=== PATIENT | female | born 1985 ===

== ENCOUNTER 2016-04-01 10:21 | Inpatient (IN) ==
[2016-04-01 11:23] LABS: Basophils % 0.5 % (0.0-0.8); Eosinophils # 0.1 10*3/uL (0.0-0.87); Eosinophils % 0.9 % (0.00-10.9); Hematocrit 35.2 VOL% (35.7-47.0); Immature Granulocytes % 0.2 %; Immature Granulocytes Absolute 0.02 #; Lymphocytes # 2.6 10*3/uL (1.4-4.0); Lymphocytes % 29.6 % (21.3-54.2); Mean Corpuscular HGB Conc 34.1 GM/DL (32-36); Mean Corpuscular Hemoglobin 28 PG (27-34); Mean Platelet Volume 9.6 FL (9.6-12.0); Monocytes # 0.7 10*3/uL (0.11-0.8); Neutrophils # 5.4 10*3/uL (1.4-7.4); Neutrophils % 60.8 % (38.7-73.9); Platelet Count 387 10*3/uL (130-400); Red Blood Count 4.24 10*6/uL (3.8-5.5); White Blood Count 8.9 10*3/uL (4.5-13.71)
--- NOTE | 2016-04-01 11:48 | XRay Report ---
Exam: XR ankle 3V LT Date: 04/01/2016 10:51 AM Comparison: None Indication: Pain and swelling Technique: AP, oblique, and lateral left ankle. Findings: Soft tissue swelling. Evidence of ankle joint effusion. Sclerotic appearing ossific findings are noted beneath the medial malleolus and the distal fibula. Additional ossific/calcific findings are noted in the soft tissues with possible relative sclerosis in the talus. Marginal erosions/cystic findings on either side of the subtalar joint. Sclerotic appearing os trigonum. Impression: Soft tissue swelling with ankle joint effusion. Sclerotic ossific findings beneath the medial malleolus and distal fibula which can be seen with accessory ossicles or remote fractures. Additional multiple small ossific/calcific findings which could be related to more age indeterminant small avulsion fractures, infectious process, synovial calcifications, gouty, CPPD arthritis, or more aggressive synovial pathology/neoplasia. Probable chronic appearing os trigonum with cystic findings in the subtalar joint. MRI including scans with contrast recommended for further evaluation. PROCEDURE INTERPRETED AT [facility] [place] DEPARTMENT OF RADIOLOGY Final Report Signed by: Dr. La Flores
[2016-04-01 11:50] LABS: Calcium 8.2 MG/DL (8.5-10.1); Osmolality,Calculated 286.1 MOS/KG (273-304); Potassium 3.8 MMOL/L (3.5-5.1)
[2016-04-01] MEDS ORDERED: SODIUM CHLORIDE 0.9% 1,000 ML IV STA (11:55)
--- NOTE | 2016-04-01 11:58 | Emergency Department Note ---
Arrival - Arrival Chief Complaint: Extremity Problem Stated Complaint: [facility] ED Nursing Triage Note: Pt c/o left ankle pain and swelling that comes and goes since September last year after a left ankle injury. Mode of Arrival: Ambulatory Time Seen by Provider: 04/01/16 10:34 - History of Present Illness HPI Narrative: 30-year-old female presents today with complaint of swelling and pain of left ankle and foot. Patient states she's had this chronic swelling off and on ever since she injured her foot several months ago. Pain is described as aching and sharp palpation. Rates pain a 9 on a 10 scale today. Has no complaints of fever. Patient is also diabetic and reports she does not check her blood sugars on a regular basis. Date of Last Menstrual Period: Mar 07 Allergies/Adverse Reactions: Allergies Allergy/AdvReac Type Severity Reaction Status Date / Time No Known Allergies Allergy Verified 04/01/16 10:26 Home Medications: Home Medications Medication Instructions Recorded Confirmed Type metFORMIN [Glucophage] 500 mg PO BID 04/01/16 04/01/16 History Review of System - Review of System 12 point system: reviewed and no additional remarkable complaints except as stated - Review of System Constitutional: Present: as per HPI. Absent: fever Musculoskeletal: Present: as per HPI Medical,Surgical,& Family Hx - Medical History Endocrine: History of: Diabetes Mellitus (NIDDM) - Social History Smoking Status: Current every day smoker Exam Physical Examination: Gen.: Well-developed, well-nourished in no acute distress HEENT: Normocephalic. Pupils equal round and reactive to light with normal extraocular movement. Ear canals clear without discharge. Tympanic membranes with good light reflex and visualization of bony structures bilaterally. Throat without swelling, erythema or exudate. Neck: Supple without lymphadenopathy or nuchal rigidity Chest: Heart regular rate and rhythm without murmur. Lungs clear to auscultation and equal bilaterally. Abdomen: Soft and nontender without masses. Bowel sounds normoactive. Back: Without CVA or point tenderness. Extremities: Tenderness and edema of left ankle and foot. Warmth noted however they do not see any obvious symptoms of cellulitis at this time Vital Signs: Vital Signs Temperature 97.3 F L 04/01/16 10:22 Pulse Rate 97 H 04/01/16 10:22 Respiratory Rate 18 04/01/16 10:22 Blood Pressure 110/70 04/01/16 10:22 O2 Sat by Pulse Oximetry 99 04/01/16 10:22 Course - Consultations Consultation #1: Kierra Ludwig AUDIO VISUAL AIDS DIRECTOR Time: 11:59 (Will Evaluate pt in ED for admission.) Results - Labs CBC & BMP: 04/01/16 11:06 04/01/16 11:06 Lab Results: I have reviewed the patients labs Disposition Clinical Impression: Hyperglycemia, Cellulitis Case discussed with: patient Disposition: Still a Patient Condition: Stable Time of Disposition: 12:00
[2016-04-01] MEDS ORDERED: ACETAMINOPHEN 325 MG TABLET PO PRN ×2 (12:11→14:08)
[2016-04-01] MEDS ORDERED: DEXTROSE 50% 25 GM/50 ML VIAL IV PRN ×3 (12:11→14:08)
[2016-04-01] MEDS ORDERED: ZALEPLON 5 MG CAPSULE PO PRN ×2 (12:11→14:08)
[2016-04-01] MEDS ORDERED: GLUCAGON 1 MG VIAL IM PRN ×3 (12:11→14:08)
[2016-04-01] MEDS ORDERED: DOCUSATE SODIUM 100 MG CAPSULE PO PRN ×2 (12:11→14:08)
[2016-04-01] MEDS ORDERED: ONDANSETRON 4 MG/2 ML VIAL IV PRN ×2 (12:11→14:08)
[2016-04-01] MEDS ORDERED: SODIUM CHLORIDE 0.9% 1,000 ML IV SCH (12:30)
[2016-04-01] MEDS ORDERED: CEFTAROLINE 600 MG in SODIUM CHLORIDE 0.9% 100 ML IV SCH (12:30)
[2016-04-01] MEDS ORDERED: ENOXAPARIN 40 MG/0.4 ML SYRINGE SUBCUT SCH (12:30)
--- NOTE | 2016-04-01 12:34 | Hospitalist Consult Note ---
<Kierra Ludwig N - Last Filed: 04/01/16 12:25> Assessment and Plan - Time spent with patient Time spent with patient: Greater than 30 minutes (1) Left ankle pain Status: Acute Assessment and plan: Ankle xray shows joint effusion, recommend orthopedics to tap and potential culture If pt is to be discharged we will recommend home medications await uric acid if pt is admitted we will be glad to follow and assist with DM management Current Visit: Yes (2) Hyperglycemia Status: Acute Assessment and plan: IV fluids in ER, recheck recommend follow up with [facility], compliance with metformin Current Visit: Yes History of Present Illness - Data of Consult Patient: new to practice Consult date: 04/01/16 Requesting Physician: Tolu Singh - Consult Narrative Reason for consult: left ankle pain and tenderness History of present illness: Ms. Marquez is a 30 year old female who presents to the ER today with left ankle pain and swelling. Left ankle is swollen and warm to touch. She states that this has been an ongoing problem with the swelling coming and going since last September. She was told it was a sprain and a bruise by 2 different ERs in the past. She states that it began getting worse again last week, this time more painful than normal and having some tingling on the bottom of her feet. Left ankle is much warmer to touch than right, redness noted around the heel area but no redness radiating up the leg. Good distal PMS noted to left foot. She states painful to ambulate, and painful ROM. Denies prior history of gout. She is a diabetic, glucoses elevated today in the mid 400s. She states that she takes metformin daily, we have recommended that she follow-up with [facility] regarding her diabetes as this is uncontrolled. She is not symptomatic for hyperglycemia. She will receive IV fluids in the Er and we will recheck this. PMH includes DM, treated with Metformin, often non-compliant. PSH includes one C -section. She smokes about 1-2 packs of cigarettes a week and denies alcohol or drug use. At present denies chest pain, SOB, abdominal pain, n/v/d, fever or chills. CC: - Home Medications and Allergies Home Medications: Home Medications Medication Instructions Recorded Confirmed Type metFORMIN [Glucophage] 500 mg PO BID 04/01/16 04/01/16 History Allergies/Adverse Reactions: Allergies Allergy/AdvReac Type Severity Reaction Status Date / Time No Known Allergies Allergy Verified 04/01/16 10:26 Medical,Surgical,& Family Hx - Medical History Endocrine: History of: Diabetes Mellitus (NIDDM) - Social History Smoking Status: Current every day smoker 12 point system: reviewed and no additional remarkable complaints except as stated Exam - Constitutional Vitals: Period Temp Pulse Resp BP Sys/Salcedo Pulse Ox Last 24 Hr 97.3 F 97 18 110/70 99 General appearance: no acute distress - Head Head exam: Present: normal inspection, normocephalic - Eye Eye exam: Present: EOMI. Absent: scleral icterus Pupils: Present: NICCI, normal accommodation - ENT ENT exam: Present: normal exam, normal oropharynx - Neck Neck exam: Present: normal inspection. Absent: lymphadenopathy - Respiratory Respiratory exam: Present: clear to auscultation bilaterally. Absent: wheezes - Cardiovascular Cardiovascular exam: Present: regular rate and rhythm. Absent: tachycardia - GI/Abdominal GI/Abdominal exam: Present: normal bowel sounds, soft. Absent: tenderness - Extremities Exam Extremities exam: Present: full ROM, edema (left ankle), other (erythema to left heel ) - Back Exam Back exam: Present: normal inspection. Absent: muscle spasm - Neurological Exam Neurological exam: Present: alert, oriented X3 - Psychiatric Psychiatric exam: Present: normal affect, normal mood - Skin Skin exam: Present: normal color, warm, dry Results - Labs CBC & BMP: 04/01/16 11:06 04/01/16 11:06 Lab Results: I have reviewed the past 24 hour labs Specialty Discharge - Follow Up or Referrals - Discharge Medications No Action metFORMIN [Glucophage] 500 mg PO BID <Tabatha Daley - Last Filed: 04/01/16 17:51> History of Present Illness - Consult Narrative History of present illness: This will be an H&P as I have discussed the case briefly with the orthopedic surgeon and it was recommended that the patient be admitted to our service and that the orthopedic service the on consult . Ms. Marquez is a 30 year old female w h/o DM II presented with left ankle pain and swelling that started a few days ago but the patient stated that she had similar problem over the past few months without clear diagnosis. Patient denies fever or chills or weight loss or trauma or IV drug use. Patient denies chest pain or SOB or diarrhea or blurred vision or palpitation. Exam as stated below.Gen:a&ox3, Neck no JVD & supple, heart s1s2+ rrr, lung CTAB no wheezing, abd soft/NT, EXT : left pedal swelling mainly around left ankle laterally/tender /LROM/warm/mild erythema. Otherwise no edema. A/P reviewed: - Left ankle pain and effusion could be due to infectious or inflammatory or other cause - hyperglycemia 2/2 uncontrolled DM II - dvt ppx P: discussed case briefly with orthSx and c/s, pain med, pt need tapping of left ankle joint w analysis, check Bd cx and start emperic abx/?antigout med check ESR, PT/OT, pain med prn, insulin regimen/HbA1c, antiemetic, IVF as needed , fall risk/PT/OT. Check MRI left ankle w/wo. CC: Tabatha Daley Exam - Constitutional Vitals: Period Temp Pulse Resp BP Sys/Salcedo Pulse Ox Last 24 Hr 98.0 F-98.2 F 80-84 17-20 119-120/74-78 98 Results - Labs CBC & BMP: 04/01/16 11:06 04/01/16 11:06
--- NOTE | 2016-04-01 14:14 | Hospitalist History & Physical ---
<Mariela Martinez - Last Filed: 04/01/16 14:11> Assessment and Plan - Time spent with patient Time spent with patient: Less than 30 minutes (due to assessment, plan and documentation) (1) Left ankle effusion Status: Acute Assessment and plan: Dr. Daley has spoken w/ Dr. Dela Cruz and he has been consulted to manage her ankle effusion. Current Visit: Yes (2) Hyperglycemia Status: Acute Assessment and plan: continue metformin Current Visit: Yes (3) Left ankle pain Status: Acute Current Visit: Yes (4) Diabetes Status: Acute Assessment and plan: continue metformin low dose sliding scale insulin ordered, accu-checks ac/hs diabetic education consulted- ? compliance. Current Visit: Yes Qualifiers: Diabetes mellitus type: type 2 History of Present Illness Chief complaint: left ankle pain History of present illness: Ms. Marquez is a 30 year old female who presented to the ED today with c/o left ankle pain. Please see Kierra Ludwig NP, Consult note for entire history of exam. Dr. Daley has spoken with Dr. Dela Cruz, and it was suggested that we admit Ms. Marquez and consult him for treatment and evaluation of her left ankle effusion. She will be continued on her Metformin 500 mg PO BID, and Dr. Dela Cruz has been consulted. PRN medications have been ordered. Further plan and assessment to follow. Home Medications Medication Instructions Recorded Confirmed Type metFORMIN [Glucophage] 500 mg PO BID 04/01/16 04/01/16 History Allergies Allergy/AdvReac Type Severity Reaction Status Date / Time No Known Allergies Allergy Verified 04/01/16 10:26 Medical,Surgical,& Family Hx - Medical History Endocrine: History of: Diabetes Mellitus (NIDDM) - Social History Smoking Status: Current every day smoker Exam - Constitutional Vitals: Period Temp Pulse Resp BP Sys/Salcedo Pulse Ox Last 24 Hr 97.3 F-98.0 F 80-97 18-20 110-119/70-78 99 Results - Labs CBC & BMP: 04/01/16 11:06 04/01/16 11:06 Lab Results: I have reviewed the past 24 hour labs <Tabatha Daley - Last Filed: 04/02/16 17:27> Assessment and Plan (1) Left ankle pain Problem details: etiology being worked up. ESR elevated. Status: Acute Current Visit: Yes (2) Left ankle effusion Status: Acute Current Visit: Yes (3) Hyperglycemia due to type 2 diabetes mellitus Status: Acute Current Visit: Yes (4) UTI (urinary tract infection) Problem details: Posible GNR-UTI. Status: Acute Current Visit: Yes (5) Microcytic hypochromic anemia Status: Acute Current Visit: Yes History of Present Illness History of present illness: Please refer to the H&P on the consult note to that's where I added my addendum. Exam - Constitutional Vitals: Period Temp Pulse Resp BP Sys/Salcedo Pulse Ox Last 24 Hr 97.8 F-98.8 F 72-84 16-20 104-136/64-83 97-100 Results - Labs CBC & BMP: 04/02/16 05:42 04/02/16 05:42
[2016-04-01] MEDS: SODIUM CHLORIDE 0.9% 1,000 ML IV SCH (15:40)
[2016-04-01] MEDS: INSULIN LISPRO 100 UNIT/ML SUBCUT SCH ×2 (16:05→21:02)
[2016-04-01] MEDS ORDERED: INSULIN LISPRO 100 UNIT/ML SUBCUT SCH (16:30)
[2016-04-01 19:12] LABS: Apearance,Urine CLOUDY (Clear); Bacteria,Urine Many /HPF (Few); Bilirubin,Urine Negative (Negative); Blood, Urine Small mg/dL (Negative); Glucose,Urine (UA) >=500 mg/dL (Negative); Ketones,Urine Negative (Negative); Nitrite,Urine Negative (Negative); Protein,Urine 30 MG/DL; RBC,Urine 19 /HPF (0-4); Squamous Epithelial Cell,Urine Occasional /HPF (0-10); Urine Color Yellow (Yellow); Urine Specific Gravity 1.009 (1.001-1.035); Urine Urobilinogen < 2.0 EU/DL (0.2-1.0); WBC,Urine 507 /HPF (0-6)
--- NOTE | 2016-04-01 19:44 | Orthopedic Consult Note ---
History of Present Illness Chief complaint: left ankle pain History of present illness: Ms. Marquez is a 30 year old female who has been complaining of chronic left ankle pain for the last 6 months. The patient had an inversion injury. She is told that she had a sprain. She's had intermittent pain and swelling. Generally last several days before resolving. Last week it swelled up and she' s had continued pain. She denies any history of recent injury. She denies any fevers or chills. Patient is a noncompliant diabetic. She's been a diabetic since 2007. She denies any numbness or tingling in her right lower extremity. Since this most recent issue of swelling, she's had some diffuse numbness. She denies any history of steroid use. She states that it takes her 3 weeks to get through pack of cigarettes. She is an occasional drinker. She denies any illicit drugs. She is currently not employed. Exam left lower extremity shows that she is mildly swollen about her ankle. There is no erythema, warmth or induration. She is tender. Flexion and extension of her ankle is limited secondary to pain. There is no pain with inversion eversion of her hindfoot. She has multiple healed skin lesions on the dorsum of her foot. She can flex extend her toes. Sensations intact to light touch to the first dorsal webspace, plantar and dorsal aspects of her foot. She is a 2+ dorsalis pedis pulse. Capillary refills less than 2 seconds. There is no gross deformity. Radiographs ankle show a posterior medial tuberosity fracture of her talus which appears chronic. Also has an ossific density distal to her fibula which is concerning for a prior avulsion fracture. There may be some sclerosis of her talar body. Her talar body also appears slightly flattened. Laboratory values demonstrate a normal uric acid and white count. The patient has an elevated sedimentation rate of 72. And a mildly elevated C-reactive protein. She does have a positive urinalysis. Impression: Left ankle pain and swelling Plan: I'm not sure of the exact etiology of her pain and swelling. It may be related to her previous injury where she may have a chronic nonunion of her posterior medial process of her talus. The patient is an uncontrolled diabetic and this could be Charcot arthropathy or possibly avascular necrosis of her talus. I doubt that this is a septic arthritis from either staph or strep or a crystalline arthritis. I've already ordered a C-reactive protein and sedimentation rate. I'm going to obtain a MRI of her hindfoot and ankle. Depending upon the result of the MRI, I 'll decide whether to aspirate her ankle. As a possible monarthritis, disseminated gonococcus and Chlamydia are also part of the differential diagnosis. I'm going to defer to the hospitalist service for workup of this possibility. Home Medications Medication Instructions Recorded Confirmed Type metFORMIN [Glucophage] 500 mg PO BID 04/01/16 04/01/16 History Allergies Allergy/AdvReac Type Severity Reaction Status Date / Time No Known Allergies Allergy Verified 04/01/16 10:26 Medical,Surgical,& Family Hx - Medical History Endocrine: History of: Diabetes Mellitus (NIDDM) - Social History Smoking Status: Current every day smoker Exam - Constitutional Vitals: Period Temp Pulse Resp BP Sys/Salcedo Pulse Ox Last 24 Hr 98.0 F-98.2 F 80-84 17-20 119-120/74-78 98 Results - Labs CBC & BMP: 04/01/16 11:06 04/01/16 11:06 Specialty Discharge - Follow Up or Referrals - Discharge Medications No Action metFORMIN [Glucophage] 500 mg PO BID
[2016-04-01] MEDS: PIPERACILLIN/TAZOBACTAM 3,375 MG in SODIUM CHLORIDE 0.9% 100 ML IV SCH (20:57)
[2016-04-01] MEDS ORDERED: metFORMIN 500 MG TABLET PO SCH (21:00)
[2016-04-01] MEDS: COLCHICINE 0.6 MG TABLET PO SCH (21:02)
[2016-04-02] MEDS: VANCOMYCIN INJ 1,000 MG in SODIUM CHLORIDE 0.9% 250 ML IV SCH ×3 (00:51→17:17)
[2016-04-02] MEDS: PIPERACILLIN/TAZOBACTAM 3,375 MG in SODIUM CHLORIDE 0.9% 100 ML IV SCH ×3 (04:11→20:33)
[2016-04-02 06:16] LABS: Basophils # 0.1 10*3/uL (0.0-0.2); Basophils % 0.6 % (0.0-0.8); Eosinophils # 0.3 10*3/uL (0.0-0.87); Eosinophils % 3.2 % (0.00-10.9); Hemoglobin 11.3 GM/DL (12.0-16.0); Immature Granulocytes % 0.4 %; Immature Granulocytes Absolute 0.03 #; Mean Corpuscular HGB Conc 33.2 GM/DL (32-36); Mean Corpuscular Hemoglobin 28 PG (27-34); Mean Corpuscular Volume 85.4 FL (87-102); Mean Platelet Volume 9.8 FL (9.6-12.0); Monocytes # 0.7 10*3/uL (0.11-0.8); Monocytes % 7.8 % (1.7-12.7); Neutrophils # 4.4 10*3/uL (1.4-7.4); Platelet Count 345 10*3/uL (130-400); Red Blood Count 3.98 10*6/uL (3.8-5.5); Red Cell Distribution Width 13.2 % (9.3-17.3); White Blood Count 8.4 10*3/uL (4.5-13.71)
[2016-04-02 06:55] LABS: Alanine Aminotransferase < 9 U/L (13-56); Albumin 2.4 G/DL (3.4-5.0); Alkaline Phosphatase 122 U/L (45-117); Aspartate Amino Transferase 10 U/L (0-37); Blood Urea Nitrogen 7 MG/DL (7-18); Calcium 8.5 MG/DL (8.5-10.1); Glucose 237 MG/DL (74-106); Osmolality,Calculated 284.4 MOS/KG (273-304); Potassium 4.4 MMOL/L (3.5-5.1); Sodium 140 MMOL/L (136-145); Total Protein 6.9 G/DL (6.4-8.3)
[2016-04-02] MEDS: SODIUM CHLORIDE 0.9% 1,000 ML IV SCH (08:57)
[2016-04-02] MEDS: PANTOPRAZOLE 40 MG TABLET PO SCH (08:57)
[2016-04-02] MEDS: COLCHICINE 0.6 MG TABLET PO SCH (08:57)
[2016-04-02] MEDS: INSULIN LISPRO 100 UNIT/ML SUBCUT SCH ×4 (08:58→20:34)
[2016-04-02] MEDS ORDERED: PANTOPRAZOLE 40 MG TABLET PO SCH (09:00)
--- NOTE | 2016-04-02 11:09 | Magnetic Resonance Report ---
MRI left ankle Indication: Pain with history of injury 6 months previously and abnormal x-ray Comparison: X-ray 01 April 2016 Technique: Axial sagittal and coronal imaging of the ankles performed both prior to and after contrast. Contrast dose is 12 cc Dotarem. Findings: There is diffusely abnormal edema involving the talus with loss of the talus volume posteriorly and suggestion of previous fracture with displacement of fragment from the posterior medial talus in the medial direction. There is also loss of the normal fat marrow signal within the talus especially the body of the talus. Large joint effusion is present but the ankle and subtalar joints. There is edema in the adjacent soft tissues. There is edema present involving the majority of the calcaneus without distinct fracture line. There is enhancement of the synovium and adjacent soft tissues. Impression: Findings suggests a previous fracture of the posterior medial talus and talus at the posterior subtalar joint with slight medial displacement of the fragment. There is extensive edema within the talus and calcaneus. In addition there is loss of normal fat marrow signal within the body of the talus, may represent osteonecrosis. There is complex joint effusion, edema and enhancement. Infection cannot be excluded. CT may be useful to further define the osseous injury. PROCEDURE INTERPRETED AT [facility] DEPARTMENT OF RADIOLOGY Final Report Signed by: Dr. Chuck Thomas
--- NOTE | 2016-04-02 11:22 | Hospitalist Progress Note ---
Assessment and Plan - Time spent with patient Time spent with patient: Greater than 30 minutes (1) Left ankle pain Problem details: etiology being worked up. ESR elevated. Status: Acute Assessment and plan: related to lt ankle effusion and possibly sequelae of previous fructure, awaits MRI report. Pain med prn. constipation ppx Current Visit: Yes (2) Left ankle effusion Status: Acute Assessment and plan: ortho service following. Lt ankle not tapped yet. Awaits more recs from ortho. MRI done this am. pt on emperic abx and antigout meds once joint tapped and analysis done it will help guide therapy as indicated. Current Visit: Yes (3) Hyperglycemia due to type 2 diabetes mellitus Status: Acute Assessment and plan: c/w insulin regimen, adjust as needed, BS checks. A1c 12. councel. Current Visit: Yes (4) UTI (urinary tract infection) Problem details: Posible GNR-UTI. Status: Acute Assessment and plan: c/w abx. f/u Sn. Current Visit: Yes (5) Microcytic hypochromic anemia Status: Acute Assessment and plan: Hb 11.3, check iron studies. Current Visit: Yes Hospitalist: Subjective Interval history: Pt pain better with pain med. NO acute events O/N. Pt just came back from MRI w/ wo of Lt ankle. Pt denies CP, sob, vomiting, diarrhea, hemoptysis. Lt foot still swallend around lt ankle. Exam - Constitutional Vitals: Period Temp Pulse Resp BP Sys/Salcedo Pulse Ox Last 24 Hr 98 F-98.4 F 72-84 16-20 104-136/64-78 97-100 Exam: Gen:a&ox3, NAD, Neck no JVD & supple, heart s1s2+ rrr, lung CTAB no wheezing, abd soft/NT, EXT : left pedal swelling mainly around left ankle laterally/tender/LROM/warm/ no erythema. Otherwise no edema. HEENT: PERRL Results - Labs CBC & BMP: 04/02/16 05:42 04/02/16 05:42
[2016-04-02 12:41] LABS: % Iron Saturation 26.5 % (18-50)
--- NOTE | 2016-04-02 18:15 | Orthopedic Progress Note ---
Orthopedics - Subjective Interval history: Mrs. Higgins was seen this evening. Her ankle is a little better. Exam is unchanged. There is no induration or erythema. Her ankle demonstrates mild to moderate swelling. MRI report films reviewed demonstrating findings consistent with avascular necrosis. Impression: Posttraumatic avascular necrosis left talus Plan: I've discussed with the patient findings of the MRI. I discussed that this unfortunately is a life changing diagnosis and she can anticipate further problems with her ankle and may in the future require a tibiotalocalcaneal fusion. I have instructed her on the importance of controlling her diabetes. I've advised use of a cast boot and is to be worn 23-1/2 hours per day. She will be nonweightbearing on her left lower extremity. Physical therapy was consulted for crutch training. She does not require aspiration, antibiotics or colchicine for her ankle. She can be discharged when her diabetes and urinary tract infection are optimized. She will follow-up with me in 10-14 days. Exam - Constitutional Vitals: Period Temp Pulse Resp BP Sys/Salcedo Pulse Ox Last 24 Hr 97.8 F-100.8 F 72-110 16-20 104-136/61-83 97-100 Results - Labs CBC & BMP: 04/02/16 05:42 04/02/16 05:42
[2016-04-02] MEDS: INSULIN GLARGINE 100 UNIT/ML SUBCUT SCH (20:33)
[2016-04-03] MEDS: VANCOMYCIN INJ 1,000 MG in SODIUM CHLORIDE 0.9% 250 ML IV SCH ×2 (00:41→23:26)
[2016-04-03] MEDS: PIPERACILLIN/TAZOBACTAM 3,375 MG in SODIUM CHLORIDE 0.9% 100 ML IV SCH ×3 (04:20→21:05)
[2016-04-03 06:38] LABS: Basophils # 0.1 10*3/uL (0.0-0.2); Basophils % 0.4 % (0.0-0.8); Eosinophils # 0.2 10*3/uL (0.0-0.87); Eosinophils % 1.3 % (0.00-10.9); Hematocrit 30.9 VOL% (35.7-47.0); Immature Granulocytes % 0.7 %; Immature Granulocytes Absolute 0.11 #; Lymphocytes # 2.7 10*3/uL (1.4-4.0); Lymphocytes % 17.3 % (21.3-54.2); Mean Corpuscular HGB Conc 32.4 GM/DL (32-36); Mean Corpuscular Hemoglobin 28 PG (27-34); Mean Corpuscular Volume 86.6 FL (87-102); Mean Platelet Volume 10.2 FL (9.6-12.0); Monocytes # 1.1 10*3/uL (0.11-0.8); Monocytes % 6.9 % (1.7-12.7); Neutrophils # 11.5 10*3/uL (1.4-7.4); Neutrophils % 73.4 % (38.7-73.9); Platelet Count 303 10*3/uL (130-400); Red Blood Count 3.57 10*6/uL (3.8-5.5); Red Cell Distribution Width 13.1 % (9.3-17.3); White Blood Count 15.6 10*3/uL (4.5-13.71)
[2016-04-03 07:12] LABS: Calcium 7.6 MG/DL (8.5-10.1); Osmolality,Calculated 279.7 MOS/KG (273-304); Potassium 4.1 MMOL/L (3.5-5.1)
[2016-04-03] MEDS: PANTOPRAZOLE 40 MG TABLET PO SCH (09:43)
[2016-04-03] MEDS: SODIUM CHLORIDE 0.45% 1,000 ML IV SCH ×2 (09:44→23:26)
[2016-04-03] MEDS: INSULIN LISPRO 100 UNIT/ML SUBCUT SCH ×5 (09:44→23:26)
--- NOTE | 2016-04-03 19:35 | Hospitalist Progress Note ---
Assessment and Plan - Time spent with patient Time spent with patient: Greater than 30 minutes (1) Avascular necrosis Status: Acute Assessment and plan: Will discontinue antibiotics. Current Visit: Yes (2) NATHANAEL (acute kidney injury) Status: Acute Assessment and plan: Discontinue nephrotoxic medications including vanc, and increase fluids. May need a Nephro consult. Current Visit: Yes (3) UTI (urinary tract infection) Problem details: Posible GNR-UTI. Status: Acute Assessment and plan: Continue antibiotics! Current Visit: Yes Hospitalist: Subjective Interval history: Patient has no new complaints. Exam - Constitutional Vitals: Period Temp Pulse Resp BP Sys/Salcedo Pulse Ox Last 24 Hr 97.6 F-98.9 F 69-98 16-20 82-108/42-69 97-100 General appearance: no acute distress - Head Head exam: Present: normocephalic, atraumatic - Eye Eye exam: Present: EOMI Pupils: Present: NICCI - ENT ENT exam: Present: normal exam - Neck Neck exam: Present: normal inspection - Respiratory Respiratory exam: Present: clear to auscultation bilaterally. Absent: rhonchi, wheezes - Cardiovascular Cardiovascular exam: Present: regular rate and rhythm. Absent: gallop, rubs, systolic murmur - GI/Abdominal GI/Abdominal exam: Present: normal bowel sounds, soft. Absent: distended, firm , guarding, tenderness, rebound - Extremities Exam Extremities exam: Present: normal inspection, edema, other (left ankle edema and pain). Absent: calf tenderness Results - Labs CBC & BMP: 04/03/16 05:27 04/03/16 05:27 Lab Results: I have reviewed the past 24 hour labs
[2016-04-03] MEDS: INSULIN GLARGINE 100 UNIT/ML SUBCUT SCH (21:05)
[2016-04-03] MEDS: SODIUM CHLORIDE 0.9% 1,000 ML IV SCH (23:27)
[2016-04-04] MEDS: PIPERACILLIN/TAZOBACTAM 3,375 MG in SODIUM CHLORIDE 0.9% 100 ML IV SCH ×3 (03:27→21:25)
[2016-04-04 06:36] LABS: Basophils % 0.4 % (0.0-0.8); Eosinophils # 0.2 10*3/uL (0.0-0.87); Eosinophils % 1.6 % (0.00-10.9); Hematocrit 30.3 VOL% (35.7-47.0); Hemoglobin 9.6 GM/DL (12.0-16.0); Immature Granulocytes % 0.5 %; Immature Granulocytes Absolute 0.05 #; Lymphocytes # 2.2 10*3/uL (1.4-4.0); Lymphocytes % 21.6 % (21.3-54.2); Mean Corpuscular HGB Conc 31.7 GM/DL (32-36); Mean Corpuscular Hemoglobin 28 PG (27-34); Mean Corpuscular Volume 87.8 FL (87-102); Mean Platelet Volume 10.3 FL (9.6-12.0); Monocytes # 1.2 10*3/uL (0.11-0.8); Neutrophils # 6.6 10*3/uL (1.4-7.4); Neutrophils % 63.9 % (38.7-73.9); Platelet Count 280 10*3/uL (130-400); Red Blood Count 3.45 10*6/uL (3.8-5.5); White Blood Count 10.3 10*3/uL (4.5-13.71)
[2016-04-04] MEDS: SODIUM CHLORIDE 0.45% 1,000 ML IV SCH ×4 (06:40→11:48)
[2016-04-04 07:13] LABS: Calcium 7.7 MG/DL (8.5-10.1); Osmolality,Calculated 286.8 MOS/KG (273-304); Potassium 4.3 MMOL/L (3.5-5.1)
[2016-04-04] MEDS: INSULIN LISPRO 100 UNIT/ML SUBCUT SCH ×5 (09:05→21:40)
[2016-04-04] MEDS: PANTOPRAZOLE 40 MG TABLET PO SCH (09:06)
--- NOTE | 2016-04-04 09:25 | Orthopedic Progress Note ---
Orthopedics - Subjective Interval history: Ms Marquez has worked with therapy and has a cast boot. Her ankle feels better and edema is decreased. She has less pain with rom of her ankle. Posttraumatic AVN left talus Will sign off. Instructions reviewed. She will follow up in 10 to 14 days. Exam - Constitutional Vitals: Period Temp Pulse Resp BP Sys/Salcedo Pulse Ox Last 24 Hr 97.6 F-98.7 F 73-86 16-20 103-121/66-74 92-100 Results - Labs CBC & BMP: 04/04/16 05:30 04/04/16 05:30
--- NOTE | 2016-04-04 09:43 | Hospitalist Progress Note ---
Assessment and Plan - Time spent with patient Time spent with patient: Greater than 30 minutes (1) Avascular necrosis Status: Acute Assessment and plan: Continue supportive care. Appreciate Orthopedics evaluation. Current Visit: Yes (2) NATHANAEL (acute kidney injury) Status: Acute Assessment and plan: Discontinue nephrotoxic medications including vanc, and increase fluids. Will consult Nephrology. Current Visit: Yes (3) UTI (urinary tract infection) Problem details: Posible GNR-UTI. Status: Acute Assessment and plan: Continue antibiotics. Current Visit: Yes Hospitalist: Subjective Interval history: No complaints, no overnight events. Reports improving left ankle swelling. Exam - Constitutional Vitals: Period Temp Pulse Resp BP Sys/Salcedo Pulse Ox Last 24 Hr 97.6 F-98.7 F 73-86 16-20 103-121/66-74 92-100 General appearance: no acute distress - Head Head exam: Present: normocephalic, atraumatic - Eye Eye exam: Present: EOMI Pupils: Present: NICCI - ENT ENT exam: Present: normal exam - Neck Neck exam: Present: normal inspection - Respiratory Respiratory exam: Present: clear to auscultation bilaterally. Absent: rhonchi, wheezes - Cardiovascular Cardiovascular exam: Present: regular rate and rhythm. Absent: gallop, rubs, systolic murmur - GI/Abdominal GI/Abdominal exam: Present: normal bowel sounds, soft. Absent: distended, firm , guarding, tenderness, rebound - Extremities Exam Extremities exam: Present: normal inspection. Absent: calf tenderness, edema Results - Labs CBC & BMP: 04/04/16 05:30 04/04/16 05:30 Lab Results: I have reviewed the past 24 hour labs Specialty Discharge - Follow Up or Referrals Follow up with: North Dela Cruz Jr., MD [Physician] - 2 Weeks
--- NOTE | 2016-04-04 13:57 | Nephrology Consult Note ---
History of Present Illness Chief complaint: ARF History of present illness: Ms. Marquez is a 30 year old female with manual history of diabetes mellitus who has complicated left ankle fracture/avascular necrosis. On admission several days ago she received vancomycin 1 g every 8 hours with her normal renal function but her trough level when checked yesterday was 48. The flank masses been stop in the interval her creatinine is risen from 0.7 on admission to 2.2. She is making urine and feels fine. Her chest is clear heart without rub or gallop MsVijaya no peripheral edema medicines are reviewed here and she's currently taking Zosyn and has an Escherichia coli urinary tract infection which was somewhat symptomatic with urinary frequency on admission. Urinalysis not been done and we'll get one of those. I expect her creatinine to rise a bit further before it improves. I do think that we can expect improvement and from what I can review of her record, it looks like this is related to drug toxicity and will improve. Impression #1 acute renal failure secondary to vancomycin nephrotoxicity #2 diabetes mellitus #3 complex ankle injuries/avascular necrosis Plan: Monitor creatinine and I do expect it to continue to rise before improving Home Medications Medication Instructions Recorded Confirmed Type metFORMIN [Glucophage] 500 mg PO BID 04/01/16 04/01/16 History Allergies Allergy/AdvReac Type Severity Reaction Status Date / Time No Known Allergies Allergy Verified 04/01/16 10:26 Medical,Surgical,& Family Hx - Medical History Endocrine: History of: Diabetes Mellitus (NIDDM) - Social History Smoking Status: Current every day smoker Review of Systems 12 point system: reviewed and no additional remarkable complaints except as stated Exam - Vital Signs Vital signs: Period Temp Pulse Resp BP Sys/Salcedo Pulse Ox Last 24 Hr 97.6 F-99.6 F 71-86 16-20 107-129/66-78 92-100 - General Appearance General appearance: well-developed EENT: ATNC Neck: no JVD, no thyromegaly, no carotid bruit, supple Respiratory: no kyphosis, no scoliosis Cardiology: no murmurs, no rub, no gallops, no edema, regular rate, regular rhythm, normal S1, normal S2 Gastrointestinal: normoactive bowel sounds Integumentary: no rash, warm and dry Neurologic: no focal deficit, no asterixis, alert and oriented x3, reflexes 2+ and symmetric, gait normal, strength 5/5 Musculoskeletal: no deformities (boot left foot), no erythema, no cyanosis, no clubbing Psychiatric: mood/affect appropriate, cooperative Results - Labs CBC & BMP: 04/04/16 05:30 04/04/16 05:30 Assessment and Plan - Time spent with patient Time spent with patient: Greater than 30 minutes (1) ARF (acute renal failure) Status: Acute Current Visit: Yes (2) Diabetes Status: Acute Current Visit: Yes Qualifiers: Diabetes mellitus type: type 2 (3) UTI (urinary tract infection) Problem details: Posible GNR-UTI. Status: Acute Current Visit: Yes Specialty Discharge - Follow Up or Referrals Follow up with: North Dela Cruz Jr., MD [Physician] - 04/17/16 1:45 pm
[2016-04-04] MEDS: INSULIN GLARGINE 100 UNIT/ML SUBCUT SCH (21:27)
[2016-04-05 02:51] LABS: Apearance,Urine Slightly Hazy (Clear); Bacteria,Urine Occasional /HPF (Few); Bilirubin,Urine Negative (Negative); Blood, Urine Moderate mg/dL (Negative); Glucose,Urine (UA) 50 mg/dL (Negative); Ketones,Urine Negative (Negative); Mucus,Urine Occasional /LPF (Occasional); Nitrite,Urine Negative (Negative); Protein,Urine Negative; RBC,Urine 29 /HPF (0-4); Squamous Epithelial Cell,Urine Occasional /HPF (0-10); Urine Color Straw (Yellow); Urine Specific Gravity 1.003 (1.001-1.035); Urine Urobilinogen < 2.0 EU/DL (0.2-1.0); WBC,Urine 62 /HPF (0-6)
[2016-04-05] MEDS: PIPERACILLIN/TAZOBACTAM 3,375 MG in SODIUM CHLORIDE 0.9% 100 ML IV SCH ×3 (04:30→20:58)
[2016-04-05 04:52] LABS: Basophils # 0.1 10*3/uL (0.0-0.2); Basophils % 0.4 % (0.0-0.8); Eosinophils # 0.2 10*3/uL (0.0-0.87); Eosinophils % 1.3 % (0.00-10.9); Hematocrit 30.6 VOL% (35.7-47.0); Hemoglobin 9.9 GM/DL (12.0-16.0); Immature Granulocytes % 0.3 %; Immature Granulocytes Absolute 0.04 #; Lymphocytes # 3.6 10*3/uL (1.4-4.0); Lymphocytes % 28.7 % (21.3-54.2); Mean Corpuscular HGB Conc 32.4 GM/DL (32-36); Mean Corpuscular Hemoglobin 28 PG (27-34); Mean Corpuscular Volume 87.2 FL (87-102); Mean Platelet Volume 10.4 FL (9.6-12.0); Monocytes # 1.4 10*3/uL (0.11-0.8); Monocytes % 11.6 % (1.7-12.7); Neutrophils # 7.1 10*3/uL (1.4-7.4); Neutrophils % 57.7 % (38.7-73.9); Platelet Count 280 10*3/uL (130-400); Red Blood Count 3.51 10*6/uL (3.8-5.5); Red Cell Distribution Width 13.1 % (9.3-17.3); White Blood Count 12.4 10*3/uL (4.5-13.71)
[2016-04-05 05:26] LABS: Calcium 7.9 MG/DL (8.5-10.1); Osmolality,Calculated 281.3 MOS/KG (273-304); Potassium 3.9 MMOL/L (3.5-5.1)
[2016-04-05] MEDS: INSULIN LISPRO 100 UNIT/ML SUBCUT SCH ×4 (07:30→21:00)
[2016-04-05] MEDS: PANTOPRAZOLE 40 MG TABLET PO SCH (10:25)
[2016-04-05] MEDS: SODIUM CHLORIDE 0.45% 1,000 ML IV SCH ×4 (10:35→13:48)
--- NOTE | 2016-04-05 16:07 | Hospitalist Progress Note ---
Assessment and Plan - Time spent with patient Time spent with patient: Greater than 30 minutes (1) Avascular necrosis Status: Acute Assessment and plan: Continue supportive care. Appreciate Orthopedics evaluation. Current Visit: Yes (2) NATHANAEL (acute kidney injury) Status: Acute Assessment and plan: Discontinue nephrotoxic medications including vanc, and increase fluids. Appreciate Nephrologys evaluation. Current Visit: Yes (3) UTI (urinary tract infection) Problem details: Posible GNR-UTI. Status: Acute Assessment and plan: Continue antibiotics. Current Visit: Yes (4) Swelling of joint, ankle, left Status: Acute Assessment and plan: Since discontinuation of vancomycin the patient has been having rising fevers. Also to note the patient's swelling dramatically improved while vancomycin was initiated. There is concern for a septic joint, will ask IR to perform an arthrocentesis. Consult ID. Start Linezolid. Current Visit: Yes Hospitalist: Subjective Interval history: Patient continues to have fevers since the vancomycin has been discontinued. No complaints otherwise. Exam - Constitutional Vitals: Period Temp Pulse Resp BP Sys/Salcedo Pulse Ox Last 24 Hr 98.6 F-100.5 F 66-87 16-20 116-147/72-95 99-100 General appearance: no acute distress - Head Head exam: Present: normocephalic, atraumatic - Eye Eye exam: Present: EOMI Pupils: Present: NICCI - ENT ENT exam: Present: normal exam - Neck Neck exam: Present: normal inspection - Respiratory Respiratory exam: Present: clear to auscultation bilaterally. Absent: rhonchi, wheezes - Cardiovascular Cardiovascular exam: Present: regular rate and rhythm. Absent: gallop, rubs, systolic murmur - GI/Abdominal GI/Abdominal exam: Present: normal bowel sounds, soft. Absent: distended, firm , guarding, tenderness, rebound - Extremities Exam Extremities exam: Present: normal inspection, other (left ankle is improved in swelling.). Absent: calf tenderness, edema Results - Labs CBC & BMP: 04/05/16 03:40 04/05/16 03:40 Lab Results: I have reviewed the past 24 hour labs Specialty Discharge - Follow Up or Referrals Follow up with: North Dela Cruz Jr., MD [Physician] - 04/17/16 1:45 pm
--- NOTE | 2016-04-05 16:11 | Nephrology Progress Note ---
Nephrology - PN: Subj Interval history: Ms. Gautam is improved with a creatinine of 2.3. Her acute renal failure seems to have plateaued. Hopefully with this she will begin to drop her creatinine in the next day or 2. I don't expect any long-term sequelae of this and I think she will drop back to her previous baseline renal function. Chest is clear she is in no distress. She still has her left foot in the cast boot and is tolerating it well. Exam (PN)-Nephrology - Vital Signs Vital signs: Period Temp Pulse Resp BP Sys/Salcedo Pulse Ox Last 24 Hr 98.6 F-100.5 F 66-87 16-20 116-147/72-95 99-100 - Lab 04/05/16 03:40 04/05/16 03:40 Most recent lab results Calcium 7.9 MG/DL (8.5-10.1) L 04/05/16 03:40 Assessment and Plan (1) ARF (acute renal failure) Status: Acute Current Visit: Yes (2) Diabetes Status: Acute Current Visit: Yes Qualifiers: Diabetes mellitus type: type 2 (3) UTI (urinary tract infection) Problem details: Posible GNR-UTI. Status: Acute Current Visit: Yes Specialty Discharge - Follow Up or Referrals Follow up with: North Dela Cruz Jr., MD [Physician] - 04/17/16 1:45 pm
[2016-04-05] MEDS: LINEZOLID INJ 600 MG in PREMIX 1 EACH IV SCH (18:25)
[2016-04-05] MEDS: INSULIN GLARGINE 100 UNIT/ML SUBCUT SCH (21:47)
[2016-04-06] MEDS: PIPERACILLIN/TAZOBACTAM 3,375 MG in SODIUM CHLORIDE 0.9% 100 ML IV SCH ×3 (04:02→21:34)
[2016-04-06] MEDS: SODIUM CHLORIDE 0.45% 1,000 ML IV SCH ×4 (04:09→16:30)
[2016-04-06 05:13] LABS: Basophils % 0.2 % (0.0-0.8); Eosinophils # 0.3 10*3/uL (0.0-0.87); Eosinophils % 2.3 % (0.00-10.9); Hematocrit 30.6 VOL% (35.7-47.0); Hemoglobin 9.9 GM/DL (12.0-16.0); Immature Granulocytes % 0.4 %; Immature Granulocytes Absolute 0.06 #; Lymphocytes # 3.4 10*3/uL (1.4-4.0); Lymphocytes % 25.1 % (21.3-54.2); Mean Corpuscular HGB Conc 32.4 GM/DL (32-36); Mean Corpuscular Hemoglobin 28 PG (27-34); Mean Corpuscular Volume 85.5 FL (87-102); Mean Platelet Volume 10.4 FL (9.6-12.0); Monocytes # 1.6 10*3/uL (0.11-0.8); Monocytes % 11.5 % (1.7-12.7); Neutrophils # 8.2 10*3/uL (1.4-7.4); Neutrophils % 60.5 % (38.7-73.9); Platelet Count 298 10*3/uL (130-400); Red Blood Count 3.58 10*6/uL (3.8-5.5); Red Cell Distribution Width 12.9 % (9.3-17.3); White Blood Count 13.5 10*3/uL (4.5-13.71)
[2016-04-06 05:40] LABS: Calcium 7.7 MG/DL (8.5-10.1); Osmolality,Calculated 275.7 MOS/KG (273-304); Potassium 4.1 MMOL/L (3.5-5.1)
[2016-04-06] MEDS: INSULIN LISPRO 100 UNIT/ML SUBCUT SCH ×4 (07:53→21:32)
[2016-04-06] MEDS: LINEZOLID INJ 600 MG in PREMIX 1 EACH IV SCH ×2 (08:58→19:22)
[2016-04-06] MEDS: PANTOPRAZOLE 40 MG TABLET PO SCH (09:36)
--- NOTE | 2016-04-06 10:22 | Nephrology Progress Note ---
Nephrology - PN: Subj Interval history: Ms. Gautam is seen in follow-up of her acute renal impairment. Serum creatinine is 2.5 today and she is in no distress. Her chest is clear. She continues to wear the left ankle cast boot. We anticipate her creatinine to fall back to baseline. Exam (PN)-Nephrology - Vital Signs Vital signs: Period Temp Pulse Resp BP Sys/Salcedo Pulse Ox Last 24 Hr 97.7 F-100.5 F 75-87 18-20 112-148/71-95 96-100 - Lab 04/06/16 04:16 04/06/16 04:16 Most recent lab results Calcium 7.7 MG/DL (8.5-10.1) L 04/06/16 04:16 Assessment and Plan (1) ARF (acute renal failure) Status: Acute Current Visit: Yes (2) Diabetes Status: Acute Current Visit: Yes Qualifiers: Diabetes mellitus type: type 2 (3) UTI (urinary tract infection) Problem details: Posible GNR-UTI. Status: Acute Current Visit: Yes Specialty Discharge - Follow Up or Referrals Follow up with: North Dela Cruz Jr., MD [Physician] - 04/17/16 1:45 pm
--- NOTE | 2016-04-06 14:24 | Hospitalist Progress Note ---
Assessment and Plan - Time spent with patient Time spent with patient: Greater than 30 minutes (1) Avascular necrosis Status: Acute Assessment and plan: Continue supportive care. Appreciate Orthopedics evaluation. Current Visit: Yes (2) NATHANAEL (acute kidney injury) Status: Acute Assessment and plan: Discontinue nephrotoxic medications including vanc, and increase fluids. Appreciate Nephrologys evaluation. Current Visit: Yes (3) UTI (urinary tract infection) Problem details: Posible GNR-UTI. Status: Acute Assessment and plan: Continue antibiotics. Current Visit: Yes (4) Swelling of joint, ankle, left Status: Acute Assessment and plan: Since discontinuation of vancomycin the patient has been having rising fevers. Also to note the patient's swelling dramatically improved while vancomycin was on board. There is concern for a septic joint, will ask IR to perform an arthrocentesis. Consult ID. Start Linezolid. Current Visit: Yes Hospitalist: Subjective Interval history: States she feels a little chilly. Exam - Constitutional Vitals: Period Temp Pulse Resp BP Sys/Salcedo Pulse Ox Last 24 Hr 97.7 F-100.3 F 63-82 18-20 100-148/68-95 96-100 General appearance: no acute distress - Head Head exam: Present: normocephalic, atraumatic - Eye Eye exam: Present: EOMI Pupils: Present: NICCI - ENT ENT exam: Present: normal exam - Neck Neck exam: Present: normal inspection - Respiratory Respiratory exam: Present: clear to auscultation bilaterally. Absent: rhonchi, wheezes - Cardiovascular Cardiovascular exam: Present: regular rate and rhythm. Absent: gallop, rubs, systolic murmur - GI/Abdominal GI/Abdominal exam: Present: normal bowel sounds, soft. Absent: distended, firm , guarding, tenderness, rebound - Extremities Exam Extremities exam: Present: normal inspection. Absent: calf tenderness, edema Results - Labs CBC & BMP: 04/06/16 04:16 04/06/16 04:16 Lab Results: I have reviewed the past 24 hour labs Specialty Discharge - Follow Up or Referrals Follow up with: North Dela Cruz Jr., MD [Physician] - 04/17/16 1:45 pm
[2016-04-06] MEDS: INSULIN GLARGINE 100 UNIT/ML SUBCUT SCH (21:31)
[2016-04-07] MEDS: SODIUM CHLORIDE 0.45% 1,000 ML IV SCH ×3 (04:05→17:02)
[2016-04-07 06:23] LABS: Basophils % 0.4 % (0.0-0.8); Eosinophils # 0.4 10*3/uL (0.0-0.87); Eosinophils % 3.9 % (0.00-10.9); Hematocrit 30.1 VOL% (35.7-47.0); Hemoglobin 9.7 GM/DL (12.0-16.0); Immature Granulocytes % 0.4 %; Immature Granulocytes Absolute 0.04 #; Lymphocytes # 2.2 10*3/uL (1.4-4.0); Lymphocytes % 21.7 % (21.3-54.2); Mean Corpuscular HGB Conc 32.2 GM/DL (32-36); Mean Corpuscular Hemoglobin 28 PG (27-34); Mean Platelet Volume 10.3 FL (9.6-12.0); Monocytes # 1.2 10*3/uL (0.11-0.8); Monocytes % 11.4 % (1.7-12.7); Neutrophils # 6.4 10*3/uL (1.4-7.4); Neutrophils % 62.2 % (38.7-73.9); Platelet Count 302 10*3/uL (130-400); Red Blood Count 3.46 10*6/uL (3.8-5.5); Red Cell Distribution Width 12.8 % (9.3-17.3); White Blood Count 10.3 10*3/uL (4.5-13.71)
[2016-04-07 06:40] LABS: Osmolality,Calculated 277.8 MOS/KG (273-304); Potassium 4.3 MMOL/L (3.5-5.1)
[2016-04-07] MEDS: PIPERACILLIN/TAZOBACTAM 3,375 MG in SODIUM CHLORIDE 0.9% 100 ML IV SCH ×2 (06:48→14:38)
--- NOTE | 2016-04-07 08:43 | Nephrology Progress Note ---
Nephrology - PN: Subj Interval history: Ms. Reeves is improved and her creatinine has dropped 2.4. This represents improvement in her acute renal failure yesterday's creatinine was 2.5 which was its peak. She is hoping to go home soon. As far as her renal failure is concerned she can go. Exam (PN)-Nephrology - Vital Signs Vital signs: Period Temp Pulse Resp BP Sys/Salcedo Pulse Ox Last 24 Hr 97.6 F-98.9 F 65-77 18-21 120-141/81-91 98-100 - Lab 04/07/16 05:27 04/07/16 05:27 Most recent lab results Calcium 8.0 MG/DL (8.5-10.1) L 04/07/16 05:27 Assessment and Plan (1) ARF (acute renal failure) Status: Acute Current Visit: Yes (2) Diabetes Status: Acute Current Visit: Yes Qualifiers: Diabetes mellitus type: type 2 (3) UTI (urinary tract infection) Problem details: Posible GNR-UTI. Status: Acute Current Visit: Yes Specialty Discharge - Follow Up or Referrals Follow up with: North Dela Cruz Jr., MD [Physician] - 04/17/16 1:45 pm
[2016-04-07] MEDS: PANTOPRAZOLE 40 MG TABLET PO SCH (09:05)
[2016-04-07] MEDS: INSULIN LISPRO 100 UNIT/ML SUBCUT SCH ×4 (09:05→22:13)
[2016-04-07] MEDS: LINEZOLID INJ 600 MG in PREMIX 1 EACH IV SCH ×2 (09:17→22:12)
--- NOTE | 2016-04-07 13:16 | Infectious Disease Consult ---
Assessment and Plan (1) Diabetes Status: Acute Current Visit: Yes Qualifiers: Diabetes mellitus type: type 2 (2) Left ankle effusion Status: Acute Assessment and plan: It seems the patient may have septic arthritis to Lt ankle. Recommendations: agree with current empiric antibiotics (but adjust dose of Zosyn for current renal function). Hopefully synovial fluid cultures will yield an organism even though patient has been on antibiotics for the past week. Monitor CBC on linezolid. Thank you very much for the consult. Will check back on patient on Thursday. Current Visit: Yes (3) ARF (acute renal failure) Status: Acute Assessment and plan: Probably from IV contrast dye and vancomycin. I am going to renally adjust dose of Zosyn to 3.375g q12h. Renal following. Current Visit: Yes History of Present Illness Chief complaint: Lt ankle infection History of present illness: Ms. Marquez is a 30 year old female who twisted her ankle last summer (about September) has had on and off swelling of the lateral aspect of the joint since then. She was told she sprained it, however she has had persisting problems with it and swelling worsened over the past few weeks with pain so she decided to come to this hospital. Since admission she has been having on and off chills and low grade fever. MRI of the ankle showed osteonecrosis and complexed effusion. There has been no improvement with antibiotics (initially Zosyn and vancomycin, yesterday linezolid replaced vancomycin due to worsening renal failure). She has been scheduled for IR guided arthrocentesis of the joint today. I am asked to assist with management. Home Medications Medication Instructions Recorded Confirmed Type metFORMIN [Glucophage] 500 mg PO BID 04/01/16 04/01/16 History Allergies Allergy/AdvReac Type Severity Reaction Status Date / Time No Known Allergies Allergy Verified 04/01/16 10:26 12 point system: reviewed and no additional remarkable complaints except as stated (per HPI) Medical,Surgical,& Family Hx - Medical History Endocrine: History of: Diabetes Mellitus (NIDDM) - Social History Smoking Status: Current every day smoker Infectious Disease Exam H&P - Constitutional Vitals: Vital Signs Temp Pulse Resp BP Pulse Ox 97.8 F 70 18 129/86 99 04/07/16 12:00 04/07/16 12:00 04/07/16 12:00 04/07/16 12:00 04/07/16 12:00 Intake and Output 04/06/16 04/07/16 04/07/16 23:59 07:59 15:59 Intake Total 940 / 940 1100 / 1100 1000 / 1000 Output Total 600 / 600 1275 / 1275 Balance 340 / 340 -175 / -175 1000 / 1000 Intake: IV 400 / 400 1100 / 1100 1000 / 1000 Zyvox Inj 600 mg In 300 / 300 Premix 1 Each @ 300 mls/ hr IV Q12H [facility] Rx#: [id number] Zosyn 3,375 mg In Ns 100 100 / 100 100 / 100 ml @ 25 mls/hr IV Q8H [facility] Rx#:[id number] 1/2Ns 1,000 ml @ 150 mls/ 1000 / 1000 1000 / 1000 hr IV .Q6H40M [facility] Rx#: [id number] Oral 540 / 540 Output: Urine 600 / 600 1275 / 1275 Stool 0 / 0 Emesis 0 / 0 Other: Voiding Method Toilet Toilet # Voids 2 # Bowel Movements 0 Exam: General: Patient relatively comfortable HEENT: Mucous membranes pink and moist, anicteric acyanotic, NICCI, no oral exudates Neck: Supple, no thyroid gland enlargement, no lymphadenopathy Respiratory system: Breath sounds vesicular, no crepitations or wheezes Cardiovascular: Normal S1 and S2, no murmurs appreciated Abdomen: Normal bowel sounds, soft nontender throughout, no organomegaly or mass Genitourinary: No suprapubic pain or bladder distention Extremities: no leg edema, Rt ankle swollen especially laterally, and there is decreased ROM, with pain present. NO erythema or other changes of overlying skin Skin: No rash Reports - Labs CBC & BMP: 04/07/16 05:27 04/07/16 05:27 Labs: Laboratory Results - last 24 hr 04/06/16 04/06/16 04/07/16 14:59 18:55 05:27 WBC 10.3 RBC 3.46 L Hgb 9.7 L Hct 30.1 L MCV 87.0 MCH 28 MCHC 32.2 RDW 12.8 Plt Count 302 MPV 10.3 Neut % (Auto) 62.2 Lymph % (Auto) 21.7 Cocke % (Auto) 11.4 Eos % (Auto) 3.9 Baso % (Auto) 0.4 Neut # (Auto) 6.4 Lymph # (Auto) 2.2 Cocke # (Auto) 1.2 H Eos # (Auto) 0.4 Baso # (Auto) 0.0 Immature Gran % 0.4 Nucleated RBC % 0.0 Immature Gran # 0.04 Nucleated RBCs # 0.00 Sodium Potassium Chloride Carbon Dioxide Anion Gap BUN Creatinine GFR Calculation BUN/Creatinine Ratio Glucose POC Glucose 157 H 153 H Calculated Osmolality Calcium 04/07/16 04/07/16 04/07/16 05:27 07:34 11:39 WBC RBC Hgb Hct MCV MCH MCHC RDW Plt Count MPV Neut % (Auto) Lymph % (Auto) Cocke % (Auto) Eos % (Auto) Baso % (Auto) Neut # (Auto) Lymph # (Auto) Cocke # (Auto) Eos # (Auto) Baso # (Auto) Immature Gran % Nucleated RBC % Immature Gran # Nucleated RBCs # Sodium 137 Potassium 4.3 Chloride 103 Carbon Dioxide 24 Anion Gap 14.3 BUN 14 Creatinine 2.40 H GFR Calculation 26 BUN/Creatinine Ratio 5.00 L Glucose 162 H POC Glucose 148 H 169 H Calculated Osmolality 277.8 Calcium 8.0 L - Reports Microbiology: Microbiology 04/05/16 Unknown Urine Culture - Final Urine,Voided No Growth at 48 hours. - Diagnostic Findings Procedure: MRI: report reviewed by me (Rt ankle MRI result reviewed) Specialty Discharge - Follow Up or Referrals Follow up with: North Dela Cruz Jr., MD [Physician] - 04/17/16 1:45 pm
--- NOTE | 2016-04-07 14:06 | Post Interventional Procedure ---
Pre-op diagnosis: left ankle swelling and joint effusion, possible septic joint Post-op diagnosis: same Procedure: ankle joint aspiration Contrast: none Flouroscopy: 0.2 min Radiologist: Melchor Aleman Anesthesia: local Specimens: other (two separate samples sent for GC/cultue and purple top for other studies) Estimated blood loss: none Complications: none Condition: stable Description/Findings: ankle swelling noted clinically. joint otherwise normal radiographically Assessment and Plan - Time spent with patient Time spent with patient: Less than 30 minutes (1) Left ankle effusion Problem details: ankle joint pain, swelling and effusion on MRI Status: Acute Assessment and plan: joint aspiration done and samples sent for requested studies Current Visit: Yes
[2016-04-07 14:08] LABS: Lymphocytes,Synovial Fluid 30 %; Neutrophils,Synovial Fluid 63 %
--- NOTE | 2016-04-07 14:10 | Interventional Radiology Rpt ---
IR fluoro guided needle place Clinical Information: LEFT ANKLE SWELLING/SEPTIC JOINT Total fluoroscopy time: 0.2 MIN Comparison: Prior MRI dated 04/02/16 Findings: Under fluoroscopic guidance, an 18-gauge needle was advanced into the left ankle joint. Approximately 1.5 mL of serous straw-colored aspirate was removed the 2 separate samples. The aspirate was preserved and taken to the lab for the requested studies. A sterile dressing was applied. The patient tolerated the procedure well left the procedure area in stable condition. Impression: Fluoroscopically guided left ankle joint fluid aspiration as detailed above. PROCEDURE INTERPRETED AT [facility] DEPARTMENT OF RADIOLOGY Final Report Signed by: Melchor Aleman
--- NOTE | 2016-04-07 14:22 | Hospitalist Progress Note ---
Assessment and Plan - Time spent with patient Time spent with patient: Greater than 30 minutes (1) Swelling of joint, ankle, left Status: Acute Assessment and plan: Continue abx. Appreciate ID assistance. Current Visit: Yes (2) NATHANAEL (acute kidney injury) Status: Acute Assessment and plan: Appreciate Nephrologys evaluation. Current Visit: Yes (3) UTI (urinary tract infection) Problem details: Posible GNR-UTI. Status: Acute Assessment and plan: Continue antibiotics. Current Visit: Yes Hospitalist: Subjective Interval history: No complaints, no overnight events. Left ankle is doing better. Exam - Constitutional Vitals: Period Temp Pulse Resp BP Sys/Salcedo Pulse Ox Last 24 Hr 97.6 F-98.9 F 66-77 18-21 125-156/81-100 98-100 General appearance: no acute distress - Head Head exam: Present: normocephalic, atraumatic - Eye Eye exam: Present: EOMI Pupils: Present: NICCI - ENT ENT exam: Present: normal exam - Neck Neck exam: Present: normal inspection - Respiratory Respiratory exam: Present: clear to auscultation bilaterally. Absent: rhonchi, wheezes - Cardiovascular Cardiovascular exam: Present: regular rate and rhythm. Absent: gallop, rubs, systolic murmur - GI/Abdominal GI/Abdominal exam: Present: normal bowel sounds, soft. Absent: distended, firm , guarding, tenderness, rebound - Extremities Exam Extremities exam: Present: normal inspection. Absent: calf tenderness, edema Results - Labs CBC & BMP: 04/07/16 05:27 04/07/16 05:27 Lab Results: I have reviewed the past 24 hour labs Specialty Discharge - Follow Up or Referrals Follow up with: North Dela Cruz Jr., MD [Physician] - 04/17/16 1:45 pm
[2016-04-07] MEDS: INSULIN GLARGINE 100 UNIT/ML SUBCUT SCH (22:13)
[2016-04-08] MEDS: PIPERACILLIN/TAZOBACTAM 3,375 MG in SODIUM CHLORIDE 0.9% 100 ML IV SCH ×2 (00:40→12:30)
[2016-04-08] MEDS: SODIUM CHLORIDE 0.45% 1,000 ML IV SCH ×3 (02:16→11:18)
[2016-04-08 06:17] LABS: Basophils % 0.3 % (0.0-0.8); Eosinophils # 0.3 10*3/uL (0.0-0.87); Eosinophils % 3.5 % (0.00-10.9); Hematocrit 30.5 VOL% (35.7-47.0); Hemoglobin 9.8 GM/DL (12.0-16.0); Immature Granulocytes % 0.3 %; Immature Granulocytes Absolute 0.03 #; Lymphocytes # 2.3 10*3/uL (1.4-4.0); Lymphocytes % 25.3 % (21.3-54.2); Mean Corpuscular HGB Conc 32.1 GM/DL (32-36); Mean Corpuscular Hemoglobin 28 PG (27-34); Mean Corpuscular Volume 88.4 FL (87-102); Monocytes # 0.9 10*3/uL (0.11-0.8); Monocytes % 10.3 % (1.7-12.7); Neutrophils # 5.4 10*3/uL (1.4-7.4); Neutrophils % 60.3 % (38.7-73.9); Platelet Count 334 10*3/uL (130-400); Red Blood Count 3.45 10*6/uL (3.8-5.5); Red Cell Distribution Width 12.7 % (9.3-17.3); White Blood Count 8.9 10*3/uL (4.5-13.71)
[2016-04-08 06:53] LABS: Osmolality,Calculated 273.7 MOS/KG (273-304)
[2016-04-08] MEDS: INSULIN LISPRO 100 UNIT/ML SUBCUT SCH ×4 (07:38→20:22)
[2016-04-08] MEDS: PANTOPRAZOLE 40 MG TABLET PO SCH (08:49)
[2016-04-08] MEDS: LINEZOLID INJ 600 MG in PREMIX 1 EACH IV SCH ×2 (08:49→20:23)
--- NOTE | 2016-04-08 11:06 | Hospitalist Progress Note ---
Assessment and Plan - Time spent with patient Time spent with patient: Greater than 30 minutes (1) Swelling of joint, ankle, left Status: Acute Assessment and plan: S/P aspiration yesterday. Continue abx. Appreciate ID assistance. Current Visit: Yes (2) NATHANAEL (acute kidney injury) Status: Acute Assessment and plan: Improving. Appreciate Nephrologys evaluation. Current Visit: Yes (3) UTI (urinary tract infection) Problem details: Posible GNR-UTI. Status: Acute Assessment and plan: Continue antibiotics. Current Visit: Yes Hospitalist: Subjective Interval history: No complaints, no overnight events. She states she would like to go home. Exam - Constitutional Vitals: Period Temp Pulse Resp BP Sys/Salcedo Pulse Ox Last 24 Hr 97.7 F-98.5 F 67-77 16-20 108-156/68-100 97-100 General appearance: no acute distress - Head Head exam: Present: normocephalic, atraumatic - Eye Eye exam: Present: EOMI Pupils: Present: NICCI - ENT ENT exam: Present: normal exam - Neck Neck exam: Present: normal inspection - Respiratory Respiratory exam: Present: clear to auscultation bilaterally. Absent: rhonchi, wheezes - Cardiovascular Cardiovascular exam: Present: regular rate and rhythm. Absent: gallop, rubs, systolic murmur - GI/Abdominal GI/Abdominal exam: Present: normal bowel sounds, soft. Absent: distended, firm , guarding, tenderness, rebound - Extremities Exam Extremities exam: Present: normal inspection. Absent: calf tenderness, edema Results - Labs CBC & BMP: 04/08/16 05:39 04/08/16 05:39 Specialty Discharge - Follow Up or Referrals Follow up with: North Dela Cruz Jr., MD [Physician] - 04/17/16 1:45 pm
--- NOTE | 2016-04-08 11:15 | Nephrology Progress Note ---
Nephrology - PN: Subj Interval history: Ms. Gautam is seen in follow-up of her acute renal failure. Her creatinine is improved now down to 2.2. She underwent left ankle arthrocentesis yesterday and cultures of that fluid are pending. Chest is clear and I think she can decrease her IV fluid rate. She's currently running at 150 mL/h she seems to be drinking an adequate amount. Exam (PN)-Nephrology - Vital Signs Vital signs: Period Temp Pulse Resp BP Sys/Salcedo Pulse Ox Last 24 Hr 97.7 F-98.5 F 67-77 16-20 108-156/68-100 97-100 - Lab 04/08/16 05:39 04/08/16 05:39 Most recent lab results Calcium 8.0 MG/DL (8.5-10.1) L 04/08/16 05:39 Assessment and Plan (1) ARF (acute renal failure) Status: Acute Current Visit: Yes (2) Diabetes Status: Acute Current Visit: Yes Qualifiers: Diabetes mellitus type: type 2 (3) UTI (urinary tract infection) Problem details: Posible GNR-UTI. Status: Acute Current Visit: Yes Specialty Discharge - Follow Up or Referrals Follow up with: North Dela Cruz Jr., MD [Physician] - 04/17/16 1:45 pm
[2016-04-08] MEDS: INSULIN GLARGINE 100 UNIT/ML SUBCUT SCH (20:22)
[2016-04-09] MEDS: PIPERACILLIN/TAZOBACTAM 3,375 MG in SODIUM CHLORIDE 0.9% 100 ML IV SCH ×2 (01:08→13:58)
[2016-04-09] MEDS: SODIUM CHLORIDE 0.45% 1,000 ML IV SCH (05:38)
[2016-04-09 06:26] LABS: Basophils % 0.3 % (0.0-0.8); Eosinophils # 0.4 10*3/uL (0.0-0.87); Eosinophils % 4.6 % (0.00-10.9); Hematocrit 29.1 VOL% (35.7-47.0); Hemoglobin 9.3 GM/DL (12.0-16.0); Immature Granulocytes % 0.4 %; Immature Granulocytes Absolute 0.04 #; Lymphocytes # 2.3 10*3/uL (1.4-4.0); Lymphocytes % 25.5 % (21.3-54.2); Mean Corpuscular Hemoglobin 28 PG (27-34); Mean Corpuscular Volume 86.4 FL (87-102); Monocytes % 10.9 % (1.7-12.7); Neutrophils # 5.3 10*3/uL (1.4-7.4); Neutrophils % 58.3 % (38.7-73.9); Platelet Count 368 10*3/uL (130-400); Red Blood Count 3.37 10*6/uL (3.8-5.5); Red Cell Distribution Width 12.7 % (9.3-17.3); White Blood Count 9.1 10*3/uL (4.5-13.71)
[2016-04-09 06:52] LABS: Calcium 7.9 MG/DL (8.5-10.1); Osmolality,Calculated 275.5 MOS/KG (273-304); Potassium 4.1 MMOL/L (3.5-5.1)
[2016-04-09] MEDS: INSULIN LISPRO 100 UNIT/ML SUBCUT SCH ×2 (07:30→13:30)
--- NOTE | 2016-04-09 08:45 | Nephrology Progress Note ---
Nephrology - PN: Subj Interval history: Ms. Gautam is seen in follow-up of her acute renal failure. She is improving and her creatinine is down to 2.1. She is eating and drinking well. I think she can do without her IV fluid and just use INT. She is anxious to be free of the IV if she can be. Her chest is clear she has no edema. We will discontinue her IV fluids and we will sign off. Exam (PN)-Nephrology - Vital Signs Vital signs: Period Temp Pulse Resp BP Sys/Salcedo Pulse Ox Last 24 Hr 96.1 F-98.8 F 68-75 16-18 109-145/64-89 100-100 - Lab 04/09/16 05:17 04/09/16 05:17 Most recent lab results Calcium 7.9 MG/DL (8.5-10.1) L 04/09/16 05:17 Assessment and Plan (1) ARF (acute renal failure) Status: Acute Current Visit: Yes (2) Diabetes Status: Acute Current Visit: Yes Qualifiers: Diabetes mellitus type: type 2 (3) UTI (urinary tract infection) Problem details: Posible GNR-UTI. Status: Acute Current Visit: Yes Specialty Discharge - Follow Up or Referrals Follow up with: North Dela Cruz Jr., MD [Physician] - 04/17/16 1:45 pm
[2016-04-09] MEDS: LINEZOLID INJ 600 MG in PREMIX 1 EACH IV SCH (08:59)
[2016-04-09] MEDS: PANTOPRAZOLE 40 MG TABLET PO SCH (09:24)
--- NOTE | 2016-04-09 11:18 | Infectious Disease Progress ---
Assessment and Plan (1) Diabetes Status: Acute Current Visit: Yes Qualifiers: Diabetes mellitus type: type 2 (2) Left ankle effusion Problem details: ankle joint pain, swelling and effusion on MRI Status: Acute Assessment and plan: Fluid studies (cell count and culture) negative for infection. Even if culture was negative because she was on antibiotics, the cell count should have been supportive, with much more WBCs. The effusion is likely reactive. Recommendations: Can discontinue antibiotics. Patient probably needs to not weight bear for some time for the ankle to heal. She would benefit from ortho f /u. I will sign off. Call again prn. Current Visit: Yes (3) ARF (acute renal failure) Status: Acute Assessment and plan: Probably from IV contrast dye and vancomycin. Imrpoved a bit. Current Visit: Yes Infectious Disease - PN: Subj Interval history: Patient feels relatively ok, wants to go home. Still some soreness to Lt ankle but wearing a splint. No fever. No N, V, D. Infectious Disease Exam (PN) - Constitutional Vitals: Temp Pulse Resp BP Pulse Ox 98.3 F 74 16 109/64 100 04/09/16 04:00 04/09/16 04:00 04/09/16 04:00 04/09/16 04:00 04/09/16 04:00 General appearance: no acute distress Exam: General appearance: no acute distress - Eye Eye exam: Present: EOMI. no icterus Pupils: Present: NICCI - ENT ENT exam: no oral exudates - GI/Abdominal GI/Abdominal exam: normal bowel sounds, soft, non-tender, no organomegaly or mass - Extremities Exam Extremities exam: no edema, Lt leg in brace - Skin Skin exam: no rash Results - Labs CBC & BMP: 04/09/16 05:17 04/09/16 05:17 Lab Results: I have reviewed the past 24 hour labs (WBC in synovial fluid only 50 with 63% segs; gram stain and culture of the fluid was negative) Specialty Discharge - Follow Up or Referrals Follow up with: North Dela Cruz Jr., MD [Physician] - 04/17/16 1:45 pm
[2016-04-09 12:41] VITALS: BP 143/83
--- NOTE | 2016-04-09 14:27 | Discharge Summary ---
Hospital Course - Hospital Course Hospital Course: Avascular Necrosis: Ms. Marquez was admitted for left ankle swelling. She was seen in consultation by Orthopedics. MRI of the ankle was suggestive of avascular necrosis. She was initially placed on Vancomycin by the admitting physician, however this was switched by myself to Zyvox. An aspiration was obtained. ID was consulted and determined that the aspiration did not indicate an infection. She will follow up as an outpatient with Orthopedics. UTI: E Coli ESBL resistant, that was sensitive to Zosyn. She received a full course. NATHANAEL: Secondary to vancomycin. This was discontinued, IV hydration was initiated and Nephrology was consulted. Her creatinine gayle from .7 to 2.5 but by discharge was downtrending at 2.1. She states she does not have a PCP, I encouraged her to obtain one and follow up with a PCP. - Time spent with patient Time with patient DS: Greater than 30 minutes Diagnosis - Discharge Diagnosis (1) Swelling of joint, ankle, left Status: Acute (2) NATHANAEL (acute kidney injury) Status: Acute (3) UTI (urinary tract infection) Status: Acute Specialty Discharge - Follow Up or Referrals Follow up with: North Dela Cruz Jr., MD [Physician] - 04/17/16 1:45 pm Discharge Plan - Discharge Data Disposition: Disch To Home/Self Care Condition at Discharge: Stable Discharge Diet: advance to your usual diet - Discharge Medications Continue metFORMIN [Glucophage] 500 mg PO BID - Follow Up or Referral Follow Up: North Dela Cruz Jr., MD [Physician] - 04/17/16 1:45 pm - Forms/Instructions Exam - Constitutional Vitals: Period Temp Pulse Resp BP Sys/Salcedo Pulse Ox Last 24 Hr 96.1 F-98.8 F 67-75 16-18 109-145/64-89 100-100 General appearance: normal weight, no acute distress - Head Head exam: Present: normal inspection, normocephalic, atraumatic - Eye Eye exam: Present: EOMI Pupils: Present: NICCI - ENT ENT exam: Present: normal exam - Neck Neck exam: Present: normal inspection - Respiratory Respiratory exam: Present: clear to auscultation bilaterally - Cardiovascular Cardiovascular exam: Present: regular rate and rhythm - GI/Abdominal GI/Abdominal exam: Present: normal bowel sounds - Extremities Exam Extremities exam: Present: normal inspection Discharge Results Procedures and tests throughout hospitalization: Pending Orders 04/07/16 13:25 Fungal Culture w/ Prep Routine Labs on day of discharge: Labs from last 24 hours 04/09/16 04/09/16 04/09/16 12:10 07:45 05:17 WBC RBC Hgb Hct MCV MCH MCHC RDW Plt Count MPV Neut % (Auto) Lymph % (Auto) Ramsey % (Auto) Eos % (Auto) Baso % (Auto) Neut # (Auto) Lymph # (Auto) Ramsey # (Auto) Eos # (Auto) Baso # (Auto) Immature Gran % Nucleated RBC % Immature Gran # Nucleated RBCs # Sodium 139 Potassium 4.1 Chloride 103 Carbon Dioxide 24 Anion Gap 16.1 H BUN 11 Creatinine 2.10 H GFR Calculation 30 BUN/Creatinine Ratio 5.00 L Glucose 106 POC Glucose 189 H 102 Calculated Osmolality 275.5 Calcium 7.9 L 04/09/16 04/08/16 04/08/16 05:17 19:36 15:06 WBC 9.1 RBC 3.37 L Hgb 9.3 L Hct 29.1 L MCV 86.4 L MCH 28 MCHC 32.0 RDW 12.7 Plt Count 368 MPV 10.0 Neut % (Auto) 58.3 Lymph % (Auto) 25.5 Ramsey % (Auto) 10.9 Eos % (Auto) 4.6 Baso % (Auto) 0.3 Neut # (Auto) 5.3 Lymph # (Auto) 2.3 Ramsey # (Auto) 1.0 H Eos # (Auto) 0.4 Baso # (Auto) 0.0 Immature Gran % 0.4 Nucleated RBC % 0.0 Immature Gran # 0.04 Nucleated RBCs # 0.00 Sodium Potassium Chloride Carbon Dioxide Anion Gap BUN Creatinine GFR Calculation BUN/Creatinine Ratio Glucose POC Glucose 183 H 124 H Calculated Osmolality Calcium DS: Provider Date of admission: 04/04/16 11:04 Primary care physician: Bonnie Granados MD Attending physician on admission: Tabatha Daley Consults: 04/04/16 11:31 Consult to Physician [CONS] Routine Comment: increased creatinine Consulting Provider: Paramjit Saleh Person Notified: Noy Date Notified: 04/04/16 Time Notified: 12:06 04/05/16 16:03 Consult to Physician [CONS] Routine Comment: Fever, concern for septic joint. Consulting Provider: Shantel Garcia Consult to Specialist Group: Infectious Disease When should Consulting Provider be notified: In am Consult Notification Comment: aware Discharging clinician: Stacey Fierro MD Expected date of discharge: 04/09/16
== END 2016-04-09 16:00 | disposition home or self-care (01) | DRG 565 ==
LOC: N.ED 10:21 → N.EDINP 10:21 → INTOOBSV 11:58 → OBSVTOIN 14:08 → N.5E 15:15
PROVIDERS: ADMIT Student in an Organized Health Care Education/Training Program; ATTEND Student in an Organized Health Care Education/Training Program

== ENCOUNTER 2016-09-15 22:12 | Inpatient (IN) ==
[2016-09-15] MEDS ORDERED: SULFAMETHOX/TRIMETHOPRIM 800-160 MG TABLET PO STA (22:37)
[2016-09-15] MEDS ORDERED: CLINDAMYCIN INJ 900 MG in PREMIX 1 EACH IV STA (22:37)
[2016-09-15] MEDS ORDERED: KETOROLAC 30 MG/1 ML VIAL IV STA (22:37)
--- NOTE | 2016-09-15 22:42 | Emergency Department Note ---
Arrival - Arrival Chief Complaint: Extremity Problem Stated Complaint: broken ankle ED Nursing Triage Note: C/C left ankle pain from fracture a year ago. Ankle is very swollen, large diabetic sore to outer ankle. Accucheck 265mg/dl in triage Mode of Arrival: Wheelchair Limitations: No Limitations Source: Patient Time Seen by Provider: 09/15/16 22:37 - History of Present Illness HPI Narrative: This 31-year-old female presents with complaints of 2 months of progressive growth of a large diabetic ulcer on the lateral aspect of the left ankle and foot. The patient states this clearly had onset after wearing a specific pair of boots. Patient complains of pain, erythema, and tenderness locally. She has had no serious purulent drainage today nor any chills or fever. Her main complaints have been pain swelling and growth of the ulcer. She is diabetic but she states she tries to keep her sugars under 200. On arrival here her Accu-Chek was 265. Onset (ago): month(s) (Patient presents 2 months since initiation of symptoms) Allergies/Adverse Reactions: Allergies Allergy/AdvReac Type Severity Reaction Status Date / Time No Known Allergies Allergy Verified 09/15/16 22:28 Home Medications: Home Medications Medication Instructions Recorded Confirmed Type metFORMIN [Glucophage] 500 mg PO BID 04/01/16 09/15/16 History Review of System - Review of System 12 point system: reviewed and no additional remarkable complaints except as stated - Review of System Constitutional: Present: as per HPI Skin: Present: as per HPI Endocrine: Present: as per HPI Medical,Surgical,& Family Hx - Medical History Endocrine: History of: Diabetes Mellitus (NIDDM) - Surgical History Orthopedic Surgeries: Surgical HX of;: Orthopedic Surgery (scope left ankle) - Social History Smoking Status: Former smoker Frequency of Alcohol Use: Occasionally Type of Drug Use: None Exam Physical Examination: GENERAL: Well developed, well nourished female in no acute distress. HEENT: Normocephalic. No trauma. Moist mucous membranes. EOMI. PERRLA. ENT NML NECK: Supple. No adenopathy. CARDIAC: Regular. No murmurs. Heart rate 110 CHEST: Clear to auscultation. No respiratory distress. O2 saturation 90% ABDOMEN: Soft. Nontender. Active bowel sounds. EXTREMITIES: No trauma. Normal ROM. No pedal edema. Silver dollar size left lateral ankle ulcer with minimal purulence but significant swelling, erythema, and tenderness. SKIN: No diaphoresis. No rash. Diabetic ulcer as above NEURO: Alert. Neuro intact no focal deficits. Vital Signs: Vital Signs Temperature 97.9 F 09/15/16 22:21 Pulse Rate 109 H 09/15/16 22:21 Respiratory Rate 16 09/15/16 22:21 Blood Pressure 105/72 09/15/16 22:21 O2 Sat by Pulse Oximetry 100 09/15/16 22:21 Course - Reevaluation(s) Reevaluation #1: Discussed with patient the need for hospitalization to stabilize the ulcer and prevent loss of foot. - Consultations Consultation #1: Discussed with hospitalist service who will admit for further evaluation treatment. Results - Labs CBC & BMP: 09/15/16 22:51 09/15/16 22:51 Labs: I have reviewed the laboratory and noted the elevated C-reactive protein and expected bump in sugars - Diagnostic Findings Procedure: X-ray: image reviewed by me, report reviewed by me (Left ankle Charcot joint no clearly visible ostia) Disposition Clinical Impression: Diabetic ulcer left ankle, Diabetes Case discussed with: patient Disposition: Still a Patient Condition: Guarded Time of Disposition: 23:57
[2016-09-15] MEDS ORDERED: KETOROLAC 30 MG/1 ML VIAL ONE (22:45)
[2016-09-15] MEDS ORDERED: CLINDAMYCIN INJ 50 ML IV ONE (22:45)
[2016-09-15] MEDS ORDERED: SULFAMETHOX/TRIMETHOPRIM 800-160 MG TABLET ONE (22:45)
[2016-09-15 23:10] LABS: Basophils # 0.1 10*3/uL (0.0-0.2); Basophils % 0.7 % (0.0-0.8); Eosinophils # 0.3 10*3/uL (0.0-0.87); Eosinophils % 3.8 % (0.00-10.9); Hematocrit 38.1 VOL% (35.7-47.0); Hemoglobin 12.6 GM/DL (12.0-16.0); Immature Granulocytes % 0.3 %; Immature Granulocytes Absolute 0.02 #; Lymphocytes # 2.6 10*3/uL (1.4-4.0); Lymphocytes % 37.9 % (21.3-54.2); Mean Corpuscular HGB Conc 33.1 GM/DL (32-36); Mean Corpuscular Hemoglobin 27 PG (27-34); Mean Corpuscular Volume 82.5 FL (87-102); Mean Platelet Volume 9.5 FL (9.6-12.0); Monocytes # 0.7 10*3/uL (0.11-0.8); Monocytes % 9.8 % (1.7-12.7); Neutrophils # 3.3 10*3/uL (1.4-7.4); Neutrophils % 47.5 % (38.7-73.9); Platelet Count 421 T/CUMM (130-400); Red Blood Count 4.62 MC/CUMM (3.8-5.5); White Blood Count 6.9 T/CUMM (4-12)
[2016-09-15 23:41] LABS: Albumin 3.2 G/DL (3.4-5.0); Bilirubin,Total 0.4 MG/DL (0.2-1.0); Calcium 8.7 MG/DL (8.5-10.1); Osmolality,Calculated 280.1 MOS/KG (273-304); Potassium 3.9 MMOL/L (3.5-5.1); Total Protein 8.5 G/DL (6.4-8.3)
[2016-09-16 00:13] LABS: Sedimentation Rate-Westergren 84 MM/HR (0-20)
[2016-09-16] MEDS ORDERED: DEXTROSE 50% 25 GM/50 ML VIAL IV PRN (01:09)
[2016-09-16] MEDS ORDERED: GLUCAGON 1 MG VIAL IM PRN (01:09)
[2016-09-16] MEDS ORDERED: ACETAMINOPHEN 325 MG TABLET PO PRN (01:09)
[2016-09-16] MEDS ORDERED: ONDANSETRON 4 MG/2 ML VIAL IV PRN (01:09)
[2016-09-16] MEDS ORDERED: BISACODYL 5 MG TABLET PO PRN (01:09)
--- NOTE | 2016-09-16 01:13 | Hospitalist History & Physical ---
Assessment and Plan - Time spent with patient Time spent discussing smoking cessation with patient: 3 to 10 minutes (1) Diabetic ulcer of left ankle Status: Acute Current Visit: Yes (2) Ankle osteomyelitis, left Status: Acute Current Visit: Yes Qualifiers: Osteomyelitis type: other acute Qualified Code(s): M86.172 - Other acute osteomyelitis, left ankle and foot (3) Uncontrolled diabetes mellitus Status: Acute Current Visit: Yes Qualifiers: Diabetes mellitus type: type 2 Diabetes mellitus complication status: with skin complications Diabetes mellitus complication detail: with foot ulcer Diabetes mellitus custodial insulin use: without predatory animal exterminator use Qualified Code( s): E11.621 - Type 2 diabetes mellitus with foot ulcer; E11.65 - Type 2 diabetes mellitus with hyperglycemia; L97.509 - Non-pressure chronic ulcer of other part of unspecified foot with unspecified severity (4) Hypertension Status: Acute Current Visit: Yes Qualifiers: Hypertension type: essential hypertension Qualified Code(s): I10 - Essential (primary) hypertension (5) Smoker Status: Acute Assessment and plan: Plan: Admit for IV antibiotics Blood culture 2 Consult surgery for debridement Consult museum educator Serial Accu-Cheks and sliding scale Current Visit: Yes History of Present Illness Chief complaint: Painful left lateral malleolar ulcer, pain, malodor History of present illness: Ms. Marquez is a 31 year old female with type 2 diabetes, hypertension, smoker who has had a nonhealing diabetic ulcer for about a month on her left lateral malleolus. Her ankle has been swelling considerably, she has had pain in the foot and ankle, 7 out of 10 at worst, partially relieved with pain medicine in the ER. Additionally, she has had purulent drainage and malodor from the wound and it appears necrotic. She has not seen anybody about it until tonight. Her blood sugars have been in the 200-300s, but she states she has been compliant with her Metformin. She reports having hypertension, but I do not see any antihypertensives on her home med list, and she cannot remember what she takes. She smokes a few cigarettes daily, drinks occasionally. She denies fever, chills, shortness of breath, chest pain, nausea or vomiting. She says she came to the ER tonight because of the fall order and that "she and her kids were tired of smelling foul odor." Home Medications Medication Instructions Recorded Confirmed Type metFORMIN [Glucophage] 500 mg PO BID 04/01/16 09/15/16 History Allergies Allergy/AdvReac Type Severity Reaction Status Date / Time No Known Allergies Allergy Verified 09/15/16 22:28 Medical,Surgical,& Family Hx - Medical History Cardio: History of: Hypertension Endocrine: History of: Diabetes Mellitus (NIDDM) Respiratory: No history of: COPD Gastrointestinal: No history of: GERD - Surgical History Orthopedic Surgeries: Surgical HX of;: Orthopedic Surgery (scope left ankle) - Family History Family History: Reports;: Family Diabetes, Family Hypertension - Social History Smoking Status: Current some day smoker Have you smoked in the last 12 months: Yes Time spent discussing smoking cessation with patient: 3 to 10 minutes Frequency of Alcohol Use: Occasionally Type of Drug Use: None Marital Status: Unknown Functional capacity: independent ambulation Review of systems: A 12 point review of systems is negative except as specified in the HPI Exam - Constitutional Vitals: Period Temp Pulse Resp BP Sys/Salcedo Pulse Ox Last 24 Hr 97.9 F-97.9 F 109-109 16-16 105-105/72-72 100 Exam: EXAM: CONSTITUTIONAL: non toxic, NAD HEENT: NC, AT, OP benign, NICCI, EOMI CV: RRR no m/g/r RESP: clear B/L, no w/r/r GI: abd soft, NT, ND, +bowel sounds INTEGUMENTARY: no rash EXTREMITIES: Considerable swelling of the left ankle with a large circular necrotic, purulent draining ulcer on the left lateral malleolus with malodor, pedal pulses intact NEURO: no focal deficits PSYCH: unremarkable, A/O x3 Results - Labs CBC & BMP: 09/15/16 22:51 09/15/16 22:51 Lab Results: I have reviewed the past 24 hour labs - Diagnostic Findings Procedure: X-ray: image reviewed by me, report reviewed by me
[2016-09-16] MEDS: SODIUM CHLORIDE 0.9% 1,000 ML IV SCH (02:14)
[2016-09-16] MEDS: PIPERACILLIN/TAZOBACTAM 3,375 MG in SODIUM CHLORIDE 0.9% 100 ML IV SCH ×3 (02:14→17:13)
[2016-09-16] MEDS: ENOXAPARIN 40 MG/0.4 ML SYRINGE SUBCUT SCH (02:16)
[2016-09-16 02:25] LABS: Basophils % 0.4 % (0.0-0.8); Eosinophils # 0.3 10*3/uL (0.0-0.87); Eosinophils % 3.4 % (0.00-10.9); Hematocrit 33.8 VOL% (35.7-47.0); Hemoglobin 11.3 GM/DL (12.0-16.0); Immature Granulocytes % 0.3 %; Immature Granulocytes Absolute 0.02 #; Lymphocytes # 2.9 10*3/uL (1.4-4.0); Mean Corpuscular HGB Conc 33.4 GM/DL (32-36); Mean Corpuscular Hemoglobin 27 PG (27-34); Mean Corpuscular Volume 81.8 FL (87-102); Mean Platelet Volume 9.4 FL (9.6-12.0); Monocytes # 0.8 10*3/uL (0.11-0.8); Monocytes % 10.6 % (1.7-12.7); Neutrophils # 3.6 10*3/uL (1.4-7.4); Neutrophils % 47.3 % (38.7-73.9); Platelet Count 393 T/CUMM (130-400); Red Blood Count 4.13 MC/CUMM (3.8-5.5); Red Cell Distribution Width 13.9 % (9.3-17.3); White Blood Count 7.6 T/CUMM (4-12)
[2016-09-16 02:56] LABS: Calcium 8.4 MG/DL (8.5-10.1); Magnesium 2.2 MG/DL (1.8-2.4); Osmolality,Calculated 277.1 MOS/KG (273-304); Potassium 3.7 MMOL/L (3.5-5.1)
[2016-09-16] MEDS: VANCOMYCIN INJ 1,000 MG in SODIUM CHLORIDE 0.9% 250 ML IV SCH ×2 (06:12→14:05)
--- NOTE | 2016-09-16 06:39 | XRay Report ---
Exam: XR ankle 3V LT, Date: 09/15/2016 10:38 PM Indication: Diabetic ulcer Comparison: April 01, 2016 Technical: AP lateral oblique image Findings: Extensive periosteal reaction along the distal tibia and the fibula. There is a fracture of the distal fibula present. Erosions are present along the fibula and the tibia. Heterotopic calcifications are present medially and laterally. There is near complete collapse and erosion of the talus present. There are some erosive changes of the superior aspect of the calcaneus at the subtalar joint. Impression: 1. Extensive soft tissue swelling with ulceration over the lateral malleolus area. 2. Extensive periosteal reaction and erosions of the tibia fibula with associated fractures and near complete erosion of the talus with erosive changes of the superior aspect of the calcaneus.. 3. Findings suggest osteomyelitis changes and Charcot joint changes Exam: XR foot 3V LT Date: 09/15/2016 10:38 PM Indication: Diabetic ulcer Comparison: None Technical AP lateral oblique image Findings: Juxta-articular osteophyte change present along the second through the fifth metatarsal head region. The phalanges are intact the metatarsals are intact. The tarsal bones reveal bony demineralization without fracture. The talus and calcaneus are described above with near complete erosion of the talus and the superior aspect of the calcaneus reveals erosive changes. Extensive soft tissue swelling at the ankle and superimposing the dorsal aspect of the foot. Impression: 1. Charcot joint and erosion changes and/or osteomyelitis at the distal tibia fibula talus and calcaneus PROCEDURE INTERPRETED AT [facility] [place] DEPARTMENT OF RADIOLOGY Final Report Signed by: Dr. James Cam
[2016-09-16] MEDS: INSULIN REGULAR 100 UNIT/ML SUBCUT SCH ×4 (06:56→21:03)
[2016-09-16] MEDS: metFORMIN 500 MG TABLET PO SCH ×2 (08:05→21:03)
[2016-09-16] MEDS: PANTOPRAZOLE 40 MG TABLET PO SCH (08:06)
--- NOTE | 2016-09-16 10:13 | Hospitalist Progress Note ---
Assessment and Plan (1) Ankle osteomyelitis, left Status: Acute Assessment and plan: Impression: 1. Type II DM with foot ulcer and underlying osteomyelitis Plan: Surgery has been consulted. Antibiotics have been ordered. Will await surgery recommendations. This note was completed using [employer] voice recognition software. There may be stone and plate preparer apprentice errors as a result. Current Visit: Yes Qualifiers: Osteomyelitis type: other acute Qualified Code(s): M86.172 - Other acute osteomyelitis, left ankle and foot Hospitalist: Subjective Interval history: Follow-up type II DM with osteomyelitis of the left ankle. The patient reports pain in the left lateral malleolus. She says that she has been wearing a walking boot, and that it has apparently kept the skin ulcer from healing. She has been diabetic for the past 10 years or so. She is apparently not on insulin, and says that she never has been Exam - Constitutional Vitals: Period Temp Pulse Resp BP Sys/Salcedo Pulse Ox Last 24 Hr 96 F-97.9 F 80-109 16-18 105-123/47-72 97-100 Vital signs are noted above. Examination of the left ankle reveals some impressive swelling over the lateral malleolus with some eschar on top of the wound and some tenderness and induration around the periphery. Results - Labs CBC & BMP: 09/16/16 02:16 09/16/16 02:16 Lab Results: I have reviewed the past 24 hour labs - Diagnostic Findings Procedure: X-ray: image reviewed by me (Osteomyelitis with soft tissue swelling) Quality Measures - Stroke Symptom Onset Unknown: No
--- NOTE | 2016-09-16 16:34 | General Surgery Consult Note ---
Assessment and Plan - Time spent with patient Time spent with patient: Greater than 30 minutes (1) Ankle osteomyelitis, left Status: Acute Assessment and plan: Ms. Higgins is a 31-year-old female with uncontrolled diabetes , history of noncompliance admitted by the hospitalist on 09/15/2016 with a swollen painful left ankle. This problem has been going on for approximately a year with patient noncompliant with follow-up. She now has a chronic open lateral malleolus ulcer with edema and osteomyelitis with extensive erosion and fractures of the left ankle. Dr. Dela Cruz has seen the patient before and feel it is more appropriate for orthopedics to evaluate this patient. Dr. Janae LUGO will be happy to follow along and will help if needed. We will go ahead and let the patient eat supper, make her n.p.o. after midnight, and consult Dr. Dela Cruz and Dr. Khalil from infectious diseases for in the morning. Dr. Janae LUGO will see and examined patient. Current Visit: Yes Qualifiers: Osteomyelitis type: other acute Qualified Code(s): M86.172 - Other acute osteomyelitis, left ankle and foot (2) Diabetic ulcer of left ankle Status: Acute Current Visit: Yes (3) Smoker Status: Acute Current Visit: Yes (4) Uncontrolled diabetes mellitus Status: Acute Current Visit: Yes Qualifiers: Diabetes mellitus type: type 2 Diabetes mellitus complication status: with skin complications Diabetes mellitus complication detail: with foot ulcer Diabetes mellitus jail insulin use: without long term care administrator use Qualified Code( s): E11.621 - Type 2 diabetes mellitus with foot ulcer; E11.65 - Type 2 diabetes mellitus with hyperglycemia; L97.509 - Non-pressure chronic ulcer of other part of unspecified foot with unspecified severity (5) Avascular necrosis Status: Acute Current Visit: No (6) Diabetes Status: Acute Current Visit: No Qualifiers: Diabetes mellitus type: type 2 (7) Hyperglycemia Status: Acute Current Visit: No (8) Non-compliant behavior Status: Acute Current Visit: Yes History of Present Illness Chief complaint: Left ankle pain History of present illness: Ms. Marquez is a 31 year old female with history of uncontrolled diabetes, hypertension, tobacco abuse, and noncompliance admitted by the hospitalist on 09/15/2016 with an acute osteomyelitis and diabetic ulcer of the left ankle. Patient has been started on antibiotics and pain control. Dr. Janae LUGO was consulted for evaluation. Patient states her ankle has been hurting for approximately 2 months. She is gotten to the point where she cannot walk on it for the last week. She denies fevers, chills, or malaise. She admits to being noncompliant with her diabetes medications. Upon chart review patient was admitted in March with ankle pain and swelling. At that time she stated that this is been going on since September 2015. This started as an ankle inversion sprain. She was seen by Dr. Dela Cruz from orthopedics, nephrology , and infectious diseases. She was diagnosed with avascular necrosis per MRI of the ankle. She received an aspiration of the ankle which did not indicate an infection. Patient was given an ankle boot and told to follow-up with orthopedics. Patient states she missed that appointment and never rescheduled. She has been wearing the boot this whole time and feels that the boot rubbed her ankle raw. Upon exam patient has a swollen bulbous left lateral malleolus with an open chronic looking wound. It is not draining. This is very tender to the touch and she has some swelling around the whole ankle. An x-ray of the ankle shows extensive soft tissue swelling with ulceration of the lateral malleolus, Extensive periosteal reaction and erosions of the tibia fibula with associated fractures and near completely erosion of the talus with erosive changes of the superior aspect of the calcaneus. Findings suggest osteomyelitis and Charcot joint changes. Home Medications Medication Instructions Recorded Confirmed Type metFORMIN [Glucophage] 500 mg PO BID 04/01/16 09/16/16 History Allergies Allergy/AdvReac Type Severity Reaction Status Date / Time No Known Allergies Allergy Verified 09/15/16 22:28 Medical,Surgical,& Family Hx - Medical History Cardio: History of: Hypertension Endocrine: History of: Diabetes Mellitus (NIDDM) Respiratory: No history of: COPD Gastrointestinal: No history of: GERD - Surgical History Thoracic Surgeries: Patient denies;: Organ Transplant Abdominal Surgeries: Patient denies: Abdominal Surgery Reproductive Surgeries: Surgical HX of;: Section Orthopedic Surgeries: Surgical HX of;: Orthopedic Surgery (scope left ankle) - Family History Family History: Reports;: Family Diabetes, Family Hypertension - Social History Smoking Status: Current some day smoker Frequency of Alcohol Use: Occasionally Type of Drug Use: None Marital Status: Single Lives With:: Alone Functional capacity: independent ambulation Review of systems: A complete 10 system review of systems was obtained and pertinent positives and negatives per HPI Exam - Constitutional Vitals: Period Temp Pulse Resp BP Sys/Salcedo Pulse Ox Last 24 Hr 96 F-98.9 F 75-109 16-18 98-123/47-72 97-100 Exam: 31-year-old female, mild distress, alert and oriented Chest clear CV regular rate and rhythm Abdomen soft and nontender Extremities left ankle with edema, no cellulitis, chronic open wound to lateral malleolus approximately 5 x 5 cm, no active drainage Quality Measures - Stroke Symptom Onset Unknown: No Results - Labs CBC & BMP: 09/16/16 02:16 09/16/16 02:16 Lab Results: I have reviewed the past 24 hour labs - Diagnostic Findings Procedure: X-ray: report reviewed by me (X-rays of the left ankle show extensive soft tissue swelling with ulceration over the lateral malleolus, extensive periosteal reaction and erosions of the tibia-fibula with associated fractures and near completely erosion of the talus with erosive changes of the superior aspect of the calcaneus, findings suggest osteomyelitis and Charcot joint.)
--- NOTE | 2016-09-16 16:37 | General Surgery Consult Note ---
Assessment and Plan - Time spent with patient Time spent with patient: Greater than 30 minutes (1) Diabetic ulcer of left ankle Status: Acute Assessment and plan: The ulcer is clean based and granulating. It appears chronic. I was under the impression that this had dated back to her original fracture but apparently this is only developed in the last couple of months. This may be a pressure ulcer from the particular orthotic device. This all may be a superficial process. I cannot really tell if this communicates with the bony destruction at her ankle. I agree with evaluation by orthopedic surgery. I do not see any specific debridement that needs to be done of her ulcer. 09/16: The patient has an ulcer that is clean based with no purulence or drainage. It is unclear if it communicates with a deeper process in the ankle. I do not see anything to debride at this time. We will consult orthopedic surgery. Current Visit: Yes History of Present Illness Chief complaint: Ulcer left ankle History of present illness: Ms. Marquez is a 31 year old female Who has had ulceration of her left lateral ankle for quite some time and was actually admitted back in March for the same problem and was seen by orthopedic surgery. She had an MRI at that time which showed destruction and osteonecrosis of her talus. She is not really having pain. She is not having fever or chills. Home Medications Medication Instructions Recorded Confirmed Type metFORMIN [Glucophage] 500 mg PO BID 04/01/16 09/16/16 History Allergies Allergy/AdvReac Type Severity Reaction Status Date / Time No Known Allergies Allergy Verified 09/15/16 22:28 Medical,Surgical,& Family Hx - Medical History Cardio: History of: Hypertension Endocrine: History of: Diabetes Mellitus (NIDDM) Respiratory: No history of: COPD Gastrointestinal: No history of: GERD - Surgical History Thoracic Surgeries: Patient denies;: Organ Transplant Abdominal Surgeries: Patient denies: Abdominal Surgery Reproductive Surgeries: Surgical HX of;: Section Orthopedic Surgeries: Surgical HX of;: Orthopedic Surgery (scope left ankle) - Family History Family History: Reports;: Family Diabetes, Family Hypertension - Social History Smoking Status: Current some day smoker Frequency of Alcohol Use: Occasionally Type of Drug Use: None - Constitutional Constitutional: Absent: chills, fever(s) - Respiratory Respiratory: Absent: dyspnea Exam - Constitutional Vitals: Period Temp Pulse Resp BP Sys/Salcedo Pulse Ox Last 24 Hr 96 F-98.9 F 75-109 16-18 98-123/47-72 97-100 General appearance: no acute distress - Eye Eye exam: Absent: scleral icterus - ENT Mouth exam: Present: normal voice - Respiratory Respiratory exam: Absent: accessory muscle use - Extremities Exam Extremities exam: Present: other (There is about a 3 x 4 cm ulcerated granulated chronic appearing ulcer of the left lateral malleolus. She has extensive deformity of her left ankle this all appears chronic. There is no cellulitis or purulent drainage.). Absent: edema Quality Measures - Stroke Symptom Onset Unknown: No Results - Labs CBC & BMP: 09/16/16 02:16 09/16/16 02:16 Lab Results: I have reviewed the past 24 hour labs
[2016-09-17] MEDS: PIPERACILLIN/TAZOBACTAM 3,375 MG in SODIUM CHLORIDE 0.9% 100 ML IV SCH ×3 (01:32→17:43)
[2016-09-17] MEDS: MORPHINE 2 MG/1 ML SYRINGE IV PRN ×2 (04:10→08:48)
[2016-09-17] MEDS: VANCOMYCIN INJ 1,000 MG in SODIUM CHLORIDE 0.9% 250 ML IV SCH (05:58)
[2016-09-17] MEDS: SODIUM CHLORIDE 0.9% 1,000 ML IV SCH ×3 (05:58→17:44)
[2016-09-17] MEDS: INSULIN REGULAR 100 UNIT/ML SUBCUT SCH ×4 (08:53→21:15)
--- NOTE | 2016-09-17 09:19 | Hospitalist Progress Note ---
Assessment and Plan (1) Ankle osteomyelitis, left Status: Acute Assessment and plan: Impression: 1. Type II DM with foot ulcer and underlying osteomyelitis Plan: Continue antibiotics. Surgery later today. This note was completed using [employer] voice recognition software. There may be boil off worker errors as a result. Current Visit: Yes Qualifiers: Osteomyelitis type: other acute Qualified Code(s): M86.172 - Other acute osteomyelitis, left ankle and foot Hospitalist: Subjective Interval history: Follow-up diabetic foot ulcer. The patient does not remember her conversation with surgery yesterday. She is n.p.o., so she is apparently scheduled for something, but does not know what type of procedure she is going to have. Exam - Constitutional Vitals: Period Temp Pulse Resp BP Sys/Salcedo Pulse Ox Last 24 Hr 97.5 F-98.9 F 75-86 16-20 97-124/56-77 96-100 Vital signs are noted above. She is afebrile. Heart is regular with no murmur. Lungs are clear with no wheezes. She is awake and alert. Foot is bandaged. Results - Labs CBC & BMP: 09/16/16 02:16 09/16/16 02:16 Quality Measures - Stroke Symptom Onset Unknown: No
--- NOTE | 2016-09-17 11:08 | Infectious Disease Consult ---
Assessment and Plan (1) Ankle osteomyelitis, left Status: Acute Assessment and plan: This is similar to this is associated with significant bony destruction of that left ankle. Infection may be polymicrobial including MRSA. Recommendations: I agree with empiric vancomycin and Zosyn. Renal function will have to be monitored very closely on vancomycin and I am on consulting pharmacy to assist with drug level monitoring. Goal vancomycin trough is 15- 20. She will probably need surgical intervention but I am not sure if the foot is salvageable. Will await input by surgery. Thank you very much for the consult. Will follow. Current Visit: Yes Qualifiers: Osteomyelitis type: other acute Qualified Code(s): M86.172 - Other acute osteomyelitis, left ankle and foot (2) Diabetic ulcer of left ankle Status: Acute Current Visit: Yes (3) Uncontrolled diabetes mellitus Status: Acute Assessment and plan: A1c is almost 10%. Current Visit: Yes Qualifiers: Diabetes mellitus type: type 2 Diabetes mellitus complication status: with skin complications Diabetes mellitus complication detail: with foot ulcer Diabetes mellitus detention insulin use: without intermission coordinator use Qualified Code( s): E11.621 - Type 2 diabetes mellitus with foot ulcer; E11.65 - Type 2 diabetes mellitus with hyperglycemia; L97.509 - Non-pressure chronic ulcer of other part of unspecified foot with unspecified severity History of Present Illness Chief complaint: Left ankle osteomyelitis History of present illness: Ms. Marquez is a 31 year old female who is here this past March with swelling of the left ankle. She had a joint effusion but when it was aspirated it was found to be sterile and the white cell count is not supportive of a septic joint. It was at the infusion was reactive and she ultimately was sent home without antibiotics. The patient says she was wearing a boot since then and about a month ago she developed an ulcer over the lateral malleolus because of the boot, she says. She never sought medical attention from March until now because also got progressively worse despite the home remedy she was using. She denies fever or other constitutional symptoms. She is diabetic and admits that it is not controlled. Home Medications Medication Instructions Recorded Confirmed Type metFORMIN [Glucophage] 500 mg PO BID 04/01/16 09/16/16 History Allergies Allergy/AdvReac Type Severity Reaction Status Date / Time No Known Allergies Allergy Verified 09/15/16 22:28 12 point system: reviewed and no additional remarkable complaints except as stated (Per HPI) Medical,Surgical,& Family Hx - Medical History Cardio: History of: Hypertension Endocrine: History of: Diabetes Mellitus (NIDDM) Respiratory: No history of: COPD Gastrointestinal: No history of: GERD - Surgical History Thoracic Surgeries: Patient denies;: Organ Transplant Abdominal Surgeries: Patient denies: Abdominal Surgery Reproductive Surgeries: Surgical HX of;: Section Orthopedic Surgeries: Surgical HX of;: Orthopedic Surgery (scope left ankle) - Family History Family History: Reports;: Family Diabetes, Family Hypertension - Social History Smoking Status: Current some day smoker Frequency of Alcohol Use: Occasionally Type of Drug Use: None Infectious Disease Exam H&P - Constitutional Vitals: Vital Signs Temp Pulse Resp BP Pulse Ox 97.6 F 75 18 111/71 98 09/17/16 08:00 09/17/16 08:00 09/17/16 08:00 09/17/16 08:00 09/17/16 08:00 Intake and Output 09/16/16 09/17/16 09/17/16 23:59 07:59 15:59 Intake Total 775 / 775 1100 / 1100 250 / 250 Output Total 475 / 475 Balance 300 / 300 1100 / 1100 250 / 250 Intake: IV 350 / 350 1100 / 1100 250 / 250 Zosyn 3,375 mg In Ns 100 100 / 100 100 / 100 ml @ 25 mls/hr IV Q8H CLARA Rx#:[id number] Ns 1,000 ml @ 125 mls/hr 1000 / 1000 IV .Q8H CLARA Rx#: [id number] Vancomycin Inj 1,000 mg 250 / 250 250 / 250 In Ns 250 ml @ 250 mls/hr IV Q12H CLARA Rx#: [id number] Oral 425 / 425 Output: Urine 475 / 475 Stool 0 / 0 Other: Emesis 0 0 # Voids 650 # Bowel Movements 1 Exam: General: Patient relatively comfortable HEENT: Mucous membranes pink and moist, anicteric acyanotic, NICCI, no oropharyngeal exudates Neck: Supple, no thyroid gland enlargement Respiratory system: Breath sounds vesicular, no crepitations or wheezes Cardiovascular: Normal S1 and S2, no murmurs appreciated Abdomen: Normal bowel sounds, soft nontender throughout, no organomegaly or mass Genitourinary: No suprapubic pain or bladder distention Extremities: Left ankle is extremely large/swollen and there is a large ulcer over the lateral malleolus, it is about 1-1/2 inches wide, mostly pink with a some sloughy material interspersed. The ankle is quite floppy as if the bones have been fractured. Skin: No rash Reports - Labs CBC & BMP: 09/16/16 02:16 09/16/16 02:16 Labs: Laboratory Results - last 24 hr 09/16/16 09/16/16 09/16/16 11:19 16:38 19:51 POC Glucose 180 H 155 H 269 H 09/17/16 07:20 POC Glucose 212 H - Reports Microbiology: Microbiology 09/16/16 02:16 Blood Culture - Preliminary Blood No growth at 1 day 09/16/16 02:16 Blood Culture - Preliminary Blood No growth at 1 day - Diagnostic Findings Procedure: X-ray: report reviewed by me, image reviewed by me (Foot and ankle x- ray images noted with bony destruction and osteomyelitis changes)
[2016-09-17] MEDS: metFORMIN 500 MG TABLET PO SCH ×2 (12:26→21:17)
[2016-09-17] MEDS: PANTOPRAZOLE 40 MG TABLET PO SCH (12:26)
[2016-09-17] MEDS: ENOXAPARIN 40 MG/0.4 ML SYRINGE SUBCUT SCH (12:26)
--- NOTE | 2016-09-17 13:44 | General Surgery Progress Note ---
Assessment and Plan - Time spent with patient Time spent with patient: Less than 30 minutes (1) Diabetic ulcer of left ankle Status: Acute Assessment and plan: The ulcer is clean based and granulating. It appears chronic. I was under the impression that this had dated back to her original fracture but apparently this is only developed in the last couple of months. This may be a pressure ulcer from the particular orthotic device. This all may be a superficial process. I cannot really tell if this communicates with the bony destruction at her ankle. I agree with evaluation by orthopedic surgery. I do not see any specific debridement that needs to be done of her ulcer. Current Visit: Yes Subjective Patient reports: Present: feels better. Absent: still having pain, nausea, vomiting, fever Exam - Constitutional Vitals: Period Temp Pulse Resp BP Sys/Salcedo Pulse Ox Last 24 Hr 97.5 F-98.9 F 72-86 16-20 96-124/57-77 96-100 General appearance: no acute distress - ENT Mouth exam: Present: normal voice - Respiratory Respiratory exam: Absent: accessory muscle use - Extremities Exam Extremities exam: Present: other (There is severe deformity of the ankle. There is extensive swelling at the ankle. The ulcer itself is clean based. I cannot definitively appreciate whether there is extension of this ulcer into the joint space or involving the bone. There is certainly no visible bone within the ulcer. This seems rather superficial. There is no purulence and the ulcer there is no visible cellulitis ). Absent: edema Results - Labs CBC & BMP: 09/16/16 02:16 09/16/16 02:16 Quality Measures - Stroke Symptom Onset Unknown: No
--- NOTE | 2016-09-17 14:33 | Orthopedic Consult Note ---
History of Present Illness Chief complaint: left ankle swelling, deformity and ulceration History of present illness: Ms. Marquez is a 31 year old female who I saw in March. She had had an injury last summer to her left ankle. MRI at that time showed that she had the beginning of either talar osteonecrosis or possibly Charcot arthropathy. The patient is a poorly controlled diabetic. In March she had sugars in the 400s. The patient did not return to her follow-up appointment and has not [facility]. Patient states that she has been using her cast boot. She developed ulceration approximately 2 months ago. She states has been roughly the same size. She states it has been just draining serosanguineous fluid. She denies any purulence. She is a smoker. She states that she can quit. Home Medications Medication Instructions Recorded Confirmed Type metFORMIN [Glucophage] 500 mg PO BID 04/01/16 09/16/16 History Allergies Allergy/AdvReac Type Severity Reaction Status Date / Time No Known Allergies Allergy Verified 09/15/16 22:28 12 point system: reviewed and no additional remarkable complaints except as stated Medical,Surgical,& Family Hx - Medical History Cardio: History of: Hypertension Endocrine: History of: Diabetes Mellitus (NIDDM) Respiratory: No history of: COPD Gastrointestinal: No history of: GERD - Surgical History Thoracic Surgeries: Patient denies;: Organ Transplant Abdominal Surgeries: Patient denies: Abdominal Surgery Reproductive Surgeries: Surgical HX of;: Section Orthopedic Surgeries: Surgical HX of;: Orthopedic Surgery (scope left ankle) - Family History Family History: Reports;: Family Diabetes, Family Hypertension - Social History Smoking Status: Current some day smoker Frequency of Alcohol Use: Occasionally Type of Drug Use: None Exam - Constitutional Vitals: Period Temp Pulse Resp BP Sys/Salcedo Pulse Ox Last 24 Hr 97.5 F-98.9 F 72-86 16-20 96-128/57-77 96-100 Exam left lower extremity shows swelling and shortening of her limb. She is swollen and has varus valgus instability at her ankle. She has roughly a 3 cm diameter ulceration which is clean over her lateral malleolus. Sensation is diminished. Is a 2+ dorsalis pedis pulse. She can flex extend her toes. Her ankle and hindfoot is not painful to deep palpation. Radiographs foot and ankle were reviewed from yesterday. They show interval fragmentation and complete loss of her talar body consistent with her history of avascular necrosis. She also has fractures of her medial malleolus and lateral malleolus with associated callus formation. The patient has an elevated sedimentation rate and C-reactive protein. Impression: Osteonecrosis talus/Charcot arthropathy ankle. Most likely superficial ulceration secondary to her deformity, peripheral neuropathy. Noncompliance Plan: I am not sure that this is an infectious process. The patient has had interval fragmentation of her talar body as a consequence of her osteonecrosis. She has developed associated medial and lateral malleoli fractures. I suspect her ulceration is secondary to her deformity, instability, peripheral neuropathy and pressure phenomena from her brace. Her elevated sedimentation and C-reactive protein are concerning. If she does not have osteomyelitis, limb salvage is a possibility with a tibiocalcaneal fusion after healing of her pressure sore. I have discussed that she needs to be compliant with her diabetes and stop using nicotine. If this is a deep infectious process, then a below knee amputation needs to be considered. I have ordered an MRI with and without contrast. Results - Labs CBC & BMP: 09/16/16 02:16 09/16/16 02:16
[2016-09-17] MEDS: VANCOMYCIN INJ 750 MG in SODIUM CHLORIDE 0.9% 250 ML IV SCH (15:57)
[2016-09-18] MEDS: PIPERACILLIN/TAZOBACTAM 3,375 MG in SODIUM CHLORIDE 0.9% 100 ML IV SCH ×2 (00:38→08:29)
[2016-09-18] MEDS: VANCOMYCIN INJ 750 MG in SODIUM CHLORIDE 0.9% 250 ML IV SCH ×2 (03:20→16:13)
[2016-09-18] MEDS: SODIUM CHLORIDE 0.9% 1,000 ML IV SCH ×2 (06:37→23:45)
[2016-09-18] MEDS: INSULIN REGULAR 100 UNIT/ML SUBCUT SCH ×4 (08:22→21:23)
[2016-09-18] MEDS: ENOXAPARIN 40 MG/0.4 ML SYRINGE SUBCUT SCH (08:23)
[2016-09-18] MEDS: metFORMIN 500 MG TABLET PO SCH ×2 (08:24→20:19)
[2016-09-18] MEDS: PANTOPRAZOLE 40 MG TABLET PO SCH (08:24)
--- NOTE | 2016-09-18 09:50 | Hospitalist Progress Note ---
Assessment and Plan (1) Ankle osteomyelitis, left Status: Acute Assessment and plan: Impression: 1. Type II DM with foot ulcer and underlying osteomyelitis Plan: Continue antibiotics. MRI later today. This note was completed using [employer] voice recognition software. There may be telephone betting clerk errors as a result. Current Visit: Yes Qualifiers: Osteomyelitis type: other acute Qualified Code(s): M86.172 - Other acute osteomyelitis, left ankle and foot Hospitalist: Subjective Interval history: Follow-up type II DM with diabetic foot and ankle ulcer. The patient's oral intake is good. She is scheduled for MRI of the left ankle today. We are waiting on opinions from the various consultants regarding next steps. Exam - Constitutional Vitals: Period Temp Pulse Resp BP Sys/Salcedo Pulse Ox Last 24 Hr 97.3 F-98.5 F 68-78 18-22 96-146/58-85 95-98 Ankle is bandaged. She is awake and alert. Results - Labs CBC & BMP: 09/16/16 02:16 09/16/16 02:16 Quality Measures - Stroke Symptom Onset Unknown: No
--- NOTE | 2016-09-18 09:58 | Physician Query Form ---
CLICK EDIT DOCUMENT TO SELECT QUERY ANSWER --> OK --> SIGN Morenita Iglesias RN, CCDS Certified Clinical Environmental Consultant W) [phone] (f) [phone] [email or web address]: Make your selection(s) from the choices in EACH section by typing an "x" and enter comments in the comment section. Please use your independent medical judgment in providing your response. This request does not imply that any particular answer is desired or expected. CLINICAL INDICATORS: (Providers should not edit this section) The medical record indicates that the patient was admitted with DM, "Osteonecrosis talus/Charcot arthropathy ankle" AND she has DM. Based on the above, could you clarify the appropriate diagnosis, if significant , that supports the above abnormalities and additional evaluation, monitoring, and/or treatment rendered: (x ) osteonecrosis and Charcot arthropathy is a complication of the DM ( ) osteonecrosis and Charcot arthropathy is not a complication of the DM ( ) Other, please specify: ( ) Clinically unable to determine COMMENTS: PLEASE ALSO DOCUMENT RESPONSE IN PROGRESS NOTES AND/OR DISCHARGE SUMMARY Use of terms such as suspected, likely, or probable (associated with a specific diagnosis that is being evaluated, monitored, or treated as if it exists) are acceptable and can be restated in the discharge summary if not ruled out. MTDD
--- NOTE | 2016-09-18 13:19 | General Surgery Progress Note ---
Assessment and Plan (1) Diabetic ulcer of left ankle Status: Acute Assessment and plan: The ulcer is clean based and granulating. It appears chronic. I was under the impression that this had dated back to her original fracture but apparently this is only developed in the last couple of months. This may be a pressure ulcer from the particular orthotic device. This all may be a superficial process. I cannot really tell if this communicates with the bony destruction at her ankle. I agree with evaluation by orthopedic surgery. I do not see any specific debridement that needs to be done of her ulcer. 09/16: The patient has an ulcer that is clean based with no purulence or drainage. It is unclear if it communicates with a deeper process in the ankle. I do not see anything to debride at this time. We will consult orthopedic surgery. 09/18: The case was discussed at length with Dr. Dela Cruz. It is not clear that this is infectious. It is not clear that the ulcer communicates at all with the process which is chronic in her ankle where she has significant bony destruction and degeneration. The ulcer seems superficial on examination. He is probably going to do a bone biopsy and check for infection in the ankle space. She has an MRI pending. I do not see any specific treatment other than conservative local treatment that is needed for the ulcer. I suspect the etiology of the ulcer is from trauma from her wearing a boot with her deformed ankle rubbing inside the boot. Current Visit: Yes Subjective Patient reports: Present: feels better. Absent: still having pain, fever Exam - Constitutional Vitals: Period Temp Pulse Resp BP Sys/Salcedo Pulse Ox Last 24 Hr 97.3 F-98.5 F 68-78 18-22 104-146/68-85 95-98 General appearance: no acute distress - Respiratory Respiratory exam: Absent: accessory muscle use - Extremities Exam Extremities exam: Present: edema, other (Ulcerative unchanged) Results - Labs CBC & BMP: 09/16/16 02:16 09/16/16 02:16 Lab Results: I have reviewed the past 24 hour labs - Diagnostic Findings Procedure: MRI: pending Quality Measures - Stroke Symptom Onset Unknown: No
--- NOTE | 2016-09-18 16:01 | Magnetic Resonance Report ---
History: Osteonecrosis of the talus. Charcot arthropathy. Diabetic ulcer left ankle Date: 09/18/2016 Study: MRI left ankle with and without IV contrast Comparison exam: Similar study April 02, 2016 MRI of the left ankle was performed before and after IV contrast on the 1.5 Whitney magnet, to include proton density, STIR, and pre and post IV contrast T1-weighted sequences. There has been progressive worsening of the arthritic process since the previous study. The talus has largely been resorbed. There is a small residual 22 mm fragment of the anterior process of the talus at the talonavicular joint. There are some smaller talar fragment loose bodies at the tibiotalar joint space. There is erosion and fracture of the articular surface of the distal tibia, with no normal distal articular surface remaining. There is comminuted fracture and erosion at the fracture site involving the distal metaphysis and epiphysis of the fibula which has occurred since the previous study. There is also erosion and fragmentation of the entire superior margin of the calcaneus with some moderate underlying calcaneal marrow edema. There is prominent synovial thickening of the tibiotalar joint with moderate underlying joint effusion. There is prominent diffuse soft tissue edema about the ankle and hindfoot. The Achilles tendon is intact. The plantar aponeurosis is intact. Impression: Progression of the presumed Charcot arthropathy of the ankle and hindfoot with near complete resorption of the talus and fracture fragmentation and resorption of the distal tibia and fibula as well as portions of the calcaneus of a progressive nature on the current study. Superimposed septic arthritis cannot be excluded; consider tissue and/or fluid sampling PROCEDURE INTERPRETED AT [facility] DEPARTMENT OF RADIOLOGY Final Report Signed by: Dr. Aan Laura Smith
--- NOTE | 2016-09-18 16:58 | Infectious Disease Progress ---
Assessment and Plan (1) Ankle osteomyelitis, left Status: Acute Assessment and plan: Discussed with Dr. Dela Cruz - could be osteonecrosis and Charcot's deformity. Cannot rule out infection however. Recommendations: Bone biopsy for culture being done by Dr. Dela Cruz tomorrow. He may also attempt sampling of joint fluid for analysis. Because this is a chronic problem, antibiotic therapy is not urgent, therefore I am going to hold antibiotics until after we get the tissue samples tomorrow for culture. Current Visit: Yes Qualifiers: Osteomyelitis type: other acute Qualified Code(s): M86.172 - Other acute osteomyelitis, left ankle and foot (2) Diabetic ulcer of left ankle Status: Acute Current Visit: Yes (3) Uncontrolled diabetes mellitus Status: Acute Assessment and plan: A1c is almost 10%. Current Visit: Yes Qualifiers: Diabetes mellitus type: type 2 Diabetes mellitus complication status: with skin complications Diabetes mellitus complication detail: with foot ulcer Diabetes mellitus meterman insulin use: without meterman use Qualified Code( s): E11.621 - Type 2 diabetes mellitus with foot ulcer; E11.65 - Type 2 diabetes mellitus with hyperglycemia; L97.509 - Non-pressure chronic ulcer of other part of unspecified foot with unspecified severity Infectious Disease - PN: Subj Interval history: Patient without any complaints, afebrile. Tolerating antibiotics without nausea vomiting or diarrhea. Infectious Disease Exam (PN) - Constitutional Vitals: Temp Pulse Resp BP Pulse Ox 98.6 F 76 20 112/73 98 09/18/16 16:00 09/18/16 16:00 09/18/16 16:51 09/18/16 16:00 09/18/16 16:00 General appearance: no acute distress Exam: General appearance: no acute distress - Eye Eye exam: Present: EOMI. no icterus Pupils: Present: NICCI - ENT ENT exam: no oral exudates - Respiratory Respiratory exam: vesicular BS, no crepitations or wheezes - Cardiovascular Cardiovascular exam: regular rate and rhythm, no murmurs - GI/Abdominal GI/Abdominal exam: normal bowel sounds, soft, non-tender, no organomegaly or mass - Extremities Exam Extremities exam: Swollen deformed left ankle, bandage over lateral malleolus ulcer - Skin Skin exam: no rash Results - Labs CBC & BMP: 09/16/16 02:16 09/16/16 02:16 Lab Results: I have reviewed the past 24 hour labs - Diagnostic Findings Procedure: MRI: report reviewed by me (Left ankle MRI noted with destructive bony changes) Quality Measures - Stroke Symptom Onset Unknown: No
--- NOTE | 2016-09-18 18:49 | Orthopedic Progress Note ---
Orthopedics - Subjective Interval history: Ms. Marquez was seen this evening. She has no new complaints. Her antibiotics have been stopped in anticipation of a deep tissue and bone biopsy for cultures. Exam is unchanged. The lateral ulcer appears to be clean with serous drainage. MRI report and films were reviewed. They demonstrate fragmentation of the talus with erosive changes involving the distal tibia and fibula. She has chronic synovitis. Impression: Osteonecrosis talus/Charcot arthropathy. Lateral ankle ulceration. Unclear whether she has underlying osteomyelitis. Plan: I discussed her case with both Dr. Janae LUGO and Dr. Remi Rubio. I think the next step should be to perform a biopsy to obtain tissue for cultures. Tissue cultures will help make a decision whether we should perform limb salvage with a tibiocalcaneal fusion or proceed towards a below-knee amputation. I have discussed the plan and the risks and benefits with the patient. The patient wishes to pursue limb salvage, but will accept an amputation if it appears her limb is not salvageable. Exam - Constitutional Vitals: Period Temp Pulse Resp BP Sys/Salcedo Pulse Ox Last 24 Hr 97.1 F-98.6 F 68-80 18-22 112-146/69-85 95-99 Results - Labs CBC & BMP: 09/16/16 02:16 09/16/16 02:16 Quality Measures - Stroke Symptom Onset Unknown: No
[2016-09-19 03:46] LABS: Basophils % 0.5 % (0.0-0.8); Eosinophils # 0.3 10*3/uL (0.0-0.87); Hematocrit 28.6 VOL% (35.7-47.0); Hemoglobin 9.2 GM/DL (12.0-16.0); Immature Granulocytes % 0.2 %; Immature Granulocytes Absolute 0.02 #; Lymphocytes # 3.4 10*3/uL (1.4-4.0); Lymphocytes % 41.2 % (21.3-54.2); Mean Corpuscular HGB Conc 32.2 GM/DL (32-36); Mean Corpuscular Hemoglobin 27 PG (27-34); Mean Corpuscular Volume 84.9 FL (87-102); Mean Platelet Volume 10.1 FL (9.6-12.0); Monocytes # 0.6 10*3/uL (0.11-0.8); Monocytes % 7.8 % (1.7-12.7); Neutrophils # 3.8 10*3/uL (1.4-7.4); Neutrophils % 46.3 % (38.7-73.9); Platelet Count 305 T/CUMM (130-400); Red Blood Count 3.37 MC/CUMM (3.8-5.5); White Blood Count 8.2 T/CUMM (4-12)
[2016-09-19 04:18] LABS: Calcium 7.9 MG/DL (8.5-10.1); Osmolality,Calculated 283.3 MOS/KG (273-304); Potassium 3.9 MMOL/L (3.5-5.1)
[2016-09-19] MEDS: SODIUM CHLORIDE 0.9% 1,000 ML IV SCH (08:22)
[2016-09-19] MEDS: INSULIN REGULAR 100 UNIT/ML SUBCUT SCH ×4 (08:23→21:20)
[2016-09-19] MEDS ORDERED: LIDOCAINE 1% 5 ML VIAL ONE (09:06)
[2016-09-19] MEDS ORDERED: PROPOFOL 200 MG/20 ML VIAL IV ONE (09:06)
[2016-09-19] MEDS ORDERED: ONDANSETRON 4 MG/2 ML VIAL ONE (09:06)
--- NOTE | 2016-09-19 10:30 | Anesthesia Post-Op ---
Anesthesia Post OP - Post Ansesthetic Evaluation Patient seen in post op: Yes Resp: within normal limits CV: within normal limits Mental: within normal limits Temp: within normal limits [id number]: within normal limits Nausea and Vomiting: within normal limits Pain: within normal limits
[2016-09-19] MEDS ORDERED: SEVOFLURANE 1 UNIT/15 MINUTE INH ONE (10:33)
[2016-09-19] MEDS ORDERED: fentaNYL 100 MCG/2 ML VIAL ONE (10:33)
[2016-09-19] MEDS ORDERED: MIDAZOLAM 2 MG/2 ML VIAL ONE (10:33)
[2016-09-19] MEDS ORDERED: LACTATED RINGERS 1,000 ML IV ONE (10:33)
--- NOTE | 2016-09-19 10:42 | Operative Note ---
Date of procedure: 09/19/16 Procedure: DIAGNOSIS: Left talar osteonecrosis, Charcot arthropathy ankle, nonunion medial and lateral malleoli, question of possible associated osteomyelitis. Lateral ankle decubitus. PROCEDURE: Left ankle biopsy for cultures. Short leg cast placement with lateral window SURGEON: Jose De Jesus ANESTHESIA: LMA general PROCEDURE and FINDINGS: After adequate anesthesia was induced, her fibular ulcer was sealed off with OpSite and Mastisol. Left lower extremity was prepped and draped in the usual sterile fashion.The limb was gravity exsanguinated and tourniquet was inflated to 300 mmHg. Estimated tourniquet time was 9 minutes and was released during wound closure. The ankle joint was aspirated and 1 cc of serosanguineous fluid was obtained. A anterior medial approach was made to the tibiotalar joint. Skin, subcutaneous tissue and ankle capsule was incised longitudinally. Upon entering the ankle cavity, there was very little fluid. The appearance was consistent more with osteonecrosis and Charcot arthropathy and not infection. This fluid was sent for cell count and cultures. Synovial tissue was excised and sent for culture. The surfaces of the calcaneus and tibia were curetted and also sent for tissue culture. The wound was irrigated and closed in layers. 0 Vicryl jvmvbu-di-wkubo suture was used to close capsule. Subcutaneous tissue was closed with 3-0 Vicryl simple buried suture. Skin was closed with simple and horizontal mattress 3-0 nylon suture. The wound was dressed with bacitracin, Xeroform, 4 x 4 gauze and OpSite. The ulcer was dressed with Xeroform and 4 x 4 gauze. A well-padded short leg cast was applied. A window was created over the lateral malleoli for wound care to the ulcer. Plan: If the cultures from today are negative, the patient can be discharged with local wound care. She is to be nonweightbearing and will follow up with me in 10-14 days. If her cultures are positive, general surgery can proceed with a below-knee amputation. Surgeon / Physician: [facility] Dela Cruz Jr. Results - Labs CBC & BMP: 09/19/16 03:07 09/19/16 03:07 Discharge Plan - Discharge Medications No Action metFORMIN [Glucophage] 500 mg PO BID - Follow Up or Referral - Forms/Instructions
[2016-09-19 11:03] LABS: Lymphocytes,Synovial Fluid 40 %; Neutrophils,Synovial Fluid 26 %
--- NOTE | 2016-09-19 12:03 | Infectious Disease Progress ---
Assessment and Plan (1) Ankle osteomyelitis, left Status: Acute Assessment and plan: It seems like this may be more osteonecrosis and Charcot's arthropathy rather than osteomyelitis. Certainly there is no septic arthritis giving insignificant amount of white blood cells in the synovial fluid. Recommendations: We will resume antibiotics [vancomycin and Zosyn] pending receipt of the bone culture results. If bone cultures are negative then antibiotics will be stopped and patient will follow up with Dr. Dela Cruz in outpatient setting. Current Visit: Yes Qualifiers: Osteomyelitis type: other acute Qualified Code(s): M86.172 - Other acute osteomyelitis, left ankle and foot (2) Diabetic ulcer of left ankle Status: Acute Current Visit: Yes (3) Uncontrolled diabetes mellitus Status: Acute Assessment and plan: A1c is almost 10%. Current Visit: Yes Qualifiers: Diabetes mellitus type: type 2 Diabetes mellitus complication status: with skin complications Diabetes mellitus complication detail: with foot ulcer Diabetes mellitus ferry terminal supervisor insulin use: without ferry terminal supervisor use Qualified Code( s): E11.621 - Type 2 diabetes mellitus with foot ulcer; E11.65 - Type 2 diabetes mellitus with hyperglycemia; L97.509 - Non-pressure chronic ulcer of other part of unspecified foot with unspecified severity Infectious Disease - PN: Subj Interval history: Patient with major complaints, afebrile. She went for open biopsy of bone from her left ankle today. Infectious Disease Exam (PN) - Constitutional Vitals: Temp Pulse Resp BP Pulse Ox 98.1 F 63 20 161/96 98 09/19/16 11:14 09/19/16 11:14 09/19/16 11:14 09/19/16 11:14 09/19/16 11:14 General appearance: no acute distress Exam: General appearance: no acute distress - Eye Eye exam: Present: EOMI. no icterus Pupils: Present: NICCI - ENT ENT exam: no oral exudates - Respiratory Respiratory exam: vesicular BS, no crepitations or wheezes - Cardiovascular Cardiovascular exam: regular rate and rhythm, no murmurs - GI/Abdominal GI/Abdominal exam: normal bowel sounds, soft, non-tender, no organomegaly or mass - Extremities Exam Extremities exam: Left leg and ankle bandaged and in splint - Skin Skin exam: no rash Results - Labs CBC & BMP: 09/19/16 03:07 09/19/16 03:07 Lab Results: I have reviewed the past 24 hour labs (Synovial fluid analysis noted with insignificant amount of white blood cells) Quality Measures - Stroke Symptom Onset Unknown: No
[2016-09-19] MEDS: PANTOPRAZOLE 40 MG TABLET PO SCH (12:49)
[2016-09-19] MEDS: metFORMIN 500 MG TABLET PO SCH ×2 (12:49→21:23)
[2016-09-19] MEDS: PIPERACILLIN/TAZOBACTAM 3,375 MG in SODIUM CHLORIDE 0.9% 100 ML IV SCH ×2 (12:50→20:44)
--- NOTE | 2016-09-19 14:50 | Hospitalist Progress Note ---
Assessment and Plan (1) Ankle osteomyelitis, left Status: Acute Assessment and plan: Impression: 1. Type II DM with foot ulcer and probable underlying osteomyelitis Plan: Await results of bone biopsy and cultures from the surgical specimen This note was completed using Ardian voice recognition software. There may be prison teacher errors as a result. Current Visit: Yes Qualifiers: Osteomyelitis type: other acute Qualified Code(s): M86.172 - Other acute osteomyelitis, left ankle and foot Hospitalist: Subjective Interval history: Follow-up type II DM with possible osteomyelitis. The patient is status post biopsy of the affected area. We are waiting on cultures. Infectious disease has not yet instituted antibiotics. Exam - Constitutional Vitals: Period Temp Pulse Resp BP Sys/Salcedo Pulse Ox Last 24 Hr 97.4 F-98.9 F 63-98 16-20 109-161/70-99 96-100 Vital signs are noted above. Heart is regular with no murmur. Lungs are clear. Left leg is bandaged. She is awake and alert Results - Labs CBC & BMP: 09/19/16 03:07 09/19/16 03:07 Lab Results: I have reviewed the past 24 hour labs Quality Measures - Stroke Symptom Onset Unknown: No
[2016-09-19] MEDS: VANCOMYCIN INJ 750 MG in SODIUM CHLORIDE 0.9% 250 ML IV SCH (16:47)
[2016-09-19] MEDS: MORPHINE 2 MG/1 ML SYRINGE IV PRN (21:56)
[2016-09-20] MEDS: VANCOMYCIN INJ 750 MG in SODIUM CHLORIDE 0.9% 250 ML IV SCH ×2 (04:34→17:56)
[2016-09-20] MEDS: PIPERACILLIN/TAZOBACTAM 3,375 MG in SODIUM CHLORIDE 0.9% 100 ML IV SCH ×3 (06:42→20:35)
--- NOTE | 2016-09-20 06:57 | Orthopedic Progress Note ---
Assessment and Plan (1) Left ankle pain Problem details: etiology being worked up. ESR elevated. Status: Acute Assessment and plan: NWB LLE f/u Cx Resume wound care on lateral ankle Current Visit: No Qualifiers: Chronicity: unspecified Qualified Code(s): M25.572 - Pain in left ankle and joints of left foot Orthopedics - Subjective Interval history: No c/o this am. Pain controlled. Cast clean and dry Exam - Constitutional Vitals: Period Temp Pulse Resp BP Sys/Salcedo Pulse Ox Last 24 Hr 97.7 F-98.8 F 63-77 16-20 107-165/64-106 95-100 Results - Labs CBC & BMP: 09/19/16 03:07 09/19/16 03:07 Quality Measures - Stroke Symptom Onset Unknown: No
[2016-09-20] MEDS: INSULIN REGULAR 100 UNIT/ML SUBCUT SCH ×4 (08:35→20:31)
[2016-09-20] MEDS: PANTOPRAZOLE 40 MG TABLET PO SCH (08:36)
[2016-09-20] MEDS: metFORMIN 500 MG TABLET PO SCH ×2 (08:36→20:31)
[2016-09-20] MEDS: ENOXAPARIN 40 MG/0.4 ML SYRINGE SUBCUT SCH (08:38)
--- NOTE | 2016-09-20 10:07 | Hospitalist Progress Note ---
Assessment and Plan (1) Ankle osteomyelitis, left Status: Acute Assessment and plan: Impression: 1. Type II DM with foot ulcer and probable underlying osteomyelitis Plan: Await results of bone biopsy and cultures from the surgical specimen. Continue current care This note was completed using Fieldglass voice recognition software. There may be flying squad worker errors as a result. Current Visit: Yes Qualifiers: Osteomyelitis type: other acute Qualified Code(s): M86.172 - Other acute osteomyelitis, left ankle and foot Hospitalist: Subjective Interval history: Follow-up osteomyelitis or osteonecrosis of the left ankle and type II DM. The patient remains relatively uninterested in discussing her case. Bandages in place over the left lower extremity. She denies any significant pain. Exam - Constitutional Vitals: Period Temp Pulse Resp BP Sys/Salcedo Pulse Ox Last 24 Hr 97.5 F-98.4 F 63-79 16-20 107-165/64-106 95-100 Vital signs are noted above. The cast is in place on the left ankle. Results - Labs CBC & BMP: 09/19/16 03:07 09/19/16 03:07 Lab Results: I have reviewed the past 24 hour labs Quality Measures - Stroke Symptom Onset Unknown: No
[2016-09-21] MEDS: VANCOMYCIN INJ 750 MG in SODIUM CHLORIDE 0.9% 250 ML IV SCH ×3 (05:10→20:27)
[2016-09-21] MEDS: INSULIN REGULAR 100 UNIT/ML SUBCUT SCH ×4 (08:34→21:07)
[2016-09-21] MEDS: PIPERACILLIN/TAZOBACTAM 3,375 MG in SODIUM CHLORIDE 0.9% 100 ML IV SCH ×2 (08:36→16:13)
[2016-09-21] MEDS: ENOXAPARIN 40 MG/0.4 ML SYRINGE SUBCUT SCH (08:36)
[2016-09-21] MEDS: metFORMIN 500 MG TABLET PO SCH ×2 (08:36→21:07)
[2016-09-21] MEDS: PANTOPRAZOLE 40 MG TABLET PO SCH (08:37)
--- NOTE | 2016-09-21 10:07 | Hospitalist Progress Note ---
Assessment and Plan (1) Ankle osteomyelitis, left Status: Acute Assessment and plan: Impression: 1. Type II DM with osteomyelitis or osteonecrosis of the left ankle. Plan: Await results of bone biopsy and cultures from the surgical specimen. Continue current care This note was completed using Youx[employer] voice recognition software. There may be fine arts chair errors as a result. Current Visit: Yes Qualifiers: Osteomyelitis type: other acute Qualified Code(s): M86.172 - Other acute osteomyelitis, left ankle and foot Hospitalist: Subjective Interval history: Follow-up osteomyelitis or osteonecrosis of the left ankle and type II DM. The patient is awake and alert today. She is requesting to go home as soon as possible so that she can go to a September celebration. Pathology report and cultures from surgical specimen are still pending. Exam - Constitutional Vitals: Period Temp Pulse Resp BP Sys/Salcedo Pulse Ox Last 24 Hr 97.9 F-99.1 F 67-78 18-20 103-142/66-89 96-100 Vital signs are noted above. Heart is regular with no murmur or gallop. Lungs are clear with no rales or wheezes. The left ankle has a cast intact. Results - Labs CBC & BMP: 09/19/16 03:07 09/19/16 03:07 Lab Results: I have reviewed the past 24 hour labs (Glucoses are anywhere from 150-250) Quality Measures - Stroke Symptom Onset Unknown: No
[2016-09-22] MEDS: PIPERACILLIN/TAZOBACTAM 3,375 MG in SODIUM CHLORIDE 0.9% 100 ML IV SCH ×2 (02:40→10:24)
[2016-09-22] MEDS: VANCOMYCIN INJ 750 MG in SODIUM CHLORIDE 0.9% 250 ML IV SCH (06:35)
--- NOTE | 2016-09-22 07:43 | Orthopedic Progress Note ---
Assessment and Plan (1) Left ankle pain Problem details: etiology being worked up. ESR elevated. Status: Acute Assessment and plan: Cultures are negative, Charcot arthropathy is most likely diagnosis Nonweightbearing left lower extremity Follow with Dr. Dela Cruz in 10-14 days for cast change Current Visit: No Qualifiers: Chronicity: unspecified Qualified Code(s): M25.572 - Pain in left ankle and joints of left foot Orthopedics - Subjective Interval history: No new complaints, patient states she is now able to wiggle her toes. On exam cast is clean and dry Ankle cultures are negative Exam - Constitutional Vitals: Period Temp Pulse Resp BP Sys/Salcedo Pulse Ox Last 24 Hr 97.1 F-99.1 F 66-71 16-22 111-133/65-87 99-100 Results - Labs CBC & BMP: 09/19/16 03:07 09/19/16 03:07 Quality Measures - Stroke Symptom Onset Unknown: No Specialty Discharge - Follow Up or Referrals Follow up with: [facility] Dela Cruz Jr., MD [Physician] - (10 days) - Speciality Discharge Instructions Orthopedic Instructions: Wet-to-dry dressing change left ankle twice daily. Keep cast clean and dry. Nonweightbearing left lower extremity
[2016-09-22] MEDS: INSULIN REGULAR 100 UNIT/ML SUBCUT SCH ×2 (07:58→12:15)
--- NOTE | 2016-09-22 08:11 | General Surgery Progress Note ---
Assessment and Plan - Time spent with patient Time spent with patient: Less than 30 minutes (1) Ankle osteomyelitis, left Status: Acute Assessment and plan: Ms. Higgins is a 31-year-old female with uncontrolled diabetes , history of noncompliance admitted by the hospitalist on 09/15/2016 with a swollen painful left ankle. This problem has been going on for approximately a year with patient noncompliant with follow-up. She now has a chronic open lateral malleolus ulcer with edema and osteomyelitis with extensive erosion and fractures of the left ankle. Dr. Dela Cruz has seen the patient before and feel it is more appropriate for orthopedics to evaluate this patient. Dr. Janae LUGO will be happy to follow along and will help if needed. We will go ahead and let the patient eat supper, make her n.p.o. after midnight, and consult Dr. Dela Cruz and Dr. Khalil from infectious diseases for in the morning. Dr. Janae LUGO will see and examined patient. 09/22/2016 patient's bone cultures done on 09/19/2016 are negative. Patient is being discharged home today with local wound care and short leg cast. She will be nonweightbearing and follow-up with Dr. Dela Cruz in his office in 10-14 days. Patient can follow-up with Dr. Janae LUGO on a as needed basis. Patient was seen and examined by Dr. De Jesus covering for Dr. Janae LUGO. Current Visit: Yes Qualifiers: Osteomyelitis type: other acute Qualified Code(s): M86.172 - Other acute osteomyelitis, left ankle and foot (2) Diabetic ulcer of left ankle Status: Acute Current Visit: Yes (3) Smoker Status: Acute Current Visit: Yes (4) Uncontrolled diabetes mellitus Status: Acute Current Visit: Yes Qualifiers: Diabetes mellitus type: type 2 Diabetes mellitus complication status: with skin complications Diabetes mellitus complication detail: with foot ulcer Diabetes mellitus intermediate manager insulin use: without skilled nursing use Qualified Code( s): E11.621 - Type 2 diabetes mellitus with foot ulcer; E11.65 - Type 2 diabetes mellitus with hyperglycemia; L97.509 - Non-pressure chronic ulcer of other part of unspecified foot with unspecified severity (5) Avascular necrosis Status: Acute Current Visit: No (6) Diabetes Status: Acute Current Visit: No Qualifiers: Diabetes mellitus type: type 2 (7) Hyperglycemia Status: Acute Current Visit: No (8) Non-compliant behavior Status: Acute Current Visit: Yes Subjective Narrative: Patient feeling better. No complaints of pain. Understands she needs to be nonweightbearing on her left lower extremity until follow-up with Dr. Dela Cruz in 10-[address] Stacy came by and said her cultures were negative and she could go home. Patient is in agreement. Exam - Constitutional Vitals: Period Temp Pulse Resp BP Sys/Salcedo Pulse Ox Last 24 Hr 97.0 F-97.9 F 66-71 16-22 111-132/65-84 99-100 Exam: 31-year-old female, no acute distress, alert and oriented Chest clear CV regular rate and rhythm Abdomen soft and nontender Extremities left lower extremity dressing clean and dry Results - Labs CBC & BMP: 09/19/16 03:07 09/19/16 03:07 Quality Measures - Stroke Symptom Onset Unknown: No Specialty Discharge - Follow Up or Referrals Follow up with: [facility] Dela Cruz Jr., MD [Physician] - 1 Week
[2016-09-22] MEDS: metFORMIN 500 MG TABLET PO SCH (10:24)
[2016-09-22] MEDS: PANTOPRAZOLE 40 MG TABLET PO SCH (10:25)
[2016-09-22] MEDS: ENOXAPARIN 40 MG/0.4 ML SYRINGE SUBCUT SCH (10:25)
--- NOTE | 2016-09-22 10:30 | Infectious Disease Progress ---
Assessment and Plan (1) Ankle osteomyelitis, left Status: Acute Assessment and plan: With all cultures being negative, the conclusion is that this is a case of osteonecrosis and Charcot's arthropathy rather than osteomyelitis/septic arthritis. Recommendations: Discontinue antibiotics and patient will follow up with orthopedics for definitive treatment of her unstable left ankle. Current Visit: Yes Qualifiers: Osteomyelitis type: other acute Qualified Code(s): M86.172 - Other acute osteomyelitis, left ankle and foot (2) Diabetic ulcer of left ankle Status: Acute Current Visit: Yes (3) Uncontrolled diabetes mellitus Status: Acute Assessment and plan: A1c is almost 10%. Current Visit: Yes Qualifiers: Diabetes mellitus type: type 2 Diabetes mellitus complication status: with skin complications Diabetes mellitus complication detail: with foot ulcer Diabetes mellitus correction insulin use: without computer terminal operator use Qualified Code( s): E11.621 - Type 2 diabetes mellitus with foot ulcer; E11.65 - Type 2 diabetes mellitus with hyperglycemia; L97.509 - Non-pressure chronic ulcer of other part of unspecified foot with unspecified severity Infectious Disease - PN: Subj Interval history: Patient doing well, she has a cast to her left leg. No significant pain. Afebrile. Infectious Disease Exam (PN) - Constitutional Vitals: Temp Pulse Resp BP Pulse Ox 97.0 F L 66 18 132/84 100 09/22/16 07:46 09/22/16 07:46 09/22/16 07:46 09/22/16 07:46 09/22/16 07:46 General appearance: no acute distress Exam: General appearance: no acute distress - Eye Eye exam: Present: EOMI. no icterus Pupils: Present: NICCI - ENT ENT exam: no oral exudates - Extremities Exam Extremities exam: Left leg and ankle bandaged and in splint - Skin Skin exam: no rash Results - Labs CBC & BMP: 09/19/16 03:07 09/19/16 03:07 Lab Results: I have reviewed the past 24 hour labs (Cultures of synovial fluid NTC from left ankle are all negative. The gram stains were also negative.) Quality Measures - Stroke Symptom Onset Unknown: No Specialty Discharge - Follow Up or Referrals Follow up with: Abdoulaye Cardoso III., MD [Physician] - (Follow up as needed) North Dela Cruz Jr., MD [Physician] - 10/02/16 8:30 am (10 days)
--- NOTE | 2016-09-22 10:36 | Discharge Summary ---
<Mahendra Peres - Last Filed: 09/22/16 15:42> Hospital Course - Hospital Course Hospital Course: Ms. Marquez is a 31 year old female who presented to the ED on 09/16/2016 with complaints of left ankle swelling. She was admitted to the hospital medicine service with diabetic ulcer of left ankle, osteomyelitis, uncontrolled diabetes mellitus, hypertension, and tobaccoism. He was started on IV antibiotics, blood cultures were obtain, surgery was consulted for debridement. After consultation , general surgery did not find it necessary to debride the wound at this time. Infectious disease was consulted and recommended continuing empiric vancomycin and zosyn, monitor renal function while on vancomycin. On 09/19/2016, orthopedic surgery perfomed a left ankle biopsy for cultures and placed a short leg cast with lateral window. Patient was found to have signs more consistent with osteonecrosis and Charcot's arthropathy rather than osteomyelitis. Bone cultures returned negative on 09/22/2016. It was felt that patient did not need antibiotics. She has reached maximum benefit from hospitalization at this time and is stable for discharge to home. She will be non-weightbearing and has been instructed to follow up with Dr. Dela Cruz in 2 weeks. He can follow up with Dr. Cardoso, general surgery, as needed. Discharge orders and additional intructions to follow per Dr. Aguirre. Specialty Discharge - Follow Up or Referrals Follow up with: Abdoulaye Cardoso III., MD [Physician] - (Follow up as needed) [place] Dela Cruz Jr., MD [Physician] - 10/02/16 8:30 am (10 days) Discharge Plan - Discharge Data Disposition: Disch To Home/Self Care - Discharge Medications New glipiZIDE [Glucotrol] 5 mg PO BIDAC #60 tablet HYDROcodone/ACETAMIN 5-325 [Entiat 5-325] 1 tablet PO Q4H PRN #15 tablet PRN Reason: Pain Moderate (4-7) Continue metFORMIN [Glucophage] 500 mg PO BID - Follow Up or Referral Follow Up: Abdoulaye Cardoso III., MD [Physician] - (Follow up as needed) [place] Dela Cruz Jr., MD [Physician] - 10/02/16 8:30 am (10 days) - Forms/Instructions Instructions: Osteomyelitis (DC) Exam - Constitutional Vitals: Period Temp Pulse Resp BP Sys/Salcedo Pulse Ox Last 24 Hr 97.0 F-97.9 F 66-70 16-22 111-141/65-91 99-100 Discharge Results Labs on day of discharge: Labs from last 24 hours 09/22/16 09/22/16 09/21/16 10:58 07:25 21:03 POC Glucose 247 H 142 H 161 H 09/21/16 09/21/16 16:17 12:50 POC Glucose 208 H 232 H DS: Provider Date of admission: 09/16/16 01:09 Primary care physician: Bonnie Granados MD Attending physician on admission: Cresencio Contreras DO Consults: 09/16/16 01:09 Consult to Physician [CONS] Routine Comment: non healing L lateral malleolar ulcer Consulting Provider: Abdoulaye Cardoso III. Consult to Specialist Group: Surgery When should Consulting Provider be notified: In am Person Notified: zan Date Notified: 09/16/16 Time Notified: 09:15 09/16/16 01:11 Consult to Diabetes Center, Educator [CONS] Routine Reason for Pump Operator Byproducts: Diabetes Education Consult to Wound Care [facility] [CONS] Routine Reason for Wound Care: Wound Care Management 09/16/16 15:49 Consult to Physician [CONS] Routine Comment: Consulting Provider: [place] Dela Cruz Jr. Consulting Provider Notified: No When should Consulting Provider be notified: In am Person Notified: USMAN Date Notified: 09/17/16 Time Notified: 08:16 09/16/16 16:39 Consult to Physician [CONS] Routine Comment: saw pt in [place], now osteo left ankle Consulting Provider: Shantel Garcia When should Consulting Provider be notified: In am Person Notified: yair Date Notified: 09/17/16 Time Notified: 08:49 09/17/16 11:07 Consult to Pharmacy [CONS] Routine Reason for Pharmacy Consult: Dose/Manage Vancomycin 09/19/16 10:26 Consult to Physical Therapy [CONS] Routine Reason for Physical Therapy: Evaluate and Treat Start Therapy: Today Consult Comment: ivonne lllanie 09/19/16 12:03 Consult to Pharmacy [CONS] Routine Reason for Pharmacy Consult: Dose/Manage Vancomycin Discharging clinician: Mahendra VALDOVINOS <John Aguirre - Last Filed: 10/09/16 17:29> Discharge Plan - Discharge Data Condition at Discharge: Stable Discharge Diet: diabetic diet Activity: other (no weight bearing on left leg) Hygiene: keep area(s) dry Weight Bearing at Discharge: non-weight bearing (left leg) DS: Provider Discharging clinician: Manuel Aguirre MD Expected date of discharge: 09/22/16
[2016-09-22 11:25] VITALS: BP 141/91
== END 2016-09-22 14:17 | disposition home or self-care (01) | DRG 629 ==
LOC: N.ED 22:12 → SUATTDRO 09-16 01:09 → N.EDINP 09-16 01:09 → N.2E 09-16 01:26
PROVIDERS: ADMIT Internal Medicine; ATTEND Family Medicine

== ENCOUNTER 2016-11-30 12:16 | Inpatient (IN) ==
[~2016-11-30 12:16] MED LIST: LIDOCAINE 2% 5 ML VIAL ONE; PROPOFOL 200 MG/20 ML VIAL IV ONE
[2016-11-30] MEDS ORDERED: PIPERACILLIN/TAZOBACTAM 3,375 MG in SODIUM CHLORIDE 0.9% 100 ML IV STA (14:18)
--- NOTE | 2016-11-30 14:25 | Emergency Department Note ---
Anup Virk Brittany, am scribing for, and in the presence of, Rancho Ortiz MD 13:03. Diana Virk Thomas, MD, personally performed the services described in this documentation, ascribed by Dominique Hebert in my presence, and it is both accurate and complete 424 . Arrival - Arrival Chief Complaint: Extremity Problem ED Nursing Triage Note: pt had surgery on her rt ankle 11/26/16. pt went to [facility] for site infection. acu check high Mode of Arrival: Stretcher Limitations: No Limitations Source: Patient, RN Notes Reviewed - History of Present Illness HPI Narrative: Patient is a 31 y/o [place] female presenting to the ED via EMS from [facility] for further evaluation of Post Operative Infection of the L ankle. Patient presented to [facility] after noticing drainage, bleeding, and odor coming from surgical incision site of the L ankle. Patient states that she took a fall on Thursday, November 26 which is when she states her troubles began. She has been chilled, but denies any fevers, cough, or congestion. Patient had a Tibial Calcaneal Fusion of the L Ankle performed on 11/19/[address] Dela Cruz. Patient has a PMHx of NIDDM. Patient denies having any other complaints. Date of Last Menstrual Period: 11/26/16 Allergies/Adverse Reactions: Allergies Allergy/AdvReac Type Severity Reaction Status Date / Time No Known Allergies Allergy Verified 09/15/16 22:28 Home Medications: Home Medications Medication Instructions Recorded Confirmed Type metFORMIN [Glucophage] 500 mg PO BID 04/01/16 11/19/16 History glipiZIDE [Glucotrol] 5 mg PO BIDAC #60 tablet 09/22/16 11/19/16 Rx Review of System - Review of System Constitutional: Present: chills. Absent: fever, night sweats Respiratory: Absent: cough, respiratory distress Cardiovascular: Absent: chest pain, orthopnea Musculoskeletal: Present: as per HPI Skin: Present: as per HPI, change in color (redness L ankle), other (drainage from incision sites) Neurological: Absent: weakness, numbness Medical,Surgical,& Family Hx - Medical History Cardio: History of: Hypertension Neurology: No history of: Seizures Endocrine: History of: Diabetes Mellitus (NIDDM) Respiratory: No history of: COPD Gastrointestinal: No history of: GERD Musculoskeletal: History of: Musculoskeletal Problems (tibal calcaneal fusion left ankle 11/19/16) Other: Comment Only: Anesthesia Reactions (no family problems) - Surgical History Thoracic Surgeries: Patient denies;: Organ Transplant Abdominal Surgeries: Patient denies: Abdominal Surgery Reproductive Surgeries: Surgical HX of;: Section Orthopedic Surgeries: Surgical HX of;: Orthopedic Surgery (scope left ankle; ORIF LT ANKLE) - Family History Family History: Reports;: Family Diabetes, Family Hypertension - Social History Smoking Status: Never smoker Frequency of Alcohol Use: None Type of Drug Use: None Exam Vital Signs: Vital Signs Temperature 99.1 F 11/30/16 12:19 Pulse Rate 111 H 11/30/16 15:41 Respiratory Rate 18 11/30/16 15:41 Blood Pressure 106/63 11/30/16 15:41 O2 Sat by Pulse Oximetry 100 11/30/16 15:41 - General General appearance: alert, in no apparent distress - Head Head exam: Present: atraumatic, normocephalic - Eye Eye exam: Present: EOMI. Absent: conjunctival injection, periorbital swelling, periorbital tenderness - ENT ENT exam: Present: mucous membranes moist - Neck Neck exam: Present: trachea midline - Chest Chest inspection: Present: symmetric chest wall rise - Respiratory Respiratory exam: Present: normal lung sounds bilaterally. Absent: respiratory distress - Cardiovascular Cardiovascular exam: Present: regular rate, normal rhythm, normal heart sounds - Extremities Exam Extremities exam: Present: tenderness, normal capillary refill, pedal edema (L foot). Absent: normal inspection (Malalignment of the L foot; Erythema, swelling, and warmth of the entire L foot and ankle with purulent drainage around recent surgical incision sites), calf tenderness - Neurological Exam Neurological exam: Present: alert, oriented X3. Absent: motor sensory deficit - Psychiatric Psychiatric exam: Present: normal affect, normal mood - Skin Skin exam: Present: warm, dry. Absent: rash Course - Consultations Consultation #1: Hospitalist, will admit Time: 15:00 Results - Labs CBC & BMP: 11/30/16 15:06 Lab Results: I have reviewed the patients labs Labs: Laboratory Tests 11/30/16 15:06 WBC 15.4 H RBC 3.75 L Hgb 10.6 L Hct 29.9 L MCV 79.7 L Plt Count 636 H Neut % (Auto) 82.1 H Lymph % (Auto) 7.1 L Neut # (Auto) 12.7 H Lymph # (Auto) 1.[address] [place] # (Auto) 1.2 H - Diagnostic Findings Procedure: X-ray: report reviewed by me (Ankle XR: Recent postsurgical fusion of the Charcot joints. No recent new fracture.) Disposition Clinical Impression: Post op infection, Leukocytosis, SIRS (systemic inflammatory response syndrome) Case discussed with: patient Disposition: Still a Patient Condition: Stable
--- NOTE | 2016-11-30 15:00 | XRay Report ---
History: Injury with pain Date: 11/30/2016 Study: Left ankle 3 views Comparison exam: September 15, 2016 No new fracture or dislocation is seen. The patient is status post cervical fusion of the tibiotalar and subtalar joints with intramedullary maria m and screws. Scattered bone fragments about the ankle compatible with advanced Charcot joint formation are present as before. There is soft tissue swelling about the ankle. Surgical skin franklyn are noted medially and laterally. Impression: Recent postsurgical fusion of the Charcot joints. No definite new fracture PROCEDURE INTERPRETED AT [facility] DEPARTMENT OF RADIOLOGY Final Report Signed by: Dr. Ana Laura Smith
[2016-11-30 15:18] LABS: Basophils % 0.3 % (0.0-0.8); Eosinophils # 0.1 10*3/uL (0.0-0.87); Eosinophils % 0.6 % (0.00-10.9); Hematocrit 29.9 VOL% (35.7-47.0); Hemoglobin 10.6 GM/DL (12.0-16.0); Immature Granulocytes % 2.4 %; Immature Granulocytes Absolute 0.37 #; Lymphocytes # 1.1 10*3/uL (1.4-4.0); Lymphocytes % 7.1 % (21.3-54.2); Mean Corpuscular HGB Conc 35.5 GM/DL (32-36); Mean Corpuscular Hemoglobin 28 PG (27-34); Mean Corpuscular Volume 79.7 FL (87-102); Mean Platelet Volume 10.4 FL (9.6-12.0); Monocytes # 1.2 10*3/uL (0.11-0.8); Monocytes % 7.5 % (1.7-12.7); Neutrophils # 12.7 10*3/uL (1.4-7.4); Neutrophils % 82.1 % (38.7-73.9); Platelet Count 636 T/CUMM (130-400); Red Blood Count 3.75 MC/CUMM (3.8-5.5); White Blood Count 15.4 T/CUMM (4-12)
[2016-11-30] MEDS ORDERED: PIPERACILLIN/TAZOBACTAM 3,375 MG VIAL IV ONE (15:21)
[2016-11-30] MEDS ORDERED: SODIUM CHLORIDE 0.9% 100 ML IV ONE (15:21)
[2016-11-30] MEDS ORDERED: ACETAMINOPHEN 325 MG TABLET PO PRN (15:26)
[2016-11-30] MEDS ORDERED: ZALEPLON 5 MG CAPSULE PO PRN (15:26)
[2016-11-30] MEDS ORDERED: MORPHINE 2 MG/1 ML SYRINGE IV PRN (15:26)
[2016-11-30] MEDS ORDERED: ONDANSETRON 4 MG/2 ML VIAL IV PRN (15:26)
--- NOTE | 2016-11-30 15:26 | Hospitalist History & Physical ---
Addendum entered and electronically signed by Kaitlin Wilson CNP 11/30/16 16 :06: Assessment and plan (4) Hyponatremia status: Acute Assessment and plan: Sodium was noted at 122 at the time of ED presentation. The patient has no profound neurological deficits noted. We will rehydrate and recheck CMP in a.m. Original Note: <Kaitlin Wilson - Last Filed: 11/30/16 15:30> Assessment and Plan (1) Sepsis Status: Acute Assessment and plan: At the time of ED presentation, the patient was noted to be tachycardic with a heart rate recorded at 121. In addition, the patient had a low-grade temperature recorded at 99.1. Labs were obtained which were significant for white blood cell count 15.4 and lactic acid was noted at 2.0. The patient's left ankle was noted to be grossly edematous with purulent malodorous drainage noted; however franklyn were intact. The left foot was warm and painful to touch. Based on these findings, the patient meets the sepsis criteria. We will initiate the sepsis bundle. Current Visit: Yes (2) Diabetes Status: Acute Assessment and plan: The patient was grossly hyperglycemic at the time of ED presentation. Blood glucose was noted above 500. This gross elevation may be largely in part as a result of overwhelming infection however, I feel that there is a component of medical noncompliance. Will obtain hemoglobin A1c and start Accu-Cheks with sliding scale coverage. We will consult diabetes management to offer dietary recommendations. Current Visit: No Qualifiers: Diabetes mellitus type: type 2 Diabetes mellitus complication detail: with foot ulcer (3) Swelling of joint, ankle, left Status: Acute Assessment and plan: The patient recently underwent tibial calcaneal fusion on the left ankle on November 19, 2016 under the direction of Dr. Dela Cruz. The left ankle is obviously deformed. It is grossly edematous with discoloration. Upon examination, the left ankle was noted draining purulent malodorous drainage. X-ray of the left ankle was unremarkable for any new definitive fracture however, recent postsurgical fusion of the Charcot joints was noted. We will obtain wound culture. Blood cultures have been obtained. We will start empiric antibiotic coverage pending culture and sensitivity report. In addition, we will consult orthopedics and infectious disease to evaluate and offer further recommendations. Current Visit: No History of Present Illness Chief complaint: Infected left ankle History of present illness: This is a very pleasant 31-year-old female that presented to [facility] this afternoon as a transfer from [facility] in [place], [place] for the further evaluation of left foot infection. Patient has a medical history significant for non-insulin diabetes mellitus, hypertension, and Charcot foot deformity. Patient has a surgical history significant for tibial calcaneal fusion left ankle (11/19/2016). Apparently, the patient presented to [facility] this morning for the evaluation of her left foot. She noticed that her left foot started to drain in progress to bleeding. The patient reported a recent surgical procedure to the left ankle secondary to Charcot foot deformity. The patient had an uneventful surgery and was subsequently discharged home. In addition, she reported a fall on November 26 in which she reported "started all of her problems". She denied fever, cough, congestion however, reported chills. She became alarmed and decided to present to the ED for further evaluation. The patient was evaluated at the time of ED presentation at [facility]. Labs were obtained which were significant for white blood cell count at 16.4, hemoglobin 10.9, hematocrit 32.8, platelet count 627, glucose greater than 600, BUN 11, creatinine 1.4, calcium 9.1, sodium 122, potassium 3.0, chloride 85, bicarbonate 27, lactic acid 2.0. Blood cultures were obtained [facility] was contacted for transfer for a higher level of care. The patient was subsequently transferred to [facility] for further evaluation. Patient was assessed at the time of ED presentation. The patient was noted to be tachycardic with a heart rate recorded at 121. The patient remained grossly hyperglycemic with a glucose level noted at 454. Labs were obtained which were significant for white blood cell count at 15.4, hemoglobin 10.6, hematocrit 29.9 , and platelet count 136. X-ray left ankle significant for recent postsurgical fusion of the Charcot joints; no new definitive fracture was noted. After brief discussion with both Dr. Ortiz and Dr. Baez, the patient will be admitted to the hospitalist service for continuation of care. Due to the severity of the patient's presenting symptoms, an orthopedic and infectious disease consultation has been requested to evaluate and assist during the clinical encounter. Home medications have been reviewed and reconciled. CODE STATUS discussed; patient is a FULL CODE. At the time of ED presentation, the patient was noted to be tachycardic with a heart rate recorded at 121. In addition, the patient had a low-grade temperature recorded at 99.1. Labs were obtained which were significant for white blood cell count 15.4 and lactic acid was noted at 2.0. The patient's left ankle was noted to be grossly edematous with purulent malodorous drainage noted; however franklyn were intact. The left foot was warm and painful to touch. Based on these findings, the patient meets the sepsis criteria. We will initiate the sepsis bundle. Home Medications Medication Instructions Recorded Confirmed Type metFORMIN [Glucophage] 500 mg PO BID 04/01/16 11/19/16 History glipiZIDE [Glucotrol] 5 mg PO BIDAC #60 tablet 09/22/16 11/19/16 Rx Allergies Allergy/AdvReac Type Severity Reaction Status Date / Time No Known Allergies Allergy Verified 09/15/16 22:28 Medical,Surgical,& Family Hx - Medical History Cardio: History of: Hypertension Neurology: No history of: Seizures Endocrine: History of: Diabetes Mellitus (NIDDM) Respiratory: No history of: COPD Gastrointestinal: No history of: GERD Musculoskeletal: History of: Musculoskeletal Problems (tibal calcaneal fusion left ankle 11/19/16) Other: Comment Only: Anesthesia Reactions (no family problems) - Surgical History Thoracic Surgeries: Patient denies;: Organ Transplant Abdominal Surgeries: Patient denies: Abdominal Surgery Reproductive Surgeries: Surgical HX of;: Section Orthopedic Surgeries: Surgical HX of;: Orthopedic Surgery (scope left ankle; ORIF LT ANKLE) - Family History Family History: Reports;: Family Diabetes, Family Heart Disease, Family Hypertension, Family Stroke - Social History Smoking Status: Never smoker Have you smoked in the last 12 months: No Frequency of Alcohol Use: None Type of Drug Use: None Marital Status: Single Lives With:: Parent Functional capacity: independent ambulation 12 point system: reviewed and no additional remarkable complaints except as stated Exam - Constitutional Vitals: Period Temp Pulse Resp BP Sys/Salcedo Pulse Ox Last 24 Hr 99.1 F-99.1 F 121-121 18-18 105-105/70-70 100 General appearance: normal weight, no acute distress - Head Head exam: Present: normal inspection, normocephalic, atraumatic - Eye Eye exam: Present: EOMI. Absent: conjunctival injection Pupils: Present: NICCI, normal accommodation - ENT ENT exam: Present: normal exam, normal external ear exam, normal oropharynx - Neck Neck exam: Present: normal inspection. Absent: lymphadenopathy, meningismus, tenderness, thyromegaly - Respiratory Respiratory exam: Present: clear to auscultation bilaterally. Absent: rales, rhonchi, stridor, wheezes - Cardiovascular Cardiovascular exam: Present: regular rate and rhythm. Absent: carotid bruit, diastolic murmur, gallop, JVD, rubs, systolic murmur - GI/Abdominal GI/Abdominal exam: Present: normal bowel sounds, rebound - Extremities Exam Extremities exam: Present: edema (+4 edema noted to left foot.). Absent: normal inspection (Gross deformity noted to left foot) - Expanded Left Lower Hip exam: Present: normal inspection Upper Leg exam: Present: normal inspection Knee exam: Present: normal inspection Lower leg exam: Present: normal inspection Ankle exam: Present: swelling, tenderness, deformity, ecchymosis Neuro vascular tendon exam: Present: no vascular compromise Gait: Present: not tested/not observed - Back Exam Back exam: Present: normal inspection - Neurological Exam Neurological exam: Present: alert, oriented X3, CN II-XII intact - Psychiatric Psychiatric exam: Present: normal affect, normal mood - Skin Skin exam: Present: normal color, warm, dry Results - Labs CBC & BMP: 11/30/16 15:06 Lab Results: I have reviewed the past 24 hour labs Sepsis - Sepsis Classification of Sepsis: Severe Sepsis Possible / Suspected infection from: Left foot - Physical Exam Physical Exam: At the time of ED presentation, the patient was noted to be tachycardic with a heart rate recorded at 121. In addition, the patient had a low-grade temperature recorded at 99.1. Labs were obtained which were significant for white blood cell count 15.4 and lactic acid was noted at 2.0. The patient's left ankle was noted to be grossly edematous with purulent malodorous drainage noted; however franklyn were intact. The left foot was warm and painful to touch. Based on these findings, the patient meets the sepsis criteria. We will initiate the sepsis bundle. - Physical Exam Respiratory exam: clear to auscultation bilaterally Capillary Refill: Less Than 3 Seconds Peripheral pulses: Radial (L): 2+, Radial (R): 2+, Dorsalis Pedis (L) PM: 2+, Dorsalis Pedis (R) PM: 2+, Posterior Tibialis (L): 2+, Posterior Tibialis (R): 2 + Cardiovascular exam: tachycardia Skin exam: normal color <Naun Baez - Last Filed: 11/30/16 16:38> History of Present Illness History of present illness: Ms. Marquez is a 31 year old female who is being admitted to the hospital with a postoperative left ankle infection, sepsis without shock, and diabetes mellitus with hyperglycemia. I have interviewed and examined the patient and reviewed all available laboratory and radiographic test results. I agree with the assessment and plans of Kaitlin NELSON. The patient has been begun on IV antibiotics and the sepsis bundle has been initiated. Orthopedics will be consulted. Sliding scale insulin coverage has been initiated. Exam - Constitutional Vitals: Period Temp Pulse Resp BP Sys/Salcedo Pulse Ox Last 24 Hr 99.1 F-99.1 F 111-121 18-18 105-106/63-70 100-100 Results - Labs CBC & BMP: 11/30/16 15:06 11/30/16 15:06
[2016-11-30 15:42] LABS: Albumin 2.1 G/DL (3.4-5.0); Bilirubin,Total 0.5 MG/DL (0.2-1.0); Calcium 8.5 MG/DL (8.5-10.1); Lactic Acid 1.8 MMOL/L (0.4-2.0); Osmolality,Calculated 266.1 MOS/KG (273-304); Potassium 3.2 MMOL/L (3.5-5.1)
[2016-11-30 15:49] LABS: INR 1.1
[2016-11-30] MEDS ORDERED: DEXTROSE 50% 25 GM/50 ML SYRINGE IV PRN (15:59)
[2016-11-30] MEDS ORDERED: INSULIN REGULAR 100 UNIT/ML IV STA (15:59)
[2016-11-30] MEDS ORDERED: GLUCAGON 1 MG VIAL IM PRN (15:59)
[2016-11-30 16:04] LABS: Band Neutrophils 4 % (0-10); Eosinophils 1 % (0-10); Lymphocytes 8 % (20-55); Platelet Estimate Increased; Segmented Neutrophils 79 % (50-85); Total Cells Counted 100
[2016-11-30] MEDS ORDERED: POTASSIUM CHLORIDE RIDER 10 MEQ in PREMIX 1 EACH IV PRN (16:19)
[2016-11-30] MEDS ORDERED: MAGNESIUM SULF RIDER 4 GM in PREMIX 1 EACH IV PRN (16:19)
[2016-11-30] MEDS ORDERED: MAGNESIUM SULF RIDER 2 GM in PREMIX 1 EACH IV PRN (16:19)
[2016-11-30] MEDS: INSULIN REGULAR 100 UNIT/ML SUBCUT SCH ×2 (16:30→21:54)
--- NOTE | 2016-11-30 16:42 | Ultrasound Report ---
History: Left ankle swelling. Recent left ankle surgery Date: 11/30/2016 Study: Left lower extremity color-flow venous Doppler study Comparison exam: No recent similar Color Doppler, wave form analysis, and compression analysis of the deep veins of the left lower extremity from the common femoral vein level through the popliteal vein level shows that the veins are readily compressible. There is no abnormal intraluminal material to suggest thrombus. Waveform analysis is unremarkable. Ultrasound images were captured and archived Impression: No evidence of DVT on the left PROCEDURE INTERPRETED AT [facility] DEPARTMENT OF RADIOLOGY Final Report Signed by: Dr. Ana Laura Smith
[2016-11-30] MEDS: ENOXAPARIN 40 MG/0.4 ML SYRINGE SUBCUT SCH (16:45)
[2016-11-30] MEDS ORDERED: VANCOMYCIN INJ 1,000 MG in SODIUM CHLORIDE 0.9% 250 ML IV SCH (17:00)
[2016-11-30] MEDS: SODIUM CHLORIDE 0.9% 1,000 ML IV SCH (17:53)
[2016-11-30] MEDS: PIPERACILLIN/TAZOBACTAM 3,375 MG in SODIUM CHLORIDE 0.9% 100 ML IV SCH (18:44)
[2016-11-30] MEDS: DOCUSATE SODIUM 100 MG CAPSULE PO SCH (21:47)
[2016-12-01] MEDS: PIPERACILLIN/TAZOBACTAM 3,375 MG in SODIUM CHLORIDE 0.9% 100 ML IV SCH ×3 (02:34→17:40)
[2016-12-01 05:44] LABS: Basophils % 0.2 % (0.0-0.8); Eosinophils # 0.6 10*3/uL (0.0-0.87); Eosinophils % 4.2 % (0.00-10.9); Hematocrit 25.2 VOL% (35.7-47.0); Hemoglobin 8.8 GM/DL (12.0-16.0); Lymphocytes # 1.6 10*3/uL (1.4-4.0); Lymphocytes % 10.7 % (21.3-54.2); Mean Corpuscular HGB Conc 34.9 GM/DL (32-36); Mean Corpuscular Hemoglobin 28 PG (27-34); Mean Corpuscular Volume 79.7 FL (87-102); Mean Platelet Volume 10.2 FL (9.6-12.0); Monocytes # 1.5 10*3/uL (0.11-0.8); Monocytes % 9.7 % (1.7-12.7); Neutrophils # 11.1 10*3/uL (1.4-7.4); Neutrophils % 73.2 % (38.7-73.9); Platelet Count 612 T/CUMM (130-400); Red Blood Count 3.16 MC/CUMM (3.8-5.5); White Blood Count 15.2 T/CUMM (4-12)
[2016-12-01 06:24] LABS: Band Neutrophils 5 % (0-10); Eosinophils 2 % (0-10); Hypochromasia 1+; Lymphocytes 7 % (20-55); Platelet Estimate Increased; Polychromasia Slight; Segmented Neutrophils 82 % (50-85); Target Cells Slight; Total Cells Counted 100
[2016-12-01 06:53] LABS: Albumin 1.7 G/DL (3.4-5.0); Bilirubin,Total 0.9 MG/DL (0.2-1.0); Calcium 8.2 MG/DL (8.5-10.1); Osmolality,Calculated 258.1 MOS/KG (273-304); Phosphorous 3.6 MG/DL (2.5-4.9); Potassium 3.1 MMOL/L (3.5-5.1)
[2016-12-01] MEDS ORDERED: VANCOMYCIN INJ 1,000 MG in SODIUM CHLORIDE 0.9% 250 ML IV SCH (08:00)
--- NOTE | 2016-12-01 09:18 | Event Note ---
I was asked to see Ms. Gautam for amputation by Dr. Dela Cruz. There is Dain has an infected ankle with recent repair of a Charcot deformity. This is infected and appears unsalvageable. I discussed this with Dr. Dela Cruz he feels that she needs below-knee amputation. I am in agreement. I discussed this with Ms. Reeves and she is considering this. I have offered to do amputation today but she wants to discuss this with her family and would prefer to do this tomorrow. Procedure and risks were outlined in great detail including infection , bleeding, pain, chronic pain, phantom pain, wound healing problems, flap necrosis, etc. I do believe that the benefit of amputation will be that we will allow her to get on with her life. I do not think that her ankle will never heal. This was discussed with the patient and also with Dr. Dela Cruz and all are in agreement.
[2016-12-01] MEDS ORDERED: DEXTROSE 50% 25 GM/50 ML SYRINGE IV PRN (09:27)
[2016-12-01] MEDS ORDERED: GLUCAGON 1 MG VIAL IM PRN (09:27)
[2016-12-01] MEDS: INSULIN REGULAR 100 UNIT/ML SUBCUT SCH ×4 (09:28→20:31)
[2016-12-01] MEDS: SODIUM CHLORIDE 0.9% 1,000 ML IV SCH ×4 (09:28→16:51)
[2016-12-01] MEDS: PANTOPRAZOLE 40 MG TABLET PO SCH (09:30)
[2016-12-01] MEDS: DOCUSATE SODIUM 100 MG CAPSULE PO SCH ×2 (09:30→20:31)
[2016-12-01] MEDS: VANCOMYCIN INJ 1,000 MG in SODIUM CHLORIDE 0.9% 250 ML IV SCH ×2 (10:58→13:13)
--- NOTE | 2016-12-01 11:20 | Hospitalist Progress Note ---
Assessment and Plan (1) Diabetic ulcer of left ankle Status: Acute Assessment and plan: Plan for BKA tomorrow. Continue IV abx Current Visit: No (2) Uncontrolled diabetes mellitus Status: Chronic Current Visit: No Qualifiers: Diabetes mellitus type: type 2 Diabetes mellitus complication status: with skin complications Diabetes mellitus complication detail: with foot ulcer Diabetes mellitus skilled nursing insulin use: without credit portfolio manager use Qualified Code( s): E11.621 - Type 2 diabetes mellitus with foot ulcer; E11.65 - Type 2 diabetes mellitus with hyperglycemia; L97.509 - Non-pressure chronic ulcer of other part of unspecified foot with unspecified severity (3) Hypertension Status: Chronic Current Visit: No Qualifiers: Hypertension type: essential hypertension Qualified Code(s): I10 - Essential (primary) hypertension (4) Post op infection Status: Acute Assessment and plan: Continue Abx Current Visit: Yes Qualifiers: Encounter type: initial encounter Qualified Code(s): T81.4XXA - Infection following a procedure, initial encounter (5) SIRS (systemic inflammatory response syndrome) Status: Acute Current Visit: Yes (6) Hyponatremia Status: Acute Assessment and plan: continue NS IVF Current Visit: Yes (7) Hypokalemia Status: Acute Assessment and plan: replacement ordered Current Visit: Yes Hospitalist: Subjective Interval history: Patient seen and examined. No acute events overnight. Case discussed with nursing staff. Labs reviewed. Plan for operative intervention (BKA) tomorrow. Exam - Constitutional Vitals: Period Temp Pulse Resp BP Sys/Salcedo Pulse Ox Last 24 Hr 97.0 F-99.4 F 89-121 14-19 87-116/52-70 96-100 Exam: Constitutional System: No distress. No tremulousness. Head: Normocephalic, atraumatic. Ears, Nose and Throat System: No pain or tenderness. No epistaxis or discharge Eyes System: Pupils equal, round, and reactive. Extraocular muscles intact. Neck: Supple, without adenopathy, No jugular venous distention. Respiratory System: Chest clear to auscultation. Cardiovascular System: Heart with regular rate and rhythm. No murmur. GI System: Abdomen soft, nontender. Normo active bowel sounds present. Musculoskeletal System: Left lower extremity wrapped with gauze and ANGIE wrap; with significant swelling and foul-smelling drainage. Normal Cap refill Neurological System: No discernable sensory deficit. No aphasia Psychiatric System: Conversation is rational Results - Labs CBC & BMP: 12/01/16 05:23 12/01/16 05:23 Lab Results: I have reviewed the past 24 hour labs
--- NOTE | 2016-12-01 11:58 | Orthopedic Progress Note ---
Orthopedics - Subjective Interval history: Rafi Marquez was admitted yesterday with postoperative wound infection and sepsis. She underwent a tibiocalcaneal fusion for an unstable ankle and hindfoot secondary to Charcot arthropathy. Ms. Marquez has been noncompliant through most of her treatment course. She states that she has fallen 3 times since last Thursday. She did not notify the office. She was seen yesterday and transferred from [facility] with a postoperative wound infection. Exam today shows that she has not splinted. Her foot and ankle are swollen with copious amount of seropurulent fluid draining from her lateral incision. She has gross instability of her tibiocalcaneal arthrodesis and at her midfoot. Her medial, plantar and proximal interlocking incisions are well approximated and healing. 3 views ankle x-rays show that the talar head screws of pulled out from the talar head. She has a retrograde intramedullary nail. She has moderate swath soft tissue swelling. Impression: Postoperative wound infection. Noncompliance. Hardware failure. Plan: Given the severity of the postoperative infection, noncompliance and failure of fixation, I feel that Ms. Marquez has failed an attempt at salvage and would benefit from an amputation as opposed to prolonged antibiotics and multiple surgeries. I have discussed her case with Dr. Janae LUGO to be seen her in the past. I saw Ms. Marquez earlier today and this is a late entry. Exam - Constitutional Vitals: Period Temp Pulse Resp BP Sys/Salcedo Pulse Ox Last 24 Hr 97.0 F-99.4 F 89-121 14-19 87-116/52-70 96-100 Results - Labs CBC & BMP: 12/01/16 05:23 12/01/16 05:23
[2016-12-01] MEDS: ENOXAPARIN 40 MG/0.4 ML SYRINGE SUBCUT SCH (14:41)
[2016-12-01] MEDS: POTASSIUM CHLORIDE 20 MEQ TABLET PO PRN ×4 (15:45→22:35)
--- NOTE | 2016-12-01 21:32 | ECHO Report ---
JimmyRafi landaverde 12/01/2016 Exam Date: 13:28 Referring Physician: Debby Okeefe Technologist: SAMUEL Age: 31 Ht (in): 64 Wt (lb): 134 FExam Location: [facility] Gender: Echo [id number]: septic shock, infected Rt. ankle, Indications:yperglycemia BP: 105 / 65 HR: 96 SinusRhythm: Technical Quality: IMPRESSIONS Normal left ventricular cavity size, no hypertrophy. Estimated left ventricular ejection fraction 60%, normal systolic function. Normal diastolic function. No significant valvular abnormalities. MEASUREMENTS (Male / Female) Normal Values 2D ECHO LV Diastolic Diameter PLAX 3.8 cm 4.2 - 5.9 / 3.9 - 5.3 cm LV Systolic Diameter PLAX 1.5 cm LV Fractional Shortening PLAX 59.9 % IVS Diastolic Thickness 1.1 cm 0.6 - 1.0 / 0.6 - 0.9 cm LVPW Diastolic Thickness 1.0 cm 0.6 - 1.0 / 0.6 - 0.9 cm Aortic Root Diameter 2.2 cm LA Systolic Diameter LX 3.1 cm 3.0 - 4.0 / 2.7 - 3.8 cm DOPPLER TR Peak Velocity 167.0 cm/s TR Peak Gradient 11.2 mmHg FINDINGS Left Ventricle Normal left ventricular cavity size, no hypertrophy. Estimated left ventricular ejection fraction 60%, normal systolic function. Normal diastolic function. Right Ventricle Normal right ventricular size. Right Atrium Normal right atrial size. Left Atrium Normal left atrial size. Mitral Valve Morphologically normal mitral valve. Aortic Valve The aortic valve is trileaflet, delicate and has normal motion. Tricuspid Valve Morphologically normal tricuspid valve. Trace tricuspid valve regurgitation. Tricuspid regurgitation velocities suggest a PAP of 11.2 mmHg + RAP. Pulmonic Valve Morphologically normal pulmonic valve. Pericardium No pericardial effusion. Aorta Normal size aortic root and proximal ascending aorta. Julio César Byrnes (Electronically Signed) 01 December 2016 Final Date: 21:08
[2016-12-02] MEDS: VANCOMYCIN INJ 1,000 MG in SODIUM CHLORIDE 0.9% 250 ML IV SCH ×2 (00:33→14:22)
[2016-12-02] MEDS: PIPERACILLIN/TAZOBACTAM 3,375 MG in SODIUM CHLORIDE 0.9% 100 ML IV SCH ×3 (03:00→18:49)
[2016-12-02] MEDS: SODIUM CHLORIDE 0.9% 1,000 ML IV SCH ×3 (05:54→17:29)
[2016-12-02 06:31] LABS: Basophils # 0.1 10*3/uL (0.0-0.2); Basophils % 0.4 % (0.0-0.8); Eosinophils # 0.6 10*3/uL (0.0-0.87); Eosinophils % 4.9 % (0.00-10.9); Hematocrit 22.2 VOL% (35.7-47.0); Immature Granulocytes % 3.8 %; Immature Granulocytes Absolute 0.49 #; Lymphocytes # 2.7 10*3/uL (1.4-4.0); Lymphocytes % 20.5 % (21.3-54.2); Mean Corpuscular HGB Conc 33.8 GM/DL (32-36); Mean Corpuscular Hemoglobin 28 PG (27-34); Mean Corpuscular Volume 82.5 FL (87-102); Mean Platelet Volume 10.3 FL (9.6-12.0); Monocytes # 1.3 10*3/uL (0.11-0.8); Monocytes % 10.1 % (1.7-12.7); Neutrophils # 7.9 10*3/uL (1.4-7.4); Neutrophils % 60.3 % (38.7-73.9); Platelet Count 577 T/CUMM (130-400); Red Blood Count 2.69 MC/CUMM (3.8-5.5); Red Cell Distribution Width 13.3 % (9.3-17.3); White Blood Count 13.1 T/CUMM (4-12)
[2016-12-02 06:33] LABS: Hemoglobin 7.5 GM/DL (12.0-16.0)
[2016-12-02 06:46] LABS: Band Neutrophils 2 % (0-10); Eosinophils 3 % (0-10); Hypochromasia 1+; Lymphocytes 13 % (20-55); Microcytosis Slight; Platelet Estimate Adequate; Segmented Neutrophils 75 % (50-85); Total Cells Counted 100
[2016-12-02 06:57] LABS: Calcium 7.6 MG/DL (8.5-10.1); Magnesium 2.1 MG/DL (1.8-2.4); Osmolality,Calculated 266.5 MOS/KG (273-304); Potassium 4.4 MMOL/L (3.5-5.1)
--- NOTE | 2016-12-02 07:03 | Event Note ---
We opened up her wound yesterday at the bedside to allow for drainage and hopefully some source control prior to doing below-knee amputation. Patient now is wanting to proceed with below-knee amputation tomorrow. Procedure and risks have once again been discussed in detail with her
[2016-12-02] MEDS: DOCUSATE SODIUM 100 MG CAPSULE PO SCH ×2 (08:15→22:24)
[2016-12-02] MEDS: PANTOPRAZOLE 40 MG TABLET PO SCH (08:15)
[2016-12-02] MEDS: INSULIN REGULAR 100 UNIT/ML SUBCUT SCH ×4 (08:15→22:24)
[2016-12-02] MEDS ORDERED: SODIUM CHLORIDE 0.9% 250 ML IV PRN (10:39)
--- NOTE | 2016-12-02 10:43 | Hospitalist Progress Note ---
Assessment and Plan (1) Bacteremia Status: Acute Assessment and plan: Gram-positive cocci bacteremia likely MRSA as evidenced by the cultures from her ankle. Vancomycin sensitivity is MACKENZIE of 1. Will consult infectious disease. I added Cipro due to its sensitivity. She is currently on vancomycin , Zosyn, and Cipro (started today) Current Visit: Yes (2) Diabetic ulcer of left ankle Status: Acute Assessment and plan: Plan for BKA tomorrow. Continue IV abx. Culture positive for MRSA Current Visit: No (3) Uncontrolled diabetes mellitus Status: Chronic Assessment and plan: Resume oral agents. Current Visit: No Qualifiers: Diabetes mellitus type: type 2 Diabetes mellitus complication status: with skin complications Diabetes mellitus complication detail: with foot ulcer Diabetes mellitus nursing home insulin use: without nursing home use Qualified Code( s): E11.621 - Type 2 diabetes mellitus with foot ulcer; E11.65 - Type 2 diabetes mellitus with hyperglycemia; L97.509 - Non-pressure chronic ulcer of other part of unspecified foot with unspecified severity (4) Hypertension Status: Chronic Current Visit: Yes Qualifiers: Hypertension type: essential hypertension Qualified Code(s): I10 - Essential (primary) hypertension (5) Post op infection Status: Acute Assessment and plan: Continue Abx Current Visit: Yes Qualifiers: Encounter type: initial encounter Qualified Code(s): T81.4XXA - Infection following a procedure, initial encounter (6) SIRS (systemic inflammatory response syndrome) Status: Acute Current Visit: Yes (7) Hyponatremia Status: Acute Assessment and plan: continue NS IVF Current Visit: Yes (8) Hypokalemia Status: Acute Assessment and plan: replacement ordered Current Visit: Yes Hospitalist: Subjective Interval history: Patient seen and examined. No acute events overnight. Case discussed with nursing staff. Labs reviewed. Blood cultures show gram-positive cocci. Wound culture with MRSA. The patient is likely bacteremic with MRSA. Sensitivities reviewed. Exam - Constitutional Vitals: Period Temp Pulse Resp BP Sys/Salcedo Pulse Ox Last 24 Hr 97.4 F-100 F 73-100 18-20 87-120/48-72 95-99 Exam: Constitutional System: No distress. No tremulousness. Head: Normocephalic, atraumatic. Ears, Nose and Throat System: No pain or tenderness. No epistaxis or discharge Eyes System: Pupils equal, round, and reactive. Extraocular muscles intact. Neck: Supple, without adenopathy, No jugular venous distention. Respiratory System: Chest clear to auscultation. Cardiovascular System: Heart with regular rate and rhythm. No murmur. GI System: Abdomen soft, nontender. Normo active bowel sounds present. Musculoskeletal System: Left lower extremity wrapped with gauze and ANGIE wrap; with significant swelling and foul-smelling drainage. Normal Cap refill Neurological System: No discernable sensory deficit. No aphasia Psychiatric System: Conversation is rational Results - Labs CBC & BMP: 12/02/16 05:34 12/02/16 05:34 Lab Results: I have reviewed the past 24 hour labs
[2016-12-02] MEDS ORDERED: CIPROFLOXACIN INJ 400 MG in PREMIX 1 EACH IV SCH (11:00)
--- NOTE | 2016-12-02 11:31 | Physician Query Form ---
CLICK EDIT DOCUMENT TO SELECT QUERY ANSWER --> OK --> SIGN Noy Shaffer RN Clinical Head Of Human Resources W) [phone] (f) [phone] [email or web address]: Make your selection(s) from the choices in EACH section by typing an "x" and enter comments in the comment section. Please use your independent medical judgment in providing your response. This request does not imply that any particular answer is desired or expected. CLINICAL INDICATORS: (Providers should not edit this section) Based on lab results of creatinine on admission of 1.40 with a GFR of 47 and decreased to 0.90. Pt. treated with IV fluids of Normal Saline. Clarify which of the following most accurately represents the patient's renal status: (X ) Acute kidney injury (non-traumatic) ( ) Acute renal failure ( ) Acute renal failure with underlying Chronic Kidney Disease (CKD) - please provide stage below ( ) CKD - please provide stage below ( ) Other, please specify: ( ) Clinically unable to determine Chronic Kidney Disease Stages Source: National Kidney Disease Foundation ( ) Stage I (eGFR > or = 90) ( ) Stage II (eGFR 60 - 89) ( ) Stage III (eGFR 30 - 59) ( ) Stage IV (eGFR 15 - 29) ( ) Stage V (eGFR < 15 or dialysis) COMMENTS: PLEASE ALSO DOCUMENT RESPONSE IN PROGRESS NOTES AND/OR DISCHARGE SUMMARY Use of terms such as suspected, likely, or probable (associated with a specific diagnosis that is being evaluated, monitored, or treated as if it exists) are acceptable and can be restated in the discharge summary if not ruled out. MTDD
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
[2016-12-02] MEDS: glipiZIDE 5 MG TABLET PO SCH (16:36)
[2016-12-02] MEDS: ENOXAPARIN 40 MG/0.4 ML SYRINGE SUBCUT SCH ×2 (16:36→16:39)
--- NOTE | 2016-12-02 16:41 | Event Note ---
Comfortable. She has no questions. She understands the amputation is best. Continue to follow.
[2016-12-02] MEDS ORDERED: SODIUM CHLORIDE 0.9% 500 ML IV ONE (16:58)
[2016-12-03] MEDS: SODIUM CHLORIDE 0.9% 1,000 ML IV SCH ×2 (01:40→15:18)
[2016-12-03] MEDS: VANCOMYCIN INJ 1,000 MG in SODIUM CHLORIDE 0.9% 250 ML IV SCH ×2 (01:41→15:02)
[2016-12-03 02:43] LABS: Hematocrit 28.6 VOL% (35.7-47.0); Hemoglobin 9.6 GM/DL (12.0-16.0)
[2016-12-03] MEDS: PIPERACILLIN/TAZOBACTAM 3,375 MG in SODIUM CHLORIDE 0.9% 100 ML IV SCH ×3 (04:59→19:46)
[2016-12-03] MEDS: glipiZIDE 5 MG TABLET PO SCH ×2 (08:00→16:28)
[2016-12-03] MEDS: INSULIN REGULAR 100 UNIT/ML SUBCUT SCH ×4 (08:00→20:44)
[2016-12-03] MEDS: DOCUSATE SODIUM 100 MG CAPSULE PO SCH ×2 (08:01→20:44)
[2016-12-03] MEDS: PANTOPRAZOLE 40 MG TABLET PO SCH (08:01)
--- NOTE | 2016-12-03 11:31 | Hospitalist Progress Note ---
Assessment and Plan (1) Bacteremia Status: Acute Assessment and plan: Gram-positive cocci bacteremia with MRSA as evidenced by the cultures from her ankle. She is currently on vancomycin, Zosyn. Current Visit: Yes (2) Diabetic ulcer of left ankle Status: Acute Assessment and plan: Plan for BKA today Continue IV abx. Culture positive for MRSA Current Visit: No (3) Uncontrolled diabetes mellitus Status: Chronic Assessment and plan: Resume oral agents. Current Visit: No Qualifiers: Diabetes mellitus type: type 2 Diabetes mellitus complication status: with skin complications Diabetes mellitus complication detail: with foot ulcer Diabetes mellitus watermelon harvesting supervisor insulin use: without prison use Qualified Code( s): E11.621 - Type 2 diabetes mellitus with foot ulcer; E11.65 - Type 2 diabetes mellitus with hyperglycemia; L97.509 - Non-pressure chronic ulcer of other part of unspecified foot with unspecified severity (4) Hypertension Status: Chronic Current Visit: Yes Qualifiers: Hypertension type: essential hypertension Qualified Code(s): I10 - Essential (primary) hypertension (5) Post op infection Status: Acute Assessment and plan: Continue Abx Current Visit: Yes Qualifiers: Encounter type: initial encounter Qualified Code(s): T81.4XXA - Infection following a procedure, initial encounter (6) SIRS (systemic inflammatory response syndrome) Status: Acute Current Visit: Yes (7) Hyponatremia Status: Acute Assessment and plan: Improving with IV fluids, continue NS IVF Current Visit: Yes (8) Hypokalemia Status: Resolved Assessment and plan: replacement ordered Current Visit: Yes Hospitalist: Subjective Interval history: Patient seen and examined. No acute events overnight. Case discussed with nursing staff. Labs reviewed. Patient has MRSA sepsis and bacteremia. On Zosyn and vancomycin. Surgery and infectious disease following. Below knee amputation planned for today. She had periods of hypotension yesterday requiring IV fluid boluses. Blood pressure has improved Exam - Constitutional Vitals: Period Temp Pulse Resp BP Sys/Salcedo Pulse Ox Last 24 Hr 97.3 F-98.5 F 73-90 18-20 87-116/47-73 97-100 Exam: Constitutional System: No distress. No tremulousness. Head: Normocephalic, atraumatic. Ears, Nose and Throat System: No pain or tenderness. No epistaxis or discharge Eyes System: Pupils equal, round, and reactive. Extraocular muscles intact. Neck: Supple, without adenopathy, No jugular venous distention. Respiratory System: Chest clear to auscultation. Cardiovascular System: Heart with regular rate and rhythm. No murmur. GI System: Abdomen soft, nontender. Normo active bowel sounds present. Musculoskeletal System: Left lower extremity wrapped with gauze and ANGIE wrap; with significant swelling and foul-smelling drainage. Normal Cap refill Neurological System: No discernable sensory deficit. No aphasia Psychiatric System: Conversation is rational Results - Labs CBC & BMP: 12/03/16 02:30 12/02/16 05:34 Lab Results: I have reviewed the past 24 hour labs
--- NOTE | 2016-12-03 12:24 | Event Note ---
Ms Marquez was seen this am. She is on the schedule for a below-knee amputation later today by Dr. Janae LUGO. She has no questions and no complaints.
--- NOTE | 2016-12-03 12:27 | Infectious Disease Progress ---
Assessment and Plan (1) Bacteremia Status: Acute Assessment and plan: MRSA septicemia with source being septic left ankle. The TTE is negative for endocarditis; findings discussed with Dr. Gutierres and he thinks it is reasonable to do JAZZ. Recommendations: 1. Continue vancomycin therapy. Monitor kidney function very closely on vancomycin, and also monitor vancomycin trough levels. Goal trough level 15-20. 2. Cardiology consult for JAZZ 3. Repeat blood cultures after her amputation, so tomorrow 4. Patient will need antibiotics intravenously for at least 4 versus 6 weeks, depending on the results of the JAZZ Current Visit: Yes (2) Leukocytosis Status: Acute Assessment and plan: Most likely due to septic left ankle with the septicemia. Current Visit: Yes (3) Sepsis Status: Acute Current Visit: Yes (4) Hypertension Status: Chronic Current Visit: Yes Qualifiers: Hypertension type: essential hypertension Qualified Code(s): I10 - Essential (primary) hypertension (5) Swelling of joint, ankle, left Status: Acute Assessment and plan: Clinically patient has septic left ankle joint associated with presence of hardware. The joint is nonsalvageable unfortunately. Recommendations: BKA pending for today. Will stop Zosyn after 1-2 days. Continue vancomycin therapy as above. Current Visit: No (6) Uncontrolled diabetes mellitus Status: Chronic Assessment and plan: Severely uncontrolled diabetes with an A1c of 10%. 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 Awaiting surgery today, left BKA. Infectious Disease Exam (PN) - Constitutional Vitals: Temp Pulse Resp BP Pulse Ox 97.3 F L 76 18 105/73 99 12/03/16 11:02 12/03/16 11:02 12/03/16 11:02 12/03/16 11:02 12/03/16 11:02 General appearance: normal weight, no acute distress Exam: General appearance: no acute distress - Eye Eye exam: Present: EOMI. no icterus Pupils: Present: NICCI - ENT ENT exam: no oral exudates - Respiratory Respiratory exam: vesicular BS, no crepitations or wheezes - Cardiovascular Cardiovascular exam: regular rate and rhythm, no murmurs - GI/Abdominal GI/Abdominal exam: normal bowel sounds, soft, non-tender, no organomegaly or mass - Extremities Exam Extremities exam: no edema, left foot and ankle bandaged - Skin Skin exam: no rash Results - Labs CBC & BMP: 12/03/16 02:30 12/02/16 05:34 Lab Results: I have reviewed the past 24 hour labs (MRSA from 2 of 2 sets of blood cultures)
[2016-12-03] MEDS ORDERED: KETOROLAC 30 MG/1 ML VIAL ONE (12:35)
[2016-12-03] MEDS ORDERED: LIDOCAINE 2% 5 ML VIAL ONE (12:35)
[2016-12-03] MEDS ORDERED: ONDANSETRON 4 MG/2 ML VIAL ONE ×2 (12:35→14:10)
[2016-12-03] MEDS ORDERED: PHENYLEPHRINE 1 MG/10 ML SYRINGE IV ONE (12:35)
[2016-12-03] MEDS ORDERED: PROPOFOL 200 MG/20 ML VIAL IV ONE (12:35)
--- NOTE | 2016-12-03 14:05 | Operative Note ---
Date of procedure: 12/03/16 Pre-op diagnosis: Septic arthropathy left ankle Post-op diagnosis: same Procedure: Left below-knee amputation Findings and technique: After informed consent was obtained patient was brought the operating room and placed in supine position. After successful induction of general anesthesia the patient's left lower extremity was prepped and draped in usual sterile fashion. Transverse incision was made about 8 cm below the tibial tuberosity. Posterior myocutaneous flap was created using a #10 blade through the skin and subcutaneous tissue. The saphenous vein was divided and ligated. The tibia was sharply dissected out by dividing the anterior tibial musculature the anterior tibial vessels were clamped and divided and tied. The posterior tibial vessels were identified along with the peroneal vessels. The tibia was divided with a wire saw beveling anteriorly. The fibula was transected about a centimeter proximal to the level of the tibia. Posterior musculature was divided after the posterior tibial vessels were clamped and secured with suture ligature. This lower extremity was removed and meticulous hemostasis obtained in the soleus and gastrocnemius muscle. The bone was filed smooth and the wound irrigated and closed the deep layer of interrupted 0 Vicryl suture and the superficial flap fascia was approximated with interrupted Vicryl suture as well. It was closed with skin clips and a bulky dressing applied. Anesthesia: GETA Surgeon / Physician: Abdoulaye Cardoso III. Estimated blood loss: other (200 mL) Specimens: other (Lower extremity) Condition: stable Disposition: PACU Results - Labs CBC & BMP: 12/03/16 02:30 12/02/16 05:34 Discharge Plan - Discharge Medications No Action metFORMIN [Glucophage] 500 mg PO BID glipiZIDE [Glucotrol] 5 mg PO BIDAC #60 tablet - Follow Up or Referral - Forms/Instructions
[2016-12-03] MEDS ORDERED: NALOXONE 0.4 MG/ML VIAL IV PRN (14:06)
--- NOTE | 2016-12-03 14:07 | Anesthesia Post-Op ---
Anesthesia Post OP - Post Ansesthetic Evaluation Patient seen in post op: Yes Resp: within normal limits CV: within normal limits Mental: within normal limits Temp: within normal limits Ccdy-Vt-Juqxjrand: within normal limits Nausea and Vomiting: within normal limits Pain: within normal limits
[2016-12-03] MEDS ORDERED: HYDROmorphone 2 MG/1 ML VIAL ONE (14:09)
[2016-12-03] MEDS ORDERED: SEVOFLURANE 1 UNIT/15 MINUTE INH ONE (14:12)
[2016-12-03] MEDS ORDERED: fentaNYL 100 MCG/2 ML VIAL ONE ×2 (14:12→14:13)
[2016-12-03] MEDS ORDERED: MIDAZOLAM 2 MG/2 ML VIAL ONE (14:13)
[2016-12-03] MEDS ORDERED: ACETAMINOPHEN 1,000 MG/100 ML VIAL IV ONE (14:13)
[2016-12-03] MEDS ORDERED: SODIUM CHLORIDE 0.9% 1,000 ML IV ONE (14:14)
[2016-12-03] MEDS ORDERED: ONDANSETRON 4 MG/2 ML VIAL IV PRN (14:16)
[2016-12-03] MEDS ORDERED: HYDROmorphone 2 MG/1 ML VIAL IV PRN (14:16)
[2016-12-03] MEDS ORDERED: MORPHINE PCA 30 MG/30 ML SYRINGE IV ONE (14:26)
[2016-12-03] MEDS: MORPHINE PCA 30 MG/30 ML SYRINGE IV SCH (14:28)
[2016-12-03] MEDS: ENOXAPARIN 40 MG/0.4 ML SYRINGE SUBCUT SCH (16:29)
[2016-12-04] MEDS: SODIUM CHLORIDE 0.9% 1,000 ML IV SCH ×4 (01:10→21:58)
[2016-12-04] MEDS: MORPHINE PCA 30 MG/30 ML SYRINGE IV SCH ×4 (01:26→18:55)
[2016-12-04] MEDS: VANCOMYCIN INJ 1,000 MG in SODIUM CHLORIDE 0.9% 250 ML IV SCH ×2 (02:13→15:42)
[2016-12-04] MEDS: PIPERACILLIN/TAZOBACTAM 3,375 MG in SODIUM CHLORIDE 0.9% 100 ML IV SCH ×2 (04:25→11:21)
[2016-12-04 05:34] LABS: Basophils % 0.2 % (0.0-0.8); Eosinophils # 0.3 10*3/uL (0.0-0.87); Eosinophils % 3.8 % (0.00-10.9); Hematocrit 27.3 VOL% (35.7-47.0); Hemoglobin 8.9 GM/DL (12.0-16.0); Immature Granulocytes % 3.9 %; Immature Granulocytes Absolute 0.33 #; Lymphocytes # 1.8 10*3/uL (1.4-4.0); Lymphocytes % 21.5 % (21.3-54.2); Mean Corpuscular HGB Conc 32.6 GM/DL (32-36); Mean Corpuscular Hemoglobin 28 PG (27-34); Mean Corpuscular Volume 85.3 FL (87-102); Mean Platelet Volume 10.2 FL (9.6-12.0); Monocytes # 0.6 10*3/uL (0.11-0.8); Monocytes % 7.3 % (1.7-12.7); Neutrophils # 5.4 10*3/uL (1.4-7.4); Neutrophils % 63.3 % (38.7-73.9); Platelet Count 562 T/CUMM (130-400); Red Cell Distribution Width 14.5 % (9.3-17.3); White Blood Count 8.5 T/CUMM (4-12)
[2016-12-04 06:10] LABS: Calcium 6.6 MG/DL (8.5-10.1); Osmolality,Calculated 275.1 MOS/KG (273-304); Potassium 4.1 MMOL/L (3.5-5.1)
--- NOTE | 2016-12-04 06:33 | Event Note ---
She is afebrile with stable vital signs. Her dressing is dry. She is awake and alert and says that she has had pain is not completely relieved with a BIOLOGICAL SCIENCES INSTRUCTOR pump. I suspect that she has some tolerance and hypersensitivity to pain related to her previous narcotic usage. All of this was discussed with the patient and she felt comfortable with this and understands that she may not get completely pain-free in the next couple of days.
--- NOTE | 2016-12-04 07:32 | Event Note ---
Ms Marquez feels like a huge weight has been lifted. LLE stump is dressed. Will sign off.
[2016-12-04] MEDS: glipiZIDE 5 MG TABLET PO SCH ×2 (08:52→16:04)
[2016-12-04] MEDS: PANTOPRAZOLE 40 MG TABLET PO SCH (08:52)
[2016-12-04] MEDS: DOCUSATE SODIUM 100 MG CAPSULE PO SCH ×2 (08:52→21:09)
[2016-12-04] MEDS: INSULIN REGULAR 100 UNIT/ML SUBCUT SCH ×4 (08:53→21:09)
--- NOTE | 2016-12-04 09:51 | Cardiology Consult Note ---
Assessment and Plan (1) Cellulitis Status: Acute Assessment and plan: 32-year-old black female, poorly controlled diabetes mellitus, MRSA sepsis due to left ankle fracture, postsurgical infection, now, status post left BKA. -Discussed risks and benefits of evaluation options. We will proceed with a JAZZ , with anesthesia support. N.p.o. for now. She had some breakfast, we may proceed this afternoon, or tomorrow a.m. -Check EKG Current Visit: No (2) Hyperglycemia Status: Acute Current Visit: No (3) Diabetes Status: Acute Current Visit: No Qualifiers: Diabetes mellitus type: type 2 (4) UTI (urinary tract infection) Problem details: Posible GNR-UTI. Status: Acute Current Visit: No (5) NATHANAEL (acute kidney injury) Status: Acute Current Visit: No (6) Bacteremia Status: Acute Current Visit: Yes History of Present Illness - Data of Consult Patient: new to practice Consult date: 12/04/16 Requesting Physician: Shantel Garcia - Consult Narrative Reason for consult: JAZZ History of present illness: Ms. Marquez is a 31 year old BF, with history of poorly controlled diabetes mellitus, diet-controlled hypertension. She had an ankle fracture several weeks ago, for which she underwent surgery and hardware implant, she was unfortunately noncompliant with follow-up and developed wound infection. This progressed to the point, that despite maximum medical management, she underwent amputation recently. She also developed MRSA sepsis. Transthoracic echo showed no large endocardial vegetations. Cardiology input was requested for JAZZ , rule out endocarditis. She is currently afebrile, WBC trended down. She is feeling better, after amputation, her chronic, severe pain improved. No prior history of severe upper GI issues. Transthoracic echo showed normal ejection fraction, no significant valvular issues. No EKG. CC: Selam Bird MD - Home Medications and Allergies Home Medications: Home Medications Medication Instructions Recorded Confirmed Type metFORMIN [Glucophage] 500 mg PO BID 04/01/16 11/30/16 History glipiZIDE [Glucotrol] 5 mg PO BIDAC #60 tablet 09/22/16 11/30/16 Rx Allergies/Adverse Reactions: Allergies Allergy/AdvReac Type Severity Reaction Status Date / Time No Known Allergies Allergy Verified 09/15/16 22:28 12 point system: reviewed and no additional remarkable complaints except as stated Medical,Surgical,& Family Hx - Medical History Cardio: History of: Hypertension Neurology: No history of: Seizures Endocrine: History of: Diabetes Mellitus (NIDDM) Respiratory: No history of: COPD Gastrointestinal: No history of: GERD Musculoskeletal: History of: Musculoskeletal Problems (tibal calcaneal fusion left ankle 11/19/16) Other: Comment Only: Anesthesia Reactions (no family problems) - Surgical History Thoracic Surgeries: Patient denies;: Organ Transplant Abdominal Surgeries: Patient denies: Abdominal Surgery Reproductive Surgeries: Surgical HX of;: Section Orthopedic Surgeries: Surgical HX of;: Orthopedic Surgery (scope left ankle; ORIF LT ANKLE) - Family History Family History: Reports;: Family Diabetes, Family Heart Disease, Family Hypertension, Family Stroke - Social History Smoking Status: Never smoker Frequency of Alcohol Use: None Type of Drug Use: None Physical Examination Vital Signs Temp Pulse Resp BP Pulse Ox 99.1 F 121 H 18 105/70 100 11/30/16 12:19 11/30/16 12:19 11/30/16 12:19 11/30/16 12:19 11/30/16 12:19 General: Present: Appears Well, No Apparent Distress Neck: Present: Supple Neck, No JVD/HJR Cardiac: Present: Regular Rate, Regular Rhythm Lungs: Present: Normal Breath Sounds Neuro: Present: No Lateralizing Findings, Grossly Intact Abdomen: Present: Soft, Active Bowel Sounds, No Masses Skin: Present: Clear, Black, Other (Status post left below-knee amputation. Dressing dry, intact.) Musculoskeletal: Absent: Erythematous Joints, Fluid Collection Extremities: Present: No Clubbing, No Cyanosis, No Edema Result/EKG - Labs CBC & BMP: 12/04/16 03:41 12/04/16 03:41 Lab Results: I have reviewed the past 24 hour labs Labs: Laboratory Results - last 24 hr 12/03/16 12/03/16 12/03/16 02:28 11:10 16:07 WBC RBC Hgb Hct MCV MCH MCHC RDW Plt Count MPV Neut % (Auto) Lymph % (Auto) Kaufman % (Auto) Eos % (Auto) Baso % (Auto) Neut # (Auto) Lymph # (Auto) Kaufman # (Auto) Eos # (Auto) Baso # (Auto) Immature Gran % Nucleated RBC % Immature Gran # Nucleated RBCs # Immature Plt Fraction Sodium Potassium Chloride Carbon Dioxide Anion Gap BUN Creatinine GFR Calculation BUN/Creatinine Ratio Glucose POC Glucose 201 H 149 H Calculated Osmolality Calcium Magnesium Serum , Qual Negative Vancomycin Trough 12/03/16 12/04/16 12/04/16 19:58 00:32 03:41 WBC 8.5 D RBC 3.20 L Hgb 8.9 L Hct 27.3 L MCV 85.3 L MCH 28 MCHC 32.6 RDW 14.5 Plt Count 562 H MPV 10.2 Neut % (Auto) 63.3 Lymph % (Auto) 21.5 Kaufman % (Auto) 7.3 Eos % (Auto) 3.8 Baso % (Auto) 0.2 Neut # (Auto) 5.4 Lymph # (Auto) 1.8 Kaufman # (Auto) 0.6 Eos # (Auto) 0.3 Baso # (Auto) 0.0 Immature Gran % 3.9 Nucleated RBC % 0.0 Immature Gran # 0.33 Nucleated RBCs # 0.00 Immature Plt Fraction 0.0 Sodium Potassium Chloride Carbon Dioxide Anion Gap BUN Creatinine GFR Calculation BUN/Creatinine Ratio Glucose POC Glucose 186 H Calculated Osmolality Calcium Magnesium Serum , Qual Vancomycin Trough 6.8 L 12/04/16 12/04/16 03:41 06:56 WBC RBC Hgb Hct MCV MCH MCHC RDW Plt Count MPV Neut % (Auto) Lymph % (Auto) Kaufman % (Auto) Eos % (Auto) Baso % (Auto) Neut # (Auto) Lymph # (Auto) Kaufman # (Auto) Eos # (Auto) Baso # (Auto) Immature Gran % Nucleated RBC % Immature Gran # Nucleated RBCs # Immature Plt Fraction Sodium 135 L Potassium 4.1 Chloride 102 Carbon Dioxide 26 Anion Gap 11.1 BUN 6 L Creatinine 0.70 GFR Calculation 109 BUN/Creatinine Ratio 8.00 Glucose 239 H POC Glucose 264 H Calculated Osmolality 275.1 Calcium 6.6 L Magnesium 2.0 Serum , Qual Vancomycin Trough
[2016-12-04] MEDS ORDERED: GLUCAGON 1 MG VIAL IM PRN (09:58)
[2016-12-04] MEDS ORDERED: DEXTROSE 50% 25 GM/50 ML VIAL IV PRN (09:58)
--- NOTE | 2016-12-04 11:30 | Pathology Report from [facility] ---
[facility] [place] : [id number] PATIENT NAME : Rafi Martinez ORDERING DR : JOSEFINA GRAHAM III, MD CLINICAL HX: Diabetic ankle wound POST-OP DX: Same SPECIMEN INFO: Left lower leg GROSS DESCRIPTION: Received fresh labeled with the patients name RAFI MARTINEZ and consists of a 31.0 cm left leg below the knee amputation. The skin is brown-arias with a 2.5 x 2.0 cm wound noted along the lateral ankle with edema also seen. There is also a sutured area measuring 3.0 cm at the heel as well as a healing scar measuring 6.5 cm noted along the medial aspect of the proximal foot. Mild arteriosclerotic changes are identified. [place] sections submitted in one cassette. DIAGNOSIS FOR RAFI MARTINEZ: LEFT B-K AMPUTATION: Ulceration with granulation, acute and chronic inflammation, dystrophic calcification; atherosclerotic changes with thrombus. COLLECTED DATE: 12/03/2016 [facility] [place] DATE: 12/04/2016 ELECTRONICALLY SIGNED BY: Marilyn Carty M.D. 12/04/2016 - 10:14:33 [facility]
[2016-12-04] MEDS ORDERED: oxyCODONE/ACETAMINOPHEN 5-325 MG TABLET PO PRN (11:32)
--- NOTE | 2016-12-04 12:37 | Hospitalist Progress Note ---
Assessment and Plan (1) Bacteremia Status: Acute Assessment and plan: Gram-positive cocci bacteremia with MRSA as evidenced by the cultures from her ankle. She is currently on vancomycin, Zosyn. Follow-up JAZZ Arranging transfer to [facility] for continued IV antibiotics. Infectious disease following. Current Visit: Yes (2) Diabetic ulcer of left ankle Status: Acute Assessment and plan: Plan for BKA today Continue IV abx. Culture positive for MRSA Current Visit: No (3) Uncontrolled diabetes mellitus Status: Chronic Assessment and plan: Resume oral agents. Current Visit: No Qualifiers: Diabetes mellitus type: type 2 Diabetes mellitus complication status: with skin complications Diabetes mellitus complication detail: with foot ulcer Diabetes mellitus petroleum terminal plant operator insulin use: without [facility] use Qualified Code( s): E11.621 - Type 2 diabetes mellitus with foot ulcer; E11.65 - Type 2 diabetes mellitus with hyperglycemia; L97.509 - Non-pressure chronic ulcer of other part of unspecified foot with unspecified severity (4) Hypertension Status: Chronic Current Visit: Yes Qualifiers: Hypertension type: essential hypertension Qualified Code(s): I10 - Essential (primary) hypertension (5) Post op infection Status: Acute Assessment and plan: Continue Abx Current Visit: Yes Qualifiers: Encounter type: initial encounter Qualified Code(s): T81.4XXA - Infection following a procedure, initial encounter (6) SIRS (systemic inflammatory response syndrome) Status: Acute Current Visit: Yes (7) Hyponatremia Status: Acute Assessment and plan: Improving with IV fluids, continue NS IVF Current Visit: Yes (8) Hypokalemia Status: Resolved Assessment and plan: replacement ordered Current Visit: Yes Hospitalist: Subjective Interval history: Patient seen and examined. No acute events overnight. Case discussed with nursing staff. Labs reviewed. JAZZ planned for today or tomorrow. Cardiology consult noted. Case discussed with infectious disease. Case management working on arranging transfer to [facility] for continued IV antibiotics for 4-6 weeks. Exam - Constitutional Vitals: Period Temp Pulse Resp BP Sys/Salcedo Pulse Ox Last 24 Hr 96.9 F-99.0 F 68-101 14-22 84-143/50-99 93-100 Exam: Constitutional System: No distress. No tremulousness. Head: Normocephalic, atraumatic. Ears, Nose and Throat System: No pain or tenderness. No epistaxis or discharge Eyes System: Pupils equal, round, and reactive. Extraocular muscles intact. Neck: Supple, without adenopathy, No jugular venous distention. Respiratory System: Chest clear to auscultation. Cardiovascular System: Heart with regular rate and rhythm. No murmur. GI System: Abdomen soft, nontender. Normo active bowel sounds present. Musculoskeletal System: Left lower extremity wrapped with gauze and ANGIE wrap; postop day #1 status post left BKA Neurological System: No discernable sensory deficit. No aphasia Psychiatric System: Conversation is rational Results - Labs CBC & BMP: 12/04/16 03:41 12/04/16 03:41 Lab Results: I have reviewed the past 24 hour labs
--- NOTE | 2016-12-04 13:20 | EKG Report ---
Stationary ECG Study [facility] Test Date: 12/04/2016 1:19:15 PM Pat Name: TR MARTINEZ Department: Room: 334 Gender: F Film Rental Clerk: ROSALIND : [id number] Requested by: Julio César Byrnes Order Number: [id number] Reading MD: SARATH AYOUB Intervals [place] Rate: 86 P: 23 CO: 165 QRS: 70 QRSD: 97 T: 6 QT: 358 QTc: 402 Interpretive Statements SINUS RHYTHM Electronically Signed On 12-04-16 16:55:47 CDT by SARATH AYOUB [email or web address]
[2016-12-04] MEDS: PREGABALIN 50 MG CAPSULE PO SCH ×2 (15:43→21:09)
[2016-12-04] MEDS: ENOXAPARIN 40 MG/0.4 ML SYRINGE SUBCUT SCH (15:44)
--- NOTE | 2016-12-04 16:09 | Infectious Disease Progress ---
Assessment and Plan (1) Bacteremia Status: Acute Assessment and plan: MRSA septicemia with source being septic left ankle. She is status post BKA. Recommendations: 1. Continue vancomycin therapy. Monitor kidney function very closely on vancomycin, and also monitor vancomycin trough levels. Goal trough level 15-20. 2. Patient seen by cardiology and JAZZ pending for tomorrow 3. Repeat blood cultures today 4. Patient will need antibiotics intravenously for at least 4 versus 6 weeks, depending on the results of the JAZZ Current Visit: Yes (2) Leukocytosis Status: Acute Assessment and plan: Most likely due to septic left ankle with the septicemia. Resolved. Current Visit: Yes (3) Sepsis Status: Acute Current Visit: Yes (4) Hypertension Status: Chronic Current Visit: Yes Qualifiers: Hypertension type: essential hypertension Qualified Code(s): I10 - Essential (primary) hypertension (5) Swelling of joint, ankle, left Status: Acute Assessment and plan: Clinically patient has septic left ankle joint associated with presence of hardware. The joint is nonsalvageable unfortunately. Recommendations: BKA done. Will stop Zosyn today. Continue vancomycin therapy as above. Current Visit: No (6) Uncontrolled diabetes mellitus Status: Chronic Assessment and plan: Severely uncontrolled diabetes with an A1c of 10%. Current Visit: No Qualifiers: Diabetes mellitus type: type 2 Diabetes mellitus complication status: with skin complications Diabetes mellitus complication detail: with foot ulcer Diabetes mellitus adjunct faculty for medical terminology insulin use: without shelter use Qualified Code( s): E11.621 - Type 2 diabetes mellitus with foot ulcer; E11.65 - Type 2 diabetes mellitus with hyperglycemia; L97.509 - Non-pressure chronic ulcer of other part of unspecified foot with unspecified severity Infectious Disease - PN: Subj Interval history: Patient had left BKA yesterday. She is feeling much better today. Has not had any fever. Complains to tolerate antibiotics without nausea vomiting or diarrhea. Infectious Disease Exam (PN) - Constitutional Vitals: Temp Pulse Resp BP Pulse Ox 96.9 F L 91 H 18 125/74 98 12/04/16 15:57 12/04/16 15:57 12/04/16 11:42 12/04/16 15:57 12/04/16 15:57 General appearance: normal weight, no acute distress Exam: General appearance: Looks remarkably well - Eye Eye exam: Present: EOMI. no icterus Pupils: Present: NICCI - ENT ENT exam: no oral exudates - Respiratory Respiratory exam: vesicular BS, no crepitations or wheezes - Cardiovascular Cardiovascular exam: regular rate and rhythm, no murmurs - GI/Abdominal GI/Abdominal exam: normal bowel sounds, soft, non-tender, no organomegaly or mass - Extremities Exam Extremities exam: no edema, left BKA stump bandaged - Skin Skin exam: no rash Results - Labs CBC & BMP: 12/04/16 03:41 12/04/16 03:41 Lab Results: I have reviewed the past 24 hour labs
[2016-12-05] MEDS: VANCOMYCIN INJ 1,000 MG in SODIUM CHLORIDE 0.9% 250 ML IV SCH ×2 (02:01→15:09)
[2016-12-05 07:01] LABS: Calcium 6.5 MG/DL (8.5-10.1); Osmolality,Calculated 277.3 MOS/KG (273-304)
[2016-12-05] MEDS: SODIUM CHLORIDE 0.9% 1,000 ML IV SCH ×4 (07:09→21:28)
[2016-12-05] MEDS: INSULIN REGULAR 100 UNIT/ML SUBCUT SCH ×4 (07:14→20:12)
[2016-12-05] MEDS: glipiZIDE 5 MG TABLET PO SCH ×2 (07:23→16:06)
[2016-12-05] MEDS: DOCUSATE SODIUM 100 MG CAPSULE PO SCH ×2 (08:02→20:16)
[2016-12-05] MEDS: PREGABALIN 50 MG CAPSULE PO SCH ×3 (08:03→20:16)
[2016-12-05] MEDS: PANTOPRAZOLE 40 MG TABLET PO SCH (08:03)
--- NOTE | 2016-12-05 08:39 | Pain Management Consult Note ---
Assessment and Plan (1) Pain of left lower extremity Problem details: Status post left BKA with stump pain, postsurgical Status: Acute Assessment and plan: 12/05/2016. The patient is very pleasant 29-year-old female with uncontrolled diabetes mellitus and now status post left TKA. She had a septic left lower extremity at the foot and ankle. She denies any significant phantom pain in the left foot or ankle. Her primary pain is the surgical site. When I went by today she appeared to be quite comfortable. She is using the IUSS MASTER ANALYST reasonably frequently. She seem to be open to transitioning to oral medicines. We will start that process today, weaning the frequency of the IUSS MASTER ANALYST and adding oral hydrocodone. She is already on an adjuvant in the form of Lyrica. I will follow with you. y Current Visit: Yes History of Present Illness Chief complaint: Left lower extremity pain History of present illness: Ms. Marquez is a 31 year old female who is status post left BKA. She reports pain in around the side of her wound, throbbing aching deep pain. She reports that she still feels her left foot however does not complain of phantom limb symptomatology. Home Medications Medication Instructions Recorded Confirmed Type metFORMIN [Glucophage] 500 mg PO BID 04/01/16 11/30/16 History glipiZIDE [Glucotrol] 5 mg PO BIDAC #60 tablet 09/22/16 11/30/16 Rx Allergies Allergy/AdvReac Type Severity Reaction Status Date / Time No Known Allergies Allergy Verified 09/15/16 22:28 Medical,Surgical,& Family Hx - Medical History Cardio: History of: Hypertension Neurology: No history of: Seizures Endocrine: History of: Diabetes Mellitus (NIDDM) Respiratory: No history of: COPD Gastrointestinal: No history of: GERD Musculoskeletal: History of: Musculoskeletal Problems (tibal calcaneal fusion left ankle 11/19/16) Other: Comment Only: Anesthesia Reactions (no family problems) - Surgical History Thoracic Surgeries: Patient denies;: Organ Transplant Abdominal Surgeries: Patient denies: Abdominal Surgery Reproductive Surgeries: Surgical HX of;: Section Orthopedic Surgeries: Surgical HX of;: Orthopedic Surgery (scope left ankle; ORIF LT ANKLE) - Family History Family History: Reports;: Family Diabetes, Family Heart Disease, Family Hypertension, Family Stroke - Social History Smoking Status: Never smoker Frequency of Alcohol Use: None Type of Drug Use: None - Constitutional Constitutional: Present: fatigue - Musculoskeletal Musculoskeletal: Present: arthralgias - Neurological Neurological: Present: dizziness Exam - Constitutional Vitals: Period Temp Pulse Resp BP Sys/Salcedo Pulse Ox Last 24 Hr 96.9 F-99.3 F 86-96 18-20 95-130/60-80 93-100 General appearance: normal weight, no acute distress - Respiratory Respiratory exam: Present: clear to auscultation bilaterally - Cardiovascular Cardiovascular exam: Present: RRR - GI/Abdominal GI/Abdominal exam: Present: soft - Extremities Exam Extremities exam: Present: other (Bandage on left lower extremity BKA with tenderness) - Back Exam Back exam: Present: vertebral tenderness Results - Labs CBC & BMP: 12/04/16 03:41 12/05/16 05:56
--- NOTE | 2016-12-05 09:30 | History and Physical Update ---
Sedation H&P Update - History and Physical H&P was reviewed, the patient examined and there: are no changes in the patients condition since last H&P was completed. - Dictation Physical: refer to H&P completed by admitting physician - Physical Exam Mental Status: alert and oriented Heart: regular rate and rhythm Lung: clear to auscultation Abdomen: within normal limits Vitals: within normal limits - Sedation Plan for Sedation: MAC Patient Consent: Procedure disscussed with patient and patinet has consented., Risks and benefits were discussed with patient,including infection,, bleeding, injury to surrounding structures, seizure, temporary nerve, Patient understands and accepts potential risks/benefits and agrees to ASA Class: III Airway Assessment: Class II: Soft palate, uvula, fauces visible
--- NOTE | 2016-12-05 09:52 | Cardiology Progress Note ---
Assessment and Plan (1) Cellulitis Status: Acute Assessment and plan: 32-year-old black female, poorly controlled diabetes mellitus, MRSA sepsis due to left ankle fracture, postsurgical infection, now, status post left BKA. 12/05: JAZZ - no evidence of endocarditis -She does not have endocarditis. No complications from JAZZ. I will sign off, please call with further questions Current Visit: No (2) Hyperglycemia Status: Acute Current Visit: No (3) Diabetes Status: Acute Current Visit: No Qualifiers: Diabetes mellitus type: type 2 (4) UTI (urinary tract infection) Problem details: Posible GNR-UTI. Status: Acute Current Visit: No (5) NATHANAEL (acute kidney injury) Status: Acute Current Visit: No (6) Bacteremia Status: Acute Current Visit: Yes Cardiology - PN: Subj Interval history: She had uneventful JAZZ, no endocardial vegetations noted. Exam (Progress Note) - Constitutional Vitals: Period Temp Pulse Resp BP Sys/Salcedo Pulse Ox Last 24 Hr 96.9 F-99.3 F 86-96 18-20 95-130/60-80 93-100 General appearance: normal weight, no acute distress - Head Head exam: Present: normal inspection. Absent: contusion - Eye Eye exam: Absent: conjunctival injection, scleral icterus Pupils: Present: normal accommodation - ENT ENT exam: Present: normal external ear exam - Neck Neck exam: Present: normal inspection - Respiratory Respiratory exam: Present: clear to auscultation bilaterally. Absent: chest wall tenderness - Cardiovascular Cardiovascular exam: Present: regular rate and rhythm. Absent: JVD, systolic murmur - GI/Abdominal GI/Abdominal exam: Absent: normal bowel sounds, distended - Extremities Exam Extremities exam: Present: normal capillary refill, other (Left BKA) - Back Exam Back exam: Present: normal inspection - Neurological Exam Neurological exam: Present: alert, oriented X3 - Psychiatric Psychiatric exam: Present: normal affect, normal mood - Skin Skin exam: Present: normal color, warm. Absent: cyanosis Result/EKG - Labs CBC & BMP: 12/04/16 03:41 12/05/16 05:56 Lab Results: I have reviewed the past 24 hour labs Labs: Laboratory Results - last 24 hr 12/04/16 12/04/16 12/04/16 11:06 15:34 20:35 Sodium Potassium Chloride Carbon Dioxide Anion Gap BUN Creatinine GFR Calculation BUN/Creatinine Ratio Glucose POC Glucose 174 H 102 158 H Calculated Osmolality Calcium 12/05/16 12/05/16 05:56 06:44 Sodium 141 Potassium 4.0 Chloride 108 H Carbon Dioxide 26 Anion Gap 11.0 BUN 2 L Creatinine 0.60 GFR Calculation 115 BUN/Creatinine Ratio 3.00 L Glucose 113 H POC Glucose 140 H Calculated Osmolality 277.3 Calcium 6.5 L - EKG EKG results: interpreted by me
[2016-12-05] MEDS: MORPHINE PCA 30 MG/30 ML SYRINGE IV SCH ×2 (09:58→13:36)
--- NOTE | 2016-12-05 10:14 | Anesthesia Post-Op ---
Anesthesia Post OP - Post Ansesthetic Evaluation Patient seen in post op: Yes Resp: within normal limits CV: within normal limits Mental: within normal limits Temp: within normal limits [id number]-[id number]-[id number]: within normal limits Nausea and Vomiting: within normal limits Pain: within normal limits
[2016-12-05] MEDS ORDERED: MIDAZOLAM 2 MG/2 ML VIAL ONE (10:16)
[2016-12-05] MEDS ORDERED: PROPOFOL 200 MG/20 ML VIAL IV ONE (10:16)
[2016-12-05] MEDS ORDERED: fentaNYL 100 MCG/2 ML VIAL ONE (10:17)
--- NOTE | 2016-12-05 11:02 | ECHO Report ---
JimmyRafi osorio Exam Date: 12/05/2016 09:03 Referring Physician: Technologist: Debby Okeefe Age: 31 Ht (in): 64 Wt (lb): 134 Gender: F Exam Location: [facility] Echo Pre-op Dx: looking for Veg. Post-op Dx: BP: / HR: Rhythm: Sinus Technical Quality: Specimens Taken Devices Implanted Medications Complications Estimated Blood Loss Proc. Components IMPRESSIONS The left ventricle is normal in size, without hypertrophy, with normal systolic function. No significant valvular abnormalities. No evidence of intracardiac vegetations or thrombi. MEASUREMENTS (Male / Female) Normal Values FINDINGS Left Ventricle The left ventricle is normal in size, without hypertrophy, with normal systolic function. Right Ventricle The right ventricle is normal in size, with normal systolic function. Right Atrium Normal right atrial size Left Atrium Normal left atrial size. LA Appendage The left atrial appendage is normal, no thrombi. IA Septum The interatrial septum is normal. Mitral Valve Structurally normal mitral valve, with trace insufficiency, without stenosis. Aortic Valve Structurally normal aortic valve, trileaflet, no stenosis or insufficiency. Tricuspid Valve Structurally normal tricuspid valve, without stenosis or insufficiency. Pulmonic Valve Structurally normal pulmonic valve, with trace insufficiency, without stenosis. Pericardium Normal pericardium, no effusion Aorta The descending aorta is of normal size. Julio César Byrnes (Electronically Signed) Final Date: 05 December 2016 11:01
--- NOTE | 2016-12-05 11:03 | Event Note ---
Her pain is much better controlled. She is afebrile with stable vital signs. Her dressing is dry.
--- NOTE | 2016-12-05 12:31 | Infectious Disease Progress ---
Assessment and Plan (1) Bacteremia Status: Acute Assessment and plan: MRSA septicemia with source being septic left ankle. She is status post BKA. Repeat cultures from yesterday pending. T JAZZ negative for endocarditis. Recommendations: 1. Continue vancomycin therapy. Serum level a bit high today. Kidney function remains normal however. 2. Follow-up results of repeat blood cultures today 3. Vancomycin to be continued until January 01 assuming blood cultures from yesterday are negative Current Visit: Yes (2) Leukocytosis Status: Acute Assessment and plan: Most likely due to septic left ankle with the septicemia. Resolved. Current Visit: Yes (3) Sepsis Status: Acute Current Visit: Yes (4) Hypertension Status: Chronic Current Visit: Yes Qualifiers: Hypertension type: essential hypertension Qualified Code(s): I10 - Essential (primary) hypertension (5) Swelling of joint, ankle, left Status: Acute Assessment and plan: BKA done. Current Visit: No (6) Uncontrolled diabetes mellitus Status: Chronic Assessment and plan: Severely uncontrolled diabetes with an A1c of 10%. Current Visit: No Qualifiers: Diabetes mellitus type: type 2 Diabetes mellitus complication status: with skin complications Diabetes mellitus complication detail: with foot ulcer Diabetes mellitus longterm insulin use: without longterm use Qualified Code( s): E11.621 - Type 2 diabetes mellitus with foot ulcer; E11.65 - Type 2 diabetes mellitus with hyperglycemia; L97.509 - Non-pressure chronic ulcer of other part of unspecified foot with unspecified severity Infectious Disease - PN: Subj Interval history: Patient doing okay, and very good spirits. She has not had fever. JAZZ done this morning and it was negative for endocarditis. Infectious Disease Exam (PN) - Constitutional Vitals: Temp Pulse Resp BP Pulse Ox 98.6 F 82 18 115/75 95 12/05/16 12:00 12/05/16 12:00 12/05/16 12:00 12/05/16 12:00 12/05/16 12:00 General appearance: normal weight, no acute distress Exam: General appearance: Looks well - Eye Eye exam: Present: EOMI. no icterus Pupils: Present: NICCI - ENT ENT exam: no oral exudates - Respiratory Respiratory exam: vesicular BS, no crepitations or wheezes - Cardiovascular Cardiovascular exam: regular rate and rhythm, no murmurs - GI/Abdominal GI/Abdominal exam: normal bowel sounds, soft, non-tender, no organomegaly or mass - Extremities Exam Extremities exam: no edema, left BKA stump bandaged - Skin Skin exam: no rash Results - Labs CBC & BMP: 12/04/16 03:41 12/05/16 05:56 Lab Results: I have reviewed the past 24 hour labs Specialty Discharge - Follow Up or Referrals Follow up with: Abdoulaye Cardoso III., MD [Physician] - 12/17/16 1:30 pm (you will see Dr. Gonzales on your return appointment.)
--- NOTE | 2016-12-05 14:37 | Hospitalist Progress Note ---
Hospitalist: Subjective Interval history: Patient has no complaints. She does want to obtain information about short term disability. Exam - Constitutional Vitals: Period Temp Pulse Resp BP Sys/Salcedo Pulse Ox Last 24 Hr 96.9 F-99.3 F 82-96 18-20 95-130/60-80 93-100 General appearance: normal weight, no acute distress - Head Head exam: Present: normal inspection - Eye Eye exam: Present: EOMI Pupils: Present: NICCI - Respiratory Respiratory exam: Present: clear to auscultation bilaterally. Absent: rales, rhonchi, wheezes - Cardiovascular Cardiovascular exam: Present: regular rate and rhythm - GI/Abdominal GI/Abdominal exam: Present: normal bowel sounds, soft. Absent: tenderness - Extremities Exam Extremities exam: Absent: edema (s/p left BKA with dressing covering stump) - Neurological Exam Neurological exam: Present: alert, oriented X3 - Psychiatric Psychiatric exam: Present: normal affect, normal mood Results - Labs CBC & BMP: 12/04/16 03:41 12/05/16 05:56 - Impressions Active Issues: 1. MRSA bacteremia, bcx from 12/02 positive for MRSA; echo negative for endocarditis 2. Left ankle septic arthritis/infection s/p left BKA 3. DM, hba1c: 10%; sugars fairly controlled 4. h/o HTN: bp controlled without agents Plan: continue vancomycin; will need follow up blood cultures; apprecaite help by ID; d/c IVFs tomorrow; continue ISS; consult SW about STD information. Specialty Discharge - Follow Up or Referrals Follow up with: Abdoulaye Cardoso III., MD [Physician] - 12/17/16 1:30 pm (you will see Dr. Gonzales on your return appointment.)
[2016-12-05] MEDS: ENOXAPARIN 40 MG/0.4 ML SYRINGE SUBCUT SCH (15:09)
[2016-12-06] MEDS: VANCOMYCIN INJ 1,000 MG in SODIUM CHLORIDE 0.9% 250 ML IV SCH ×2 (01:35→16:25)
[2016-12-06 06:33] LABS: Basophils % 0.2 % (0.0-0.8); Eosinophils # 0.4 10*3/uL (0.0-0.87); Eosinophils % 4.2 % (0.00-10.9); Hematocrit 25.6 VOL% (35.7-47.0); Hemoglobin 8.2 GM/DL (12.0-16.0); Immature Granulocytes % 1.6 %; Immature Granulocytes Absolute 0.13 #; Lymphocytes # 2.1 10*3/uL (1.4-4.0); Lymphocytes % 25.3 % (21.3-54.2); Mean Corpuscular Hemoglobin 28 PG (27-34); Mean Platelet Volume 9.5 FL (9.6-12.0); Monocytes # 0.7 10*3/uL (0.11-0.8); Monocytes % 8.9 % (1.7-12.7); Neutrophils % 59.8 % (38.7-73.9); Platelet Count 558 T/CUMM (130-400); Red Blood Count 2.91 MC/CUMM (3.8-5.5); Red Cell Distribution Width 14.7 % (9.3-17.3); White Blood Count 8.3 T/CUMM (4-12)
[2016-12-06 07:01] LABS: Calcium 6.2 MG/DL (8.5-10.1); Magnesium 1.9 MG/DL (1.8-2.4); Osmolality,Calculated 279.4 MOS/KG (273-304); Potassium 4.5 MMOL/L (3.5-5.1)
[2016-12-06] MEDS: INSULIN REGULAR 100 UNIT/ML SUBCUT SCH ×4 (08:42→21:53)
[2016-12-06] MEDS: DOCUSATE SODIUM 100 MG CAPSULE PO SCH ×2 (08:42→21:53)
[2016-12-06] MEDS: PREGABALIN 50 MG CAPSULE PO SCH ×3 (08:43→21:53)
[2016-12-06] MEDS: SODIUM CHLORIDE 0.9% 1,000 ML IV SCH ×3 (08:43→23:17)
[2016-12-06] MEDS: glipiZIDE 5 MG TABLET PO SCH ×2 (08:43→17:00)
[2016-12-06] MEDS: PANTOPRAZOLE 40 MG TABLET PO SCH (10:23)
--- NOTE | 2016-12-06 10:44 | Event Note ---
This patient was seen today following left below-knee amputation by Dr. Janae LUGO on 12/03/2016. She was complaining that her dressing was too tight so we did remove it and examine the wound which was clean with no erythema or drainage. No necrotic tissue. Wound was replaced and the patient overall is doing well. Continue current care and I will see her again tomorrow
--- NOTE | 2016-12-06 12:30 | Pain Management Progress Note ---
Assessment and Plan (1) Pain of left lower extremity Problem details: Status post left BKA with stump pain, postsurgical Status: Acute Assessment and plan: 12/06/2016. The patient is doing better overall. Her stump pain is improving gradually. All medicines are working well. Will discontinue the SURVEY PARTY CHIEF. I will be available as needed. y 12/05/2016. The patient is very pleasant 29-year-old female with uncontrolled diabetes mellitus and now status post left TKA. She had a septic left lower extremity at the foot and ankle. She denies any significant phantom pain in the left foot or ankle. Her primary pain is the surgical site. When I went by today she appeared to be quite comfortable. She is using the SURVEY PARTY CHIEF reasonably frequently. She seem to be open to transitioning to oral medicines. We will start that process today, weaning the frequency of the SURVEY PARTY CHIEF and adding oral hydrocodone. She is already on an adjuvant in the form of Lyrica. I will follow with you. y Current Visit: Yes Pain - Subjective Interval history: Improving pain control. She reports pain in her left stump better since dressing change. The oral medicines are working better for her than the SURVEY PARTY CHIEF. The pain is a throbbing pain. Exam - Constitutional Vitals: Period Temp Pulse Resp BP Sys/Salcedo Pulse Ox Last 24 Hr 97.4 F-98.5 F 79-89 12-80 94-119/60-79 96-99 - Extremities Exam Extremities exam: Present: other (Left BKA with tenderness at wound.) Results - Labs CBC & BMP: 12/06/16 05:47 12/06/16 05:47 Specialty Discharge - Follow Up or Referrals Follow up with: Abdoulaye Cardoso III., MD [Physician] - 12/17/16 1:30 pm (you will see Dr. Gonzales on your return appointment.)
--- NOTE | 2016-12-06 15:52 | Hospitalist Progress Note ---
Hospitalist: Subjective Interval history: Patient has no complaints. Her LUE IV infiltrated and she had some hand swelling. She states that it has improved. Dressing on the stump has been loosened, and she feels better. She is eating well. She denies any SOB or CP. Exam - Constitutional Vitals: Period Temp Pulse Resp BP Sys/Salcedo Pulse Ox Last 24 Hr 97.4 F-98.4 F 79-89 12-20 103-119/60-79 96-99 General appearance: normal weight, no acute distress - Head Head exam: Present: normal inspection - Eye Eye exam: Present: EOMI Pupils: Present: NICCI - Respiratory Respiratory exam: Present: clear to auscultation bilaterally. Absent: rales, rhonchi, wheezes - Cardiovascular Cardiovascular exam: Present: regular rate and rhythm - GI/Abdominal GI/Abdominal exam: Present: normal bowel sounds, soft. Absent: distended, tenderness - Extremities Exam Extremities exam: Present: edema (s/p left BKA with dressing covering stump; mild swelling of dorsum of left hand, improving per patient) - Neurological Exam Neurological exam: Present: alert, oriented X3 - Psychiatric Psychiatric exam: Present: normal affect, normal mood Results - Labs CBC & BMP: 12/06/16 05:47 12/06/16 05:47 - Impressions Active Issues: 1. MRSA bacteremia, bcx from 12/02 positive for MRSA; Bcx: 12/04: no growth; echo negative for endocarditis 2. Left ankle septic arthritis/infection s/p left BKA 3. DM, hba1c: 10%; sugars fairly controlled 4. h/o HTN: bp controlled without agents 5. Hypocalcemia, mild Plan: continue vancomycin until 01/01/17. Apprecaite help by ID; d/c IVFs today; continue ISS; replete calcium. Specialty Discharge - Follow Up or Referrals Follow up with: Abdoulaye Cardoso III., MD [Physician] - 12/17/16 1:30 pm (you will see Dr. Gonzales on your return appointment.)
[2016-12-06] MEDS: ENOXAPARIN 40 MG/0.4 ML SYRINGE SUBCUT SCH (16:26)
[2016-12-06] MEDS ORDERED: CALCIUM GLUCONATE 1,000 MG in SODIUM CHLORIDE 0.9% 100 ML IV ONE (17:30)
[2016-12-07] MEDS: VANCOMYCIN INJ 1,000 MG in SODIUM CHLORIDE 0.9% 250 ML IV SCH ×2 (01:22→16:29)
[2016-12-07 06:21] LABS: Basophils % 0.4 % (0.0-0.8); Eosinophils # 0.4 10*3/uL (0.0-0.87); Eosinophils % 5.2 % (0.00-10.9); Hematocrit 25.6 VOL% (35.7-47.0); Hemoglobin 8.2 GM/DL (12.0-16.0); Immature Granulocytes % 1.4 %; Immature Granulocytes Absolute 0.11 #; Lymphocytes # 2.4 10*3/uL (1.4-4.0); Lymphocytes % 29.9 % (21.3-54.2); Mean Corpuscular Hemoglobin 28 PG (27-34); Mean Corpuscular Volume 87.1 FL (87-102); Mean Platelet Volume 9.5 FL (9.6-12.0); Monocytes # 0.7 10*3/uL (0.11-0.8); Monocytes % 8.5 % (1.7-12.7); Neutrophils # 4.4 10*3/uL (1.4-7.4); Neutrophils % 54.6 % (38.7-73.9); Platelet Count 595 T/CUMM (130-400); Red Blood Count 2.94 MC/CUMM (3.8-5.5); Red Cell Distribution Width 14.8 % (9.3-17.3)
[2016-12-07 07:00] LABS: Alanine Aminotransferase < 6 U/L (13-56); Albumin 1.3 G/DL (3.4-5.0); Alkaline Phosphatase 109 U/L (45-117); Aspartate Amino Transferase 9 U/L (0-37); Blood Urea Nitrogen 4 MG/DL (7-18); Calcium 6.7 MG/DL (8.5-10.1); Glucose 177 MG/DL (74-106); Osmolality,Calculated 277.5 MOS/KG (273-304); Potassium 4.4 MMOL/L (3.5-5.1); Sodium 139 MMOL/L (136-145); Total Protein 5.5 G/DL (6.4-8.3)
--- NOTE | 2016-12-07 07:55 | Event Note ---
She feels well. Her pain is controlled. Her stump is okay. We may look at [facility] tomorrow or so if she is felt to be medically ready.
[2016-12-07] MEDS: glipiZIDE 5 MG TABLET PO SCH ×2 (09:38→16:28)
[2016-12-07] MEDS: PANTOPRAZOLE 40 MG TABLET PO SCH (09:38)
[2016-12-07] MEDS: DOCUSATE SODIUM 100 MG CAPSULE PO SCH ×2 (09:38→20:29)
[2016-12-07] MEDS: PREGABALIN 50 MG CAPSULE PO SCH ×3 (09:39→20:29)
[2016-12-07] MEDS: INSULIN REGULAR 100 UNIT/ML SUBCUT SCH ×4 (09:39→20:28)
[2016-12-07] MEDS: SODIUM CHLORIDE 0.9% 1,000 ML IV SCH (10:04)
[2016-12-07] MEDS ORDERED: MAGNESIUM HYDROXIDE SUSP 30 ML UDCUP PO PRN (10:47)
--- NOTE | 2016-12-07 10:50 | Hospitalist Progress Note ---
Assessment and Plan (1) Hypertension Status: Chronic Current Visit: Yes Qualifiers: Hypertension type: essential hypertension Qualified Code(s): I10 - Essential (primary) hypertension (2) S/P BKA (below knee amputation) Status: Acute Current Visit: Yes (3) Bacteremia Status: Acute Current Visit: Yes Hospitalist: Subjective Interval history: The patient is resting comfortably no acute changes. No shortness of breath or chest pain. She has been hemodynamically stable. Serum calcium noted to be 6.7 today. This is being supplemented with IV calcium. Repeat BMP with magnesium in a.m. Plan for patient to transfer to [facility] on tomorrow. Exam - Constitutional Vitals: Period Temp Pulse Resp BP Sys/Salcedo Pulse Ox Last 24 Hr 97.0 F-99.9 F 76-89 18-20 100-132/58-87 97-100 General appearance: normal weight - Head Head exam: Present: normal inspection - Eye Eye exam: Present: EOMI - Respiratory Respiratory exam: Present: clear to auscultation bilaterally - Cardiovascular Cardiovascular exam: Present: regular rate and rhythm - GI/Abdominal GI/Abdominal exam: Present: normal bowel sounds - Extremities Exam Extremities exam: Present: normal inspection, full ROM - Neurological Exam Neurological exam: Present: alert, oriented X3, CN II-XII intact - Psychiatric Psychiatric exam: Present: normal affect, normal mood - Skin Skin exam: Present: normal color, dry Results - Labs CBC & BMP: 12/07/16 05:42 12/07/16 05:42 Specialty Discharge - Follow Up or Referrals Follow up with: Abdoulaye Cardoso III., MD [Physician] - 12/17/16 1:30 pm (you will see Dr. Gonzales on your return appointment.)
[2016-12-07] MEDS ORDERED: CALCIUM GLUCONATE 2,000 MG in SODIUM CHLORIDE 0.9% 100 ML IV ONE (11:30)
[2016-12-07] MEDS: ENOXAPARIN 40 MG/0.4 ML SYRINGE SUBCUT SCH (16:29)
[2016-12-08] MEDS: VANCOMYCIN INJ 1,000 MG in SODIUM CHLORIDE 0.9% 250 ML IV SCH ×2 (01:39→14:52)
--- NOTE | 2016-12-08 07:04 | Event Note ---
She looks and feels well. She has a normal white blood cell count and is afebrile. Her stump looks great. I see no signs of infection or ischemia or wound breakdown or stump. My standpoint she is okay to go to the [facility] for rehabilitation. I would like to see her back in my clinic in about 2 weeks.
[2016-12-08 07:48] LABS: Calcium 7.2 MG/DL (8.5-10.1); Osmolality,Calculated 277.5 MOS/KG (273-304); Potassium 4.5 MMOL/L (3.5-5.1)
[2016-12-08] MEDS: PREGABALIN 50 MG CAPSULE PO SCH ×3 (10:09→21:36)
[2016-12-08] MEDS: DOCUSATE SODIUM 100 MG CAPSULE PO SCH ×2 (10:09→21:36)
[2016-12-08] MEDS: INSULIN REGULAR 100 UNIT/ML SUBCUT SCH ×4 (10:09→21:37)
[2016-12-08] MEDS: PANTOPRAZOLE 40 MG TABLET PO SCH (10:09)
[2016-12-08] MEDS: glipiZIDE 5 MG TABLET PO SCH ×2 (10:09→16:36)
--- NOTE | 2016-12-08 10:46 | Discharge Summary ---
Hospital Course - Hospital Course Hospital Course: 31-year-old female admitted by the hospitalist on 11/30/2016 with sepsis due to left foot infection. Patient underwent tibiocalcaneal fusion for an unstable ankle and hindfoot secondary to Charcot arthropathy on November 19, [address] Dela Cruz. Patient had been noncompliant through most of her treatment course. Patient was seen in consult by Dr. Janae LUGO, Dr. Dela Cruz and Dr. Garcia. She was taken to the operating room on [address] 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 Cardiology has been consulted as well to proceed with JAZZ to rule out endocarditis due to her MRSA septicemia. This was found to be normal. Patient did also require pain management assistance to control her pain. Patient's wound is clean and her pain is controlled. She will be transferred to [facility] today for further rehab. She will also require vancomycin until January 01 since her follow-up blood cultures are negative. Care coordination, chart review, and completed discharge paperwork took approximately 46 minutes. - Time spent with patient Time with patient DS: Greater than 30 minutes Diagnosis - Discharge Diagnosis (1) MRSA bacteremia Status: Acute (2) Septic arthritis of left ankle Status: Resolved (3) History of noncompliance with medical treatment Status: Chronic (4) Uncontrolled diabetes mellitus Status: Chronic (5) Hypertension Status: Chronic Specialty Discharge - Follow Up or Referrals Follow up with: Abdoulaye Cardoso III., MD [Physician] - 12/17/16 1:30 pm (you will see Dr. Gonzales on your return appointment.) Discharge Plan - Discharge Data Disposition: [facility] Condition at Discharge: Stable Discharge Diet: diabetic diet Activity: as per physical therapy Hygiene: may shower Weight Bearing at Discharge: non-weight bearing Driving: not until seen by doctor Contact your physician if you experience:: fever over 101 - Discharge Medications New Docusate Sodium Cap [Colace Cap] 100 mg PO BID capsule HYDROcodone/ACETAMIN 7.5-325 [[place] 7.5-325] 1 tablet PO Q6H #30 tablet Vancomycin Inj 1,000 mg IV Q12H vial Acetaminophen Tab [Tylenol Tab] 650 mg PO Q4H PRN tablet PRN Reason: Fever, Headache, Mild Pain Pregabalin [Lyrica] 50 mg PO TID #90 capsule Continue metFORMIN [Glucophage] 500 mg PO BID glipiZIDE [Glucotrol] 5 mg PO BIDAC #60 tablet - Follow Up or Referral Follow Up: Abdoulaye Cardoso III., MD [Physician] - 12/17/16 1:30 pm (you will see Dr. Gonzales on your return appointment.) - Forms/Instructions Exam - Constitutional Vitals: Period Temp Pulse Resp BP Sys/Salcedo Pulse Ox Last 24 Hr 97.5 F-98.6 F 72-88 18-18 107-150/60-87 94-98 Exam: 31-year-old female, no acute distress, alert and oriented Chest clear CV regular rate and rhythm Abdomen soft nontender Extremities well-healing left BKA, right with no edema Discharge Results Procedures and tests throughout hospitalization: Pending Orders 12/04/16 16:55 Blood Culture Stat 12/05/16 08:30 CL heart Routine 12/09/16 13:30 Vancomycin,Trough Timed Labs on day of discharge: Labs from last 24 hours 12/08/16 12/08/16 12/07/16 06:46 06:01 19:22 Sodium 139 Potassium 4.5 Chloride 106 Carbon Dioxide 28 Anion Gap 9.5 BUN 5 L Creatinine 0.60 GFR Calculation 115 BUN/Creatinine Ratio 8.00 Glucose 174 H POC Glucose 177 H 203 H Calculated Osmolality 277.5 Calcium 7.2 L Magnesium 2.0 12/07/16 12/07/16 16:43 10:43 Sodium Potassium Chloride Carbon Dioxide Anion Gap BUN Creatinine GFR Calculation BUN/Creatinine Ratio Glucose POC Glucose 126 H 211 H Calculated Osmolality Calcium Magnesium Preliminary micro results at discharge 12/04/16 16:55 Blood Culture - Preliminary Blood No growth at 3 days 12/04/16 16:55 Blood Culture - Preliminary Blood No growth at 3 days DS: Provider Date of admission: 11/30/16 14:54 Primary care physician: Bonnie Granados MD Attending physician on admission: Selam Bird MD Consults: 11/30/16 15:26 Consult to Physician [CONS] Routine Comment: Consulting Provider: [place] Dela Cruz Jr. Consulting Provider Notified: Yes When should Consulting Provider be notified: Now Person Notified: DR NANCIE HUTTON Date Notified: 11/30/16 Time Notified: 16:42 Consult Notification Comment: KRISTI DELA CRUZ IN AM reynaldo webb called with consult and room number to office for Dr. dela cruz 11/30/16 15:58 Consult to Physician [CONS] Routine Comment: Placement of central line Consulting Provider: 12/01/16 09:58 Consult to Physician [CONS] Routine Comment: Consulting Provider: Abdoulaye Cardoso III. Consulting Provider Notified: Yes When should Consulting Provider be notified: Now Person Notified: zan called Date Notified: 12/01/16 Time Notified: 09:59 12/02/16 10:42 Consult to Physician [CONS] Routine Comment: Bacteremia, infected ankle with MRSA Consulting Provider: Shantel Garcia 12/04/16 08:13 Consult to Physician [CONS] Routine Comment: consult cadiology for JAZZ Consulting Provider: Cardiology - [facility] Consulting Provider Notified: Yes When should Consulting Provider be notified: Now Person Notified: jesús called Date Notified: 12/04/16 Time Notified: 08:14 12/04/16 13:32 Consult to Physician [CONS] Routine Comment: pain associate professor of management Provider: Kenny Saunders Consulting Provider Notified: Yes When should Consulting Provider be notified: Now Person Notified: office called Date Notified: 12/04/16 Time Notified: 13:41 12/05/16 14:39 Consult to Case Mgmt/Social Srvs [CONS] Routine Reason for Case Mgmt/Social Srvs: Other Consult Comment: information about short term disability Discharging clinician: BONIFACIO Schilling Expected date of discharge: 12/08/16
--- NOTE | 2016-12-08 13:33 | Infectious Disease Progress ---
Assessment and Plan (1) Bacteremia Status: Acute Assessment and plan: MRSA septicemia with source being septic left ankle. She is status post BKA. Repeat cultures are negative to date. JAZZ negative for endocarditis. Recommendations: 1. Continue vancomycin therapy until January 01 2. Appointment to see me in the office in 2 weeks Current Visit: Yes (2) Leukocytosis Status: Acute Assessment and plan: Resolved. Current Visit: Yes (3) Sepsis Status: Acute Current Visit: Yes (4) Hypertension Status: Chronic Current Visit: Yes Qualifiers: Hypertension type: essential hypertension Qualified Code(s): I10 - Essential (primary) hypertension (5) Swelling of joint, ankle, left Status: Acute Assessment and plan: BKA done. Current Visit: No (6) Uncontrolled diabetes mellitus Status: Chronic Assessment and plan: Severely uncontrolled diabetes with an A1c of 10%. Current Visit: No Qualifiers: Diabetes mellitus type: type 2 Diabetes mellitus complication status: with skin complications Diabetes mellitus complication detail: with foot ulcer Diabetes mellitus exterminator insulin use: without group home use Qualified Code( s): E11.621 - Type 2 diabetes mellitus with foot ulcer; E11.65 - Type 2 diabetes mellitus with hyperglycemia; L97.509 - Non-pressure chronic ulcer of other part of unspecified foot with unspecified severity Infectious Disease - PN: Subj Interval history: Patient doing okay, uneventful weekend. Continues to tolerate vancomycin. Denies nausea vomiting or diarrhea. Has not fever. Infectious Disease Exam (PN) - Constitutional Vitals: Temp Pulse Resp BP Pulse Ox 98.3 F 79 18 129/74 100 12/08/16 10:40 12/08/16 10:40 12/08/16 10:40 12/08/16 10:40 12/08/16 10:40 General appearance: normal weight Exam: General appearance: Looks well - Eye Eye exam: Present: EOMI. no icterus Pupils: Present: NICCI - ENT ENT exam: no oral exudates - Respiratory Respiratory exam: vesicular BS, no crepitations or wheezes - Cardiovascular Cardiovascular exam: regular rate and rhythm, no murmurs - GI/Abdominal GI/Abdominal exam: normal bowel sounds, soft, non-tender, no organomegaly or mass - Extremities Exam Extremities exam: no edema, left BKA stump bandaged - Skin Skin exam: no rash Results - Labs CBC & BMP: 12/07/16 05:42 12/08/16 06:01 Lab Results: I have reviewed the past 24 hour labs (Repeat blood cultures negative at day 3) Specialty Discharge - Follow Up or Referrals Follow up with: Abdoulaye Cardoso III., MD [Physician] - 12/23/16 1:45 pm ()
[2016-12-08] MEDS: ENOXAPARIN 40 MG/0.4 ML SYRINGE SUBCUT SCH (14:52)
[2016-12-09] MEDS: VANCOMYCIN INJ 1,000 MG in SODIUM CHLORIDE 0.9% 250 ML IV SCH ×2 (01:10→14:08)
[2016-12-09] MEDS: DOCUSATE SODIUM 100 MG CAPSULE PO SCH (08:31)
[2016-12-09] MEDS: PREGABALIN 50 MG CAPSULE PO SCH ×2 (08:31→14:57)
[2016-12-09] MEDS: PANTOPRAZOLE 40 MG TABLET PO SCH (08:31)
[2016-12-09] MEDS: glipiZIDE 5 MG TABLET PO SCH (08:31)
[2016-12-09] MEDS: INSULIN REGULAR 100 UNIT/ML SUBCUT SCH ×2 (08:32→11:59)
[2016-12-09] MEDS: ENOXAPARIN 40 MG/0.4 ML SYRINGE SUBCUT SCH (14:56)
[2016-12-09 15:28] VITALS: BP 133/80
--- NOTE | 2016-12-09 15:49 | Post Interventional Procedure ---
Pre-op diagnosis: septic joint with amputation Post-op diagnosis: same Procedure: PICC placement Contrast: none Flouroscopy: 0.2 min Radiologist: Melchor Aleman Anesthesia: local Specimens: none sent Estimated blood loss: minimal (2 mL) Complications: none Condition: stable Description/Findings: left arm 5 Fr dual lumen PICC placement done and ready for use Assessment and Plan - Time spent with patient Time spent with patient: Less than 30 minutes
--- NOTE | 2016-12-09 15:55 | Interventional Radiology Rpt ---
IR PICC line insertion, US guide vascular access IR PICC Placement Peripherally-inserted central catheter (PICC) placement using ultrasound and fluoroscopic guidance Ultrasound of the left upper extremity Clinical Information: 31-year-old female with history of septic left ankle requiring agitation now needs long-term intravenous antibiotic administration. PICC line is requested Physician: Dr. Aleman Procedure: The patient was advised of the benefits, risks, and alternatives of the procedure and informed consent was obtained. A time out was performed with verification of the patient's name, MRN, site of procedure, and type of procedure to be performed. The patient was positioned in the supine position on the angiographic table. The site was prepped and draped in the usual sterile fashion. Additionally, maximal sterile barrier technique was employed for the procedure. A metal machinist radiograph reveals no relevant abnormality. Ultrasound examination of the left arm demonstrates patent and compressible brachial and basilic veins. The left arm was prepped and draped in the usual sterile fashion. The left basilic vein was again identified. Using ultrasound guidance, a 21 gauge needle was used to access the vein. A permanent ultrasound recording of vascular access was obtained for the patient's record. A 0.018" cope wire was then advanced into the vein. The needle was exchanged for a 5 [place] peel-away sheath. A 5 [place] double lumen Bard Solo PICC catheter was measured and trimmed to the 38 cm raquel. The PICC line was advanced through the sheath and into the central circulation. The catheter tip was positioned at the cavo-atrial junction. The peel-away sheath was then removed. At the conclusion of the procedure, the catheter was secured in place using a Stat-Lock device. A sterile dressing was applied. The lumens aspirate and flush freely. The catheter is ready for immediate use. The patient tolerated the procedure well and was returned to the PRU in stable condition. EBL: < 5 mL. Complications: None. Fluoroscopy time: 0.2 minutes Total number of images for this study: 2 Conclusion: Successful placement of a 5 [place] double lumen Bard Solo power injectable PICC via the left basilic vein. The catheter is ready for immediate use. PROCEDURE INTERPRETED AT [facility] DEPARTMENT OF RADIOLOGY Final Report Signed by: Melchor Aleman
== END 2016-12-09 15:55 | disposition swing bed (61) | DRG 305 ==
LOC: EDUNIT# → EDBD → N.ED 12:16 → N.EDINP 14:54 → SUATTDRO 14:54 → N.EDINP 16:11 → N.3E 16:31
PROVIDERS: ADMIT Family Medicine; ATTEND Internal Medicine

== ENCOUNTER 2019-09-30 12:07 | Inpatient (IN) ==
[2019-09-30] MEDS ORDERED: ACETAMINOPHEN 325 MG TABLET PO PRN (16:29)
[2019-09-30] MEDS ORDERED: ONDANSETRON 4 MG/2 ML VIAL IV PRN (16:29)
[2019-09-30] MEDS ORDERED: GLUCAGON 1 MG VIAL IM PRN ×2 (16:29→16:34)
[2019-09-30] MEDS ORDERED: DEXTROSE 50% 25 GM/50 ML VIAL IV PRN ×2 (16:29→16:34)
[2019-09-30] MEDS ORDERED: SODIUM CHLORIDE 0.9% 1,000 ML IV SCH (16:30)
[2019-09-30] MEDS: INSULIN LISPRO 100 UNIT/ML SUBCUT SCH ×2 (17:32→21:20)
[2019-09-30] MEDS ORDERED: POTASSIUM CHLORIDE 20 MEQ/15 ML UDCUP PER TUBE PRN (17:37)
[2019-09-30 18:20] LABS: Basophils % 0.2 % (0.0-0.8); Eosinophils # 0.2 10*3/uL (0.0-0.87); Eosinophils % 0.9 % (0.00-10.9); Hematocrit 35.5 VOL% (35.7-47.0); Hemoglobin 12.2 GM/DL (12.0-16.0); Immature Granulocytes % 0.8 %; Immature Granulocytes Absolute 0.15 #; Lymphocytes # 1.5 10*3/uL (1.4-4.0); Lymphocytes % 7.9 % (21.3-54.2); Mean Corpuscular HGB Conc 34.4 GM/DL (32-36); Mean Corpuscular Volume 89.9 FL (87-102); Mean Platelet Volume 10.5 FL (9.6-12.0); Monocytes % 5.4 % (1.7-12.7); Neutrophils % 84.8 % (38.7-73.9); Platelet Count 251 T/CUMM (130-400); Red Blood Count 3.95 MC/CUMM (3.8-5.5); Red Cell Distribution Width 11.9 % (9.3-17.3); White Blood Count 19.4 T/CUMM (4-12)
[2019-09-30] MEDS: LACTATED RINGERS 1,000 ML IV SCH (18:37)
[2019-09-30] MEDS: AMPICILLIN/SULBACTAM 1,500 MG in SODIUM CHLORIDE 0.9% 100 ML IV SCH (18:42)
[2019-09-30 18:45] LABS: Albumin 2.2 G/DL (3.4-5.0); Calcium 7.4 MG/DL (8.5-10.1); Osmolality,Calculated 277.5 MOS/KG (273-304); Total Protein 6.3 G/DL (6.4-8.3)
[2019-09-30] MEDS: INSULIN GLARGINE 100 UNIT/ML SUBCUT SCH (21:21)
[2019-09-30] MEDS: VANCOMYCIN INJ 1,000 MG in SODIUM CHLORIDE 0.9% 250 ML IV SCH (21:22)
[2019-09-30] MEDS: MORPHINE 4 MG/1 ML VIAL IV PRN (22:54)
[2019-10-01] MEDS: AMPICILLIN/SULBACTAM 1,500 MG in SODIUM CHLORIDE 0.9% 100 ML IV SCH ×4 (00:46→19:34)
[2019-10-01] MEDS: POTASSIUM CHLORIDE 20 MEQ TABLET PO PRN ×2 (00:51→02:34)
[2019-10-01 07:55] LABS: Basophils % 0.2 % (0.0-0.8); Eosinophils # 0.3 10*3/uL (0.0-0.87); Eosinophils % 2.1 % (0.00-10.9); Hematocrit 33.3 VOL% (35.7-47.0); Hemoglobin 11.1 GM/DL (12.0-16.0); Immature Granulocytes % 1.2 %; Immature Granulocytes Absolute 0.19 #; Lymphocytes # 1.7 10*3/uL (1.4-4.0); Lymphocytes % 10.2 % (21.3-54.2); Mean Corpuscular HGB Conc 33.3 GM/DL (32-36); Mean Platelet Volume 11.3 FL (9.6-12.0); Monocytes % 7.8 % (1.7-12.7); Neutrophils % 78.5 % (38.7-73.9); Platelet Count 250 T/CUMM (130-400); Red Blood Count 3.62 MC/CUMM (3.8-5.5); White Blood Count 16.4 T/CUMM (4-12)
[2019-10-01 07:57] LABS: Calcium 7.2 MG/DL (8.5-10.1); Osmolality,Calculated 270.2 MOS/KG (273-304)
[2019-10-01] MEDS: VANCOMYCIN INJ 1,000 MG in SODIUM CHLORIDE 0.9% 250 ML IV SCH ×2 (08:43→21:28)
[2019-10-01] MEDS: INSULIN LISPRO 100 UNIT/ML SUBCUT SCH ×7 (08:43→21:28)
[2019-10-01] MEDS: LACTATED RINGERS 1,000 ML IV SCH ×2 (08:44→19:33)
[2019-10-01] MEDS ORDERED: BUPIVACAINE MPF 0.25% 30 ML VIAL ONE (14:45)
[2019-10-01] MEDS ORDERED: LIDOCAINE 1% 20 ML VIAL ONE (14:45)
[2019-10-01] MEDS ORDERED: propofoL 200 MG/20 ML VIAL IV ONE (15:21)
[2019-10-01] MEDS ORDERED: SEVOFLURANE 1 UNIT/15 MINUTE INH ONE (15:21)
[2019-10-01] MEDS ORDERED: fentaNYL 100 MCG/2 ML VIAL ONE (15:21)
[2019-10-01] MEDS ORDERED: PHENYLEPHRINE 1 MG/10 ML SYRINGE IV ONE (15:21)
[2019-10-01] MEDS ORDERED: LIDOCAINE 2% 5 ML VIAL ONE (15:21)
[2019-10-01] MEDS ORDERED: MIDAZOLAM 2 MG/2 ML VIAL ONE (15:21)
[2019-10-01] MEDS ORDERED: ONDANSETRON 4 MG/2 ML VIAL IV PRN (15:30)
[2019-10-01] MEDS: HYDROmorphone 2 MG/1 ML VIAL IV PRN ×2 (15:33→15:40)
[2019-10-01] MEDS: MORPHINE 4 MG/1 ML VIAL IV PRN ×2 (16:44→22:28)
[2019-10-01] MEDS: INSULIN GLARGINE 100 UNIT/ML SUBCUT SCH (21:28)
[2019-10-02] MEDS: AMPICILLIN/SULBACTAM 1,500 MG in SODIUM CHLORIDE 0.9% 100 ML IV SCH ×4 (01:00→17:24)
[2019-10-02] MEDS: MORPHINE 4 MG/1 ML VIAL IV PRN ×4 (03:49→17:29)
[2019-10-02 06:16] LABS: Basophils % 0.4 % (0.0-0.8); Eosinophils # 0.3 10*3/uL (0.0-0.87); Eosinophils % 2.5 % (0.00-10.9); Hematocrit 31.8 VOL% (35.7-47.0); Hemoglobin 10.5 GM/DL (12.0-16.0); Immature Granulocytes % 0.5 %; Immature Granulocytes Absolute 0.06 #; Lymphocytes # 1.8 10*3/uL (1.4-4.0); Lymphocytes % 15.9 % (21.3-54.2); Mean Corpuscular Volume 92.4 FL (87-102); Mean Platelet Volume 11.4 FL (9.6-12.0); Monocytes % 8.6 % (1.7-12.7); Neutrophils % 72.1 % (38.7-73.9); Platelet Count 248 T/CUMM (130-400); Red Blood Count 3.44 MC/CUMM (3.8-5.5); Red Cell Distribution Width 12.2 % (9.3-17.3); White Blood Count 11.4 T/CUMM (4-12)
[2019-10-02 06:36] LABS: Calcium 7.7 MG/DL (8.5-10.1); Osmolality,Calculated 277.7 MOS/KG (273-304)
[2019-10-02] MEDS: LACTATED RINGERS 1,000 ML IV SCH ×2 (08:00→08:19)
[2019-10-02] MEDS: INSULIN LISPRO 100 UNIT/ML SUBCUT SCH ×7 (08:52→22:39)
[2019-10-02] MEDS: VANCOMYCIN INJ 1,000 MG in SODIUM CHLORIDE 0.9% 250 ML IV SCH ×2 (08:55→21:40)
[2019-10-02] MEDS: INSULIN GLARGINE 100 UNIT/ML SUBCUT SCH (21:39)
[2019-10-03] MEDS: AMPICILLIN/SULBACTAM 1,500 MG in SODIUM CHLORIDE 0.9% 100 ML IV SCH ×2 (00:43→05:38)
[2019-10-03] MEDS: LACTATED RINGERS 1,000 ML IV SCH ×3 (00:44→15:21)
[2019-10-03 05:24] LABS: Basophils % 0.3 % (0.0-0.8); Eosinophils # 0.3 10*3/uL (0.0-0.87); Eosinophils % 3.1 % (0.00-10.9); Hematocrit 30.1 VOL% (35.7-47.0); Hemoglobin 9.8 GM/DL (12.0-16.0); Immature Granulocytes % 0.7 %; Immature Granulocytes Absolute 0.07 #; Lymphocytes # 2.5 10*3/uL (1.4-4.0); Lymphocytes % 24.9 % (21.3-54.2); Mean Corpuscular HGB Conc 32.6 GM/DL (32-36); Mean Corpuscular Volume 93.2 FL (87-102); Mean Platelet Volume 11.7 FL (9.6-12.0); Platelet Count 268 T/CUMM (130-400); Red Blood Count 3.23 MC/CUMM (3.8-5.5); Red Cell Distribution Width 12.1 % (9.3-17.3); White Blood Count 9.9 T/CUMM (4-12)
[2019-10-03 05:49] LABS: Calcium 7.5 MG/DL (8.5-10.1); Osmolality,Calculated 274.7 MOS/KG (273-304)
[2019-10-03] MEDS: INSULIN LISPRO 100 UNIT/ML SUBCUT SCH ×7 (07:36→22:18)
[2019-10-03] MEDS ORDERED: MAGNESIUM SULF RIDER 4 GM in PREMIX 1 EACH IV ONE (07:47)
[2019-10-03] MEDS: VANCOMYCIN INJ 1,000 MG in SODIUM CHLORIDE 0.9% 250 ML IV SCH (08:35)
[2019-10-03] MEDS: MORPHINE 4 MG/1 ML VIAL IV PRN (09:35)
[2019-10-03] MEDS: SODIUM HYPOCHLORITE 0.25% IRRIG 473 ML BOTTLE TOP SCH (10:31)
[2019-10-03] MEDS ORDERED: LEVOFLOXACIN INJ 500 MG in PREMIX 1 EACH IV SCH (11:00)
[2019-10-03] MEDS: LEVOFLOXACIN INJ 500 MG in PREMIX 1 EACH IV SCH (13:41)
[2019-10-03] MEDS: INSULIN GLARGINE 100 UNIT/ML SUBCUT SCH (22:18)
[2019-10-04] MEDS: LACTATED RINGERS 1,000 ML IV SCH ×2 (01:15→11:24)
[2019-10-04 06:32] LABS: Basophils % 0.3 % (0.0-0.8); Eosinophils # 0.3 10*3/uL (0.0-0.87); Hematocrit 31.6 VOL% (35.7-47.0); Hemoglobin 10.3 GM/DL (12.0-16.0); Immature Granulocytes % 0.7 %; Immature Granulocytes Absolute 0.07 #; Lymphocytes # 1.9 10*3/uL (1.4-4.0); Lymphocytes % 18.9 % (21.3-54.2); Mean Corpuscular HGB Conc 32.6 GM/DL (32-36); Mean Corpuscular Volume 92.7 FL (87-102); Mean Platelet Volume 11.2 FL (9.6-12.0); Neutrophils % 68.1 % (38.7-73.9); Platelet Count 309 T/CUMM (130-400); Red Blood Count 3.41 MC/CUMM (3.8-5.5); Red Cell Distribution Width 12.2 % (9.3-17.3); White Blood Count 10.2 T/CUMM (4-12)
[2019-10-04 06:54] LABS: Calcium 7.9 MG/DL (8.5-10.1); Osmolality,Calculated 272.8 MOS/KG (273-304)
[2019-10-04] MEDS: INSULIN LISPRO 100 UNIT/ML SUBCUT SCH ×6 (08:36→15:50)
[2019-10-04] MEDS: SODIUM HYPOCHLORITE 0.25% IRRIG 473 ML BOTTLE TOP SCH (08:37)
[2019-10-04] MEDS: LEVOFLOXACIN INJ 500 MG in PREMIX 1 EACH IV SCH (14:25)
[2019-10-04 15:49] VITALS: BP 143/90
== END 2019-10-04 17:17 | disposition home or self-care (01) | DRG 749 ==
LOC: N.2E 16:01 → N.3E 10-01 15:29
PROVIDERS: ADMIT Internal Medicine; ATTEND Internal Medicine

== ENCOUNTER 2022-04-21 13:45 | Inpatient (IN) ==
[2022-04-21] MEDS ORDERED: ACETAMINOPHEN 500 MG TABLET PO STA (16:09)
[2022-04-21] MEDS ORDERED: SODIUM CHLORIDE 0.9% 1,000 ML IV STA (16:09)
[2022-04-21 16:51] LABS: Bacteria,Urine Occasional /HPF (Few); Bilirubin,Urine Negative (Negative); Blood, Urine Moderate mg/dL (Negative); Glucose,Urine (UA) >=1000 mg/dL (Negative); Ketones,Urine Trace mg/dL (Negative); Nitrite,Urine Negative (Negative); Protein,Urine 30 mg/dL (Negative); RBC,Urine 10 /HPF (0-4); Squamous Epithelial Cell,Urine Occasional /HPF (0-10); Urine Appearance Clear (Clear); Urine Color Yellow (Yellow)
[2022-04-21 16:52] LABS: Urine Urobilinogen 0.2 eU/dL (<2.0)
[2022-04-21 16:56] LABS: Basophils % 0.3 % (0.0-0.8); Eosinophils # 0.1 10*3/uL (0.0-0.87); Eosinophils % 0.6 % (0.00-10.9); Hematocrit 28.9 VOL% (35.7-47.0); Hemoglobin 9.4 GM/DL (12.0-16.0); Immature Granulocytes % 0.6 %; Immature Granulocytes Absolute 0.06 #; Lymphocytes # 1.2 10*3/uL (1.4-4.0); Lymphocytes % 12.1 % (21.3-54.2); Mean Corpuscular HGB Conc 32.5 GM/DL (32-36); Mean Platelet Volume 10.5 FL (9.6-12.0); Monocytes % 9.8 % (1.7-12.7); Neutrophils % 76.6 % (38.7-73.9); Platelet Count 391 T/CUMM (130-400); Red Blood Count 3.48 MC/CUMM (3.8-5.5); Red Cell Distribution Width 13.4 % (9.3-17.3)
[2022-04-21 17:28] LABS: Alanine Aminotransferase < 9 U/L (13-56); Alkaline Phosphatase 137 U/L (45-117); Aspartate Amino Transferase 3 U/L (0-37); Bilirubin,Total < 0.39 MG/DL (0.20-1.00); Blood Urea Nitrogen 18 MG/DL (7-18); Calcium 7.9 MG/DL (8.5-10.1); Carbon Dioxide 22 MMOL/L (21-32); Chloride 105 MMOL/L (98-107); Osmolality,Calculated 294.1 MOS/KG (273-304); Potassium 3.9 MMOL/L (3.5-5.1); Sodium 135 MMOL/L (136-145); Total Protein 6.5 G/DL (6.4-8.2)
[2022-04-21 17:33] LABS: Glucose 517 MG/DL (74-106)
[2022-04-21] MEDS ORDERED: INSULIN REGULAR 100 UNIT/ML IV STA (17:35)
[2022-04-21 18:13] LABS: Arterial Base Excess iSTAT -7 MMOL/L (-2.5-2.5); Arterial Bicarbonate iSTAT 17.3 MMOL/L (20-26); Arterial O2 Saturation iSTAT 96 % (95-100); Arterial PCO2 iSTAT 31 MM HG (35-48); Arterial PO2 iSTAT 83 MM HG (80-95); Arterial Total CO2 iSTAT 18 MMO/L (23-27); Arterial pH iSTAT 7.359 (7.35-7.45)
[2022-04-21] MEDS ORDERED: PIPERACILLIN/TAZOBACTAM 3,375 MG in SODIUM CHLORIDE 0.9% 100 ML IV STA (18:38)
[2022-04-21] MEDS ORDERED: ONDANSETRON 4 MG/2 ML VIAL IV PRN (21:02)
[2022-04-21] MEDS ORDERED: ACETAMINOPHEN 325 MG TABLET PO PRN (21:02)
[2022-04-21] MEDS ORDERED: GLUCAGON 1 MG VIAL IM PRN (21:02)
[2022-04-21] MEDS ORDERED: DEXTROSE 10% 250 ML BAG IV PRN (21:02)
[2022-04-21] MEDS: LACTATED RINGERS 1,000 ML IV SCH (22:06)
[2022-04-22 05:19] LABS: Basophils % 0.4 % (0.0-0.8); Eosinophils # 0.2 10*3/uL (0.0-0.87); Eosinophils % 1.8 % (0.00-10.9); Hemoglobin 8.3 GM/DL (12.0-16.0); Immature Granulocytes % 0.6 %; Immature Granulocytes Absolute 0.06 #; Lymphocytes # 1.8 10*3/uL (1.4-4.0); Lymphocytes % 17.6 % (21.3-54.2); Mean Corpuscular HGB Conc 31.9 GM/DL (32-36); Mean Corpuscular Volume 84.1 FL (87-102); Mean Platelet Volume 10.2 FL (9.6-12.0); Monocytes # 0.8 10*3/uL (0.11-0.8); Monocytes % 7.7 % (1.7-12.7); Neutrophils % 71.9 % (38.7-73.9); Platelet Count 324 T/CUMM (130-400); Red Blood Count 3.09 MC/CUMM (3.8-5.5); Red Cell Distribution Width 13.6 % (9.3-17.3); White Blood Count 10.1 T/CUMM (4-12)
[2022-04-22 05:34] LABS: Calcium 7.5 MG/DL (8.5-10.1); Osmolality,Calculated 287.5 MOS/KG (273-304); Potassium 3.4 MMOL/L (3.5-5.1)
[2022-04-22] MEDS: INSULIN LISPRO 100 UNIT/ML SUBCUT SCH ×4 (08:00→21:44)
[2022-04-22] MEDS ORDERED: INSULIN GLARGINE 100 UNIT/ML SUBCUT SCH (09:00)
[2022-04-22] MEDS: PIPERACILLIN/TAZOBACTAM 3,375 MG in SODIUM CHLORIDE 0.9% 100 ML IV SCH ×2 (10:49→21:37)
[2022-04-22] MEDS: PANTOPRAZOLE 40 MG TABLET PO SCH (10:50)
[2022-04-22] MEDS: LACTATED RINGERS 1,000 ML IV SCH (10:50)
[2022-04-22] MEDS ORDERED: POTASSIUM CHLORIDE 20 MEQ TABLET PO ONE (11:35)
[2022-04-23] MEDS: LACTATED RINGERS 1,000 ML IV SCH (04:50)
[2022-04-23] MEDS: PIPERACILLIN/TAZOBACTAM 3,375 MG in SODIUM CHLORIDE 0.9% 100 ML IV SCH ×3 (05:02→21:14)
[2022-04-23 05:31] LABS: Basophils % 0.2 % (0.0-0.8); Eosinophils # 0.3 10*3/uL (0.0-0.87); Eosinophils % 2.8 % (0.00-10.9); Hematocrit 24.4 VOL% (35.7-47.0); Hemoglobin 7.6 GM/DL (12.0-16.0); Immature Granulocytes % 0.6 %; Immature Granulocytes Absolute 0.05 #; Lymphocytes % 22.2 % (21.3-54.2); Mean Corpuscular HGB Conc 31.1 GM/DL (32-36); Mean Corpuscular Volume 84.7 FL (87-102); Mean Platelet Volume 10.1 FL (9.6-12.0); Monocytes # 0.7 10*3/uL (0.11-0.8); Monocytes % 7.9 % (1.7-12.7); Neutrophils % 66.3 % (38.7-73.9); Platelet Count 428 T/CUMM (130-400); Red Blood Count 2.88 MC/CUMM (3.8-5.5); Red Cell Distribution Width 13.6 % (9.3-17.3); White Blood Count 9.1 T/CUMM (4-12)
[2022-04-23 06:01] LABS: Calcium 7.9 MG/DL (8.5-10.1); Potassium 3.7 MMOL/L (3.5-5.1)
[2022-04-23 08:06] LABS: % Iron Saturation 13.7 % (18-50); Ferritin 170.2 ng/mL (8-252)
[2022-04-23] MEDS: INSULIN LISPRO 100 UNIT/ML SUBCUT SCH ×4 (08:53→21:13)
[2022-04-23] MEDS: INSULIN GLARGINE 100 UNIT/ML SUBCUT SCH (08:54)
[2022-04-23] MEDS: PANTOPRAZOLE 40 MG TABLET PO SCH (08:56)
[2022-04-23] MEDS: FERROUS SULFATE 325 MG TABLET PO SCH ×2 (08:57→21:12)
[2022-04-24] MEDS ORDERED: FLUCONAZOLE 100 MG TABLET PO SCH (01:00)
[2022-04-24] MEDS: PIPERACILLIN/TAZOBACTAM 3,375 MG in SODIUM CHLORIDE 0.9% 100 ML IV SCH (05:45)
[2022-04-24 08:29] VITALS: BP 144/88
[2022-04-24] MEDS: PANTOPRAZOLE 40 MG TABLET PO SCH (09:00)
[2022-04-24] MEDS: FERROUS SULFATE 325 MG TABLET PO SCH (09:00)
[2022-04-24] MEDS: INSULIN LISPRO 100 UNIT/ML SUBCUT SCH (09:01)
[2022-04-24] MEDS: INSULIN GLARGINE 100 UNIT/ML SUBCUT SCH (09:02)
== END 2022-04-24 10:33 | disposition home or self-care (01) | DRG 638 ==
LOC: EDBD → EDUNIT# → N.ED 13:45 → N.EDINP 21:02 → N.2E 04-22 08:29
PROVIDERS: ADMIT Internal Medicine; ATTEND Internal Medicine